=== PATIENT | male | born 1965 | race Caucasian/White ===

== ENCOUNTER 2020-07-11 02:30 | Outpatient (CLI) | payer BC, SELFPAY ==
[2020-07-11 18:16] LABS: SARS-CoV-2 RNA PCR Negative
== END 2020-07-11 02:31 | disposition home or self-care (01) ==
LOC: ANHCOVIDDT 02:30
PROVIDERS: PCP Physician Assistant; Visit Provider Internal Medicine Gastroenterology
DX: Z01.812 Encounter for preprocedural laboratory examination (principal); Z20.828 Contact with and (suspected) exposure to other viral communicable diseases
CPT/HCPCS: 87635; C9803; U0003

== ENCOUNTER 2020-07-13 01:54 | Day surgery (SDC) | payer BC, SELFPAY ==
[2020-07-07 15:26] VITALS: BMI 42.4
[2020-07-13 06:18] VITALS: BP 139/72; PULSE 51; RESP 16; TEMP 36.6; O2SAT 97; BMI 45.3
[2020-07-13] MEDS: LACTATED RINGERS 1,000 ML 150 ML IV CONT (06:29)
--- NOTE | 2020-07-13 07:07 | WPDANESEPPF ---
Anes - Initial Pre Proc Eval Procedure: Operation Date: 07/13/20 07:30 Proposed Procedures p Screening Colonoscopy - Cuco Weeks MD Date/Time: 07/13/20 07:07 Surgeon: Cuco Weeks MD Pre Op Diagnosis: Neoplasm Screening/ Hx Colon Polyps Patient Data Age: 55 Gender: M Height: 5 ft 11 in Weight: 147.6 kg Last Vital Signs Temp 36.6 C 07/13/20 06:18 Pulse 51 L 07/13/20 06:18 Resp 16 07/13/20 06:18 BP 139/72 07/13/20 06:18 Pulse Ox 97 07/13/20 06:18 Allergies Allergy/AdvReac Type Severity Reaction Status Date / Time No Known Allergies Allergy Verified 07/13/20 06:17 Home Medications Medication Instructions Recorded Confirmed Type fluticasone propionate 1 spray INTRANASAL BID 07/07/20 07/07/20 History montelukast 10 mg PO DAILY 07/07/20 07/07/20 History naproxen 500 mg PO BID 07/07/20 07/07/20 History Patient hx anesthesia problems: none Family hx anesthesia problems: none [facility] Social History Social History Smoking status: Never smoker Alcohol intake: current Drinks per week: 6 Alcohol use details: BEERS Substance use: never Substance use type: does not use Living arrangements: with family Spiritual care concerns: No Anes - Eval Final PreProcedure Day of Procedure 07/13/20 07:07 Patient weight: morbidly obese Heart: regular rate and rhythm Lungs: clear to auscultation Airway: Mallampati scale class II Neurological: alert and oriented Last oral intake: >/= 8 hours ASA classification: III Emergent: no Anesthetic plan: proceed Anesthesia type and monitoring: general GIVS and standard monitoring Informed Consent: The patient's anesthetic plan and its attendant risks and benefits were discussed with the patient/family/POA. Questions were solicited and answers provided to the satisfaction of the patient/family/POA.
--- NOTE | 2020-07-13 08:03 | P.CONGI_ITS ---
Assessment and Plan Assessment and plan (1) History of colon polyps: Code(s): Z86.010 - Personal history of colonic polyps Status: Acute Assessment and Plan: Patient has a personal history of colon polyps as well as a family history of colon polyps in his mother plan is for surveillance colonoscopy now and at 5 year intervals in the future. (2) Family history of colonic polyps: Code(s): Z83.71 - Family history of colonic polyps Status: Acute (3) Obese: Code(s): E66.9 - Obesity, unspecified Status: Acute GI Consult Note Consult date/time: 07/13/20 08:03 HPI: Sourav Evans is a 55 year old male Seen in evaluation at the request of ALESHIA Davis. Patient presents for screening colonoscopy. Patient has a personal history of colon polyps identified 5 years ago. His current weight appetite bowel movements are reported be normal. He denies abdominal pain. He has had no bleeding. Family history is significant that his mother had colon polyps. Review of Systems Review of Systems: All systems reviewed & are unremarkable except as noted in HPI and below [facility] Social History Social History Smoking status: Never smoker Alcohol intake: current Drinks per week: 6 Alcohol use details: BEERS Substance use: never Substance use type: does not use Living arrangements: with family Spiritual care concerns: No Meds Home Medications and Allergies Home Medications Medication Instructions Recorded Confirmed Type fluticasone propionate 1 spray INTRANASAL BID 07/07/20 07/07/20 History montelukast 10 mg PO DAILY 07/07/20 07/07/20 History naproxen 500 mg PO BID 07/07/20 07/07/20 History Allergies Allergy/AdvReac Type Severity Reaction Status Date / Time No Known Allergies Allergy Verified 07/13/20 06:17 Vital Signs Vital Signs - 24 hr 07/13/20 06:18 Temperature 97.9 F Pulse Rate 51 L Respiratory Rate 16 Blood Pressure 139/72 Pulse Oximetry 97 Exam Narrative: Exam Narrative: Physical exam reveals patient to be alert. Vital signs stable. HEENT exam unremarkable. HEENT exam unremarkable. Patient is alert anicteric vital signs stable. Lungs are clear heart is without murmur abdominal exam is obese, bowel sounds are present, soft nontender, with no organomegaly. Digital external rectal exam is normal.
[2020-07-13 08:05] VITALS: BP 140/86; PULSE 62; RESP 20; O2SAT 96
[2020-07-13 08:15] VITALS: BP 143/92; PULSE 59; RESP 18; O2SAT 99
[2020-07-13 08:25] VITALS: BP 144/87; PULSE 62; RESP 18; O2SAT 98
== END 2020-07-13 08:35 | disposition home or self-care (01) ==
PROVIDERS: PCP Physician Assistant; Visit Provider Internal Medicine Gastroenterology
PROC: 0DJD8ZZ Inspection of Lower Intestinal Tract, Via Natural or Artificial Opening Endoscopic (ICD-10-PCS; CPT 45378; principal; 2020-07-13 07:30)
DX: Z12.11 Encounter for screening for malignant neoplasm of colon (principal); K64.8 Other hemorrhoids; Z86.010 Personal history of colon polyps; Z83.71 Family history of colonic polyps; E66.01 Morbid (severe) obesity due to excess calories; Z68.42 Body mass index [BMI] 45.0-49.9, adult
CPT/HCPCS: 45378; J2704; J7120

== ENCOUNTER 2022-03-27 07:21 | Outpatient (CLI) | payer BC, SELFPAY ==
--- NOTE | 2022-04-09 19:42 | WPDHOMESLEEP ---
Sleep Study - Home Unattended Date of Study: 03/27/22 Ordering Provider: Guera Davis, LEONARDA Interpreting Provider: Anu Judge, DO Home Sleep Study Type: Apnea Link Air Height: 1.78 m Weight: 145.15 kg Body Mass Index: 45.9 Neck Circumference (inches): 18 [place]: 19 Reason for Sleep Study Snoring, daytime hypersomnia Sleep History The patient is a 57 year old male with seasonal allergies and benign prostatic hyperplasia that had a sleep study ordered by his primary care for evaluation of sleep apnea. The patient occasionally awakens from sleep short of breath. He occasionally awakens at night with heartburn, belching or cough. He frequently snores and occasionally it is loud enough that others complain. He rarely has trouble sleeping when he has a cold. He rarely wakes up gasping for air throughout the night. He occasionally has breathing problems at night observed by himself or others. He occasionally sweats excessively at night. He rarely notices heart palpitations or irregular heartbeats during the night. He frequently falls asleep during the day. he rarely falls asleep while driving. He denies cataplexy. He rarely has trouble at school or work due to sleepiness. He rarely feels unable to move when waking up or falling asleep. He occasionally experiences vivid dreamlike scenes upon awakening or falling asleep. He denies feeling afraid of going to sleep. He occasionally has nightmares and occasionally remembers his dreams. He occasionally has thoughts racing through his mind. He rarely feels sad or depressed. He constantly has anxiety. He occasionally has muscular tension. He denies noticing parts of his body jerk. He occasionally kicks during the night. He rarely has crawling and aching feelings in his legs but will occasionally have leg pain during the night. He rarely grinds his teeth during sleep but never awakens with morning jaw pain. He is occasionally bothered by pain during the day but rarely awakened by pain during the night. He occasionally wakes up feeling stiff in the morning. He occasionally wakes up with sore achy muscles. He occasionally wakes up with pain in the neck, spine or other joints. He goes to bed at 9:00 p.m. on weekdays and 10:00 p.m. on the weekends. It can take him 15 minutes to several hours to fall asleep. He wakes up twice throughout the night. When he awakens, he will walk through the house in look outside. It can take him 30 minutes to 3 hours to fall back asleep. He wakes up at 5:00 a.m. on both weekdays and weekends. He typically gets 5 hours of sleep per night. He does not stay in bed after waking up in the morning. He currently lives with his and 12-year-old grandson. He does not consume any caffeinated beverages within 2 hours of bedtime. He does not engage in physical exercise before bedtime. He will read and watch television before falling asleep. He will take naps in the afternoon or the evening and they are refreshing. He does not consume any caffeinated beverages throughout the day. He will drink 3-4 beers at least twice per week. He denies tobacco and recreational drug use. [facility] Social History Social History Smoking status: Never smoker Alcohol intake: current Drinks per week: 6 Alcohol use details: BEERS Substance use: never Substance use type: does not use Spiritual care concerns: No Medications Home Medications Medication Instructions Recorded Confirmed Type fluticasone propionate 50 1 spray intranasal BID 07/07/20 07/07/20 History mcg/actuation nasal spray,suspension montelukast 10 mg tablet 10 mg PO DAILY 07/07/20 07/07/20 History naproxen 500 mg tablet,delayed 500 mg PO BID 07/07/20 07/07/20 History release Sleep Procedure This test was performed using 4 channel monitoring including respiratory effort channel, snoring channel, heart rate
[2022-04-09 19:53] VITALS: BMI 45.9
== END 2022-03-28 10:38 | disposition home or self-care (01) ==
PROVIDERS: PCP Physician Assistant; Visit Provider Physician Assistant
DX: G47.39 Other sleep apnea (principal)
CPT/HCPCS: 95806

== ENCOUNTER 2022-06-23 12:37 | Outpatient (CLI) | payer BC, SELFPAY ==
--- NOTE | 2022-06-23 | ECHO_ITS ---
Patient Info Name: Sourav Evans Age: 57 years : 1965 Gender: Male Ht: 70 in Wt: 315 lbs BSA: 2.73 m2 HR: 58 bpm BP: 140 / 78 mmHg Technical Quality: Fair Exam Date: 06/23/2022 1:13 PM Exam Location: [facility] Patient Status: Outpatient Admit Date: 06/23/2022 Staff Ordering Physician: RyanGuera PA-C Concept Artist: Aleena Gentile RDCS Attending Provider: New*Guera PA-C Exam Type: CA echo doppler color flow Study Info Indications 10:G47.33 - OBSTRUCTIVE SLEEP APNEA SYNDROME Complete two-dimensional, color flow and Doppler transthoracic echocardiogram is performed. Summary 1. Complete two-dimensional, color flow and Doppler transthoracic echocardiogram is performed. 2. Left ventricular chamber dimension is mildly enlarged. 3. Left ventricular systolic function is normal, estimated at 60-65%. 4. The left ventricular diastolic function is grade II diastolic dysfunction. 5. E/e' 9 is minimally elevated. 6. There is trace tricuspid valve regurgitation. 7. No pulmonary hypertension, estimated pulmonary arterial systolic pressure is 28 mmHg. Left Ventricle E/e' 9 is minimally elevated. Left ventricular chamber dimension is mildly enlarged. Left ventricular systolic function is normal, estimated at 60-65%. The left ventricular diastolic function is grade II diastolic dysfunction. Right Ventricle Right ventricular systolic function is normal and with normal TAPSE 2.3 cm. Right ventricular chamber dimension is normal. Left Atria Left atrial chamber dimension is normal. Right Atria Right atrial chamber dimension is normal. Aortic Valve The aortic valve is trileaflet. There is no aortic valve stenosis. There is no aortic valve regurgitation. Pulmonic Valve There is no pulmonic regurgitation. Mitral Valve There is no mitral valve stenosis. There is no mitral valve regurgitation. Tricuspid Valve There is trace tricuspid valve regurgitation. No pulmonary hypertension, estimated pulmonary arterial systolic pressure is 28 mmHg. Pericardium/Pleural There is no pericardial effusion. Inferior Vena Cava Normal inferior vena cava with >50% collapse upon inspiration consistent with normal right atrial pressure, 5 mmHg. Aorta The aortic root size at the sinus of Valsalva is normal. Left Ventricular Outflow Tract Name Value Normal LVOT 2D LVOT Diameter 2.2 cm LVOT Doppler LVOT Peak Gradient 5 mmHg LVOT Mean Gradient 2 mmHg LVOT VTI 24 cm LVOT VTI/AV VTI Ratio 1.0 LVOT Stroke Volume 88 ml LVOT CO 16.6 l/min LVOT CI 6.1 l/min/m2 Pulmonic Valve Name Value Normal PV Doppler PV Peak Gradient
== END 2022-06-23 12:38 | disposition home or self-care (01) ==
LOC: ANHCARD 12:38
PROVIDERS: PCP Physician Assistant; Visit Provider Physician Assistant
DX: G47.33 Obstructive sleep apnea (adult) (pediatric) (principal); I51.89 Other ill-defined heart diseases
CPT/HCPCS: 93306

== ENCOUNTER → 2022-07-03 19:59 | Outpatient (CLI) | payer BC, SELFPAY ==
--- NOTE | 2022-07-29 15:44 | WPDSLEEPSTUD ---
Sleep Study Date of Study: 07/03/22 Ordering Provider: Guera Davis, LEONARDA Interpreting Physician: Amy Puente MD Sleep Study Type: CPAP Titration Height: 1.78 m Weight: 156.489 kg Body Mass Index: 49.5 Neck Circumference (inches): 18 [place]: 19 Reason for Sleep Study * 03/27/2022- home sleep test with ApneaLink AHI 28, desaturation 88%. He had a central apnea index of 12.6 which is elevated, greater than 5. He presents for an in-lab PAP titration * 06/23/2022 - Echo - ?Left ventricular systolic function is normal, estimated at 60-65%. Sleep History Sourav Evans is a 57 year old male with seasonal allergies and benign prostatic hyperplasia. The patient occasionally awakens from sleep short of breath.? He occasionally awakens at night with heartburn, belching or cough.? He frequently snores and occasionally it is loud enough that others complain.? He rarely has trouble sleeping when he has a cold.? He rarely wakes up gasping for air throughout the night.? He occasionally has breathing problems at night observed by others.? He occasionally sweats excessively at night.? He rarely notices heart palpitations or irregular heartbeats during the night.? He frequently falls asleep during the day. He rarely falls asleep while driving.? He denies loss of muscle tone with strong emotion. He rarely has trouble at work due to sleepiness.? He rarely feels unable to move when waking up or falling asleep.? He occasionally experiences vivid dreamlike scenes upon awakening or falling asleep.? He denies feeling afraid of going to sleep.? He occasionally has nightmares and occasionally remembers his dreams.? He occasionally has thoughts racing through his mind.? He rarely feels sad or depressed.? He constantly has anxiety.? He occasionally has muscular tension.? He denies noticing parts of his body jerk.? He occasionally kicks during the night.? He rarely has crawling and aching feelings in his legs but will occasionally have leg pain during the night.? He rarely grinds his teeth during sleep but never awakens with morning jaw pain.? He is occasionally bothered by pain during the day but rarely awakened by pain during the night.? He occasionally wakes up feeling stiff in the morning.? He occasionally wakes up with sore achy muscles.? He occasionally wakes up with pain in the neck, spine or other joints.? He goes to bed at 9:00 p.m. on weekdays and 10:00 p.m. on the weekends.? It can take him 15 minutes to several hours to fall asleep.? He wakes up twice throughout the night.? When he awakens, he will walk through the house. It can take him 30 minutes to 3 hours to fall back asleep.? He wakes at 5:00 a.m. on both weekdays and weekends.? He typically gets 5 hours of sleep per night.? He does not stay in bed after waking up in the morning.? He currently lives with his and 12-year-old grandson.? He does not consume any caffeinated beverages within 2 hours of bedtime.? He does not engage in physical exercise before bedtime.? He will read and watch television before falling asleep.? He will take naps in the afternoon or the evening and they are refreshing.? He does not consume any caffeinated beverages throughout the day.? He will drink 3-4 beers at least twice per week.? He denies tobacco and recreational drug use. [facility] Social History Social History Smoking status: Never smoker Alcohol intake: current Drinks per week: 6 Alcohol use details: BEERS Substance use: never Substance use type: does not use Spiritual care concerns: No Medications Home Medications Medication Instructions Recorded Confirmed Type fluticasone propionate 50 1 spray intranasal BID 07/07/20 07/07/20 History mcg/actuation nasal spray,suspension montelukast 10 mg tablet 10 mg PO DAILY 07/07/20 07/07/20 History naproxen 500 mg tablet,delayed 500 mg PO BID 07/07/20 07/07/20 History release
[2022-07-29 16:19] VITALS: BMI 49.5
== END ==
PROVIDERS: PCP Physician Assistant; Visit Provider Physician Assistant
DX: G47.33 Obstructive sleep apnea (adult) (pediatric) (principal); N40.0 Benign prostatic hyperplasia without lower urinary tract symptoms
CPT/HCPCS: 95811

== ENCOUNTER 2023-05-02 01:56 | Day surgery (SDC) | payer BC, SELFPAY ==
[2023-04-24 15:16] VITALS: BMI 45.9
[2023-05-02 08:43] VITALS: BP 146/76; PULSE 49; RESP 20; TEMP 36.2; O2SAT 98; BMI 47.0
--- NOTE | 2023-05-02 08:49 | P.PNAN_ITS ---
Anes - Initial Pre Proc Eval Procedure: Operation Date: 05/02/23 09:30 Proposed Procedures p Colonoscopy - Cuco Weeks MD Date/Time: 05/02/23 08:49 Surgeon: Cuco Weeks MD Pre Op Diagnosis: hx of colon polyps Patient Data Age: 58 Gender: M Height: 1.78 m Weight: 148.9 kg Last Vital Signs Temp 97.2 F L 05/02/23 08:43 Pulse 49 L 05/02/23 08:43 Resp 20 05/02/23 08:43 BP 146/76 H 05/02/23 08:43 Pulse Ox 98 05/02/23 08:43 O2 Del Method Room Air 05/02/23 08:43 Allergies Allergy/AdvReac Type Severity Reaction Status Date / Time No Known Allergies Allergy Verified 05/02/23 08:42 Home Medications Medication Instructions Recorded Confirmed Type fluticasone propionate 50 1 spray intranasal BID 07/07/20 05/02/23 History mcg/actuation nasal spray,suspension montelukast 10 mg tablet 10 mg PO DAILY 07/07/20 05/02/23 History naproxen 500 mg tablet,delayed 500 mg PO DAILY 07/07/20 05/02/23 History release diltiazem HCl 120 mg 120 mg PO DAILY 04/24/23 05/02/23 History capsule,extended release 24 hr tamsulosin 0.4 mg capsule 0.4 mg PO HS 04/24/23 05/02/23 History Patient hx anesthesia problems: none Family hx anesthesia problems: none Results Review: All pre-operative results and documents have been reviewed as part of the pre- operative evaluation. [facility] Social History Social History Smoking status: Never smoker Alcohol intake: current Drinks per week: 12 Alcohol use details: BEERS Substance use: never Substance use type: does not use Living arrangements: with family Spiritual care concerns: No Anes - Eval Final PreProcedure Day of Procedure 05/02/23 08:49 Patient weight: morbidly obese Heart: regular rate and rhythm Lungs: clear to auscultation Airway: Mallampati scale class II Neurological: alert and oriented Last oral intake: >/= 8 hours ASA classification: III Emergent: no Anesthetic plan: proceed Anesthesia type and monitoring: general GIVS and standard monitoring Results Review: All pre-operative results and documents have been reviewed as part of the pre- operative evaluation. Informed Consent: The patient's anesthetic plan and its attendant risks and benefits were discussed with the patient/family/POA. Questions were solicited and answers provided to the satisfaction of the patient/family/POA.
--- NOTE | 2023-05-02 08:54 | PM.HPGS ---
History of Present Illness History of Present Illness Consent: Risks, benefits, and alternatives have been discussed and questions answered. Patient agrees to proceed with procedure. Chief complaint: hx of colon polyps Narrative: Sourav Evans is a 58 year old male Presents for screening colonoscopy. Patient has a history of colon polyps in the past. Most of these exams were performed in [place]. Most recent colonoscopy 2020 was unremarkable. Family history is significant that his mother has had colon polyps. Patient presents today for screening colonoscopy. He reports his current weight appetite and bowel movements are normal. Review of Systems Review of Systems: Review of systems noncontributory. [facility] Social History Social History Smoking status: Never smoker Alcohol intake: current Drinks per week: 12 Alcohol use details: BEERBrionna Substance use: never Substance use type: does not use Living arrangements: with family Spiritual care concerns: No Meds Home Medications and Allergies Home Medications Medication Instructions Recorded Confirmed Type fluticasone propionate 50 1 spray intranasal BID 07/07/20 05/02/23 History mcg/actuation nasal spray,suspension montelukast 10 mg tablet 10 mg PO DAILY 07/07/20 05/02/23 History naproxen 500 mg tablet,delayed 500 mg PO DAILY 07/07/20 05/02/23 History release diltiazem HCl 120 mg 120 mg PO DAILY 04/24/23 05/02/23 History capsule,extended release 24 hr tamsulosin 0.4 mg capsule 0.4 mg PO HS 04/24/23 05/02/23 History Allergies Allergy/AdvReac Type Severity Reaction Status Date / Time No Known Allergies Allergy Verified 05/02/23 08:42 Vital Signs Vital Signs - 24 hr 05/02/23 08:43 Temperature 97.2 F L Pulse Rate 49 L Respiratory Rate 20 Blood Pressure 146/76 H Pulse Oximetry 98 Oxygen Delivery Room Air Exam Narrative: Physical exam reveals patient to be alert. Vital signs stable. HEENT exam is unremarkable. Patient is anicteric. Lungs are clear to auscultation and percussion. Heart is without murmur or extra sounds. Abdominal exam bowel sounds are present soft nontender with no organomegaly. Digital external rectal exam is normal. Assessment and Plan Assessment and plan (1) Family history of colonic polyps: Code(s): Z83.71 - Family history of colonic polyps Status: Acute Assessment and Plan: Patient's mother has had colon polyps. Patient himself has had colon polyps. Anticipate follow-up colonoscopy at 5 year intervals. Further recommendations may be given after endoscopy. (2) History of colon polyps: Code(s): Z86.010 - Personal history of colonic polyps Status: Acute
[2023-05-02] MEDS: LACTATED RINGERS 1,000 ML 150 ML IV CONT (08:55)
[2023-05-02 09:49] VITALS: BP 124/71; PULSE 64; RESP 20; O2SAT 96
[2023-05-02 09:59] VITALS: BP 123/72; PULSE 63; RESP 15; O2SAT 97
[2023-05-02 10:09] VITALS: BP 139/82; PULSE 55; RESP 19; O2SAT 97
== END 2023-05-02 10:22 | disposition home or self-care (01) ==
PROVIDERS: PCP Physician Assistant; Visit Provider Internal Medicine Gastroenterology
PROC: 0DJD8ZZ Inspection of Lower Intestinal Tract, Via Natural or Artificial Opening Endoscopic (ICD-10-PCS; CPT 45378; principal; 2023-05-02 09:30)
DX: Z12.11 Encounter for screening for malignant neoplasm of colon (principal); Z86.010 Personal history of colon polyps; Z83.71 Family history of colonic polyps; E66.01 Morbid (severe) obesity due to excess calories; Z68.42 Body mass index [BMI] 45.0-49.9, adult
CPT/HCPCS: 45378; J2704; J7120

== ENCOUNTER 2024-02-13 14:05 | Outpatient (CLI) | payer BC, SELFPAY | END 2024-02-13 14:06 | disposition home or self-care (01) | PROVIDERS: PCP Physician Assistant; Visit Provider Urology | DX: Z01.818 Encounter for other preprocedural examination (principal); R97.20 Elevated prostate specific antigen [PSA] | CPT/HCPCS: 87086 ==

== ENCOUNTER 2024-02-18 00:47 | Day surgery (SDC) | payer BC, SELFPAY ==
[2024-02-06 09:04] VITALS: BMI 47.4
--- NOTE | 2024-02-06 09:09 | PC.NURSE ---
Report to the Outpatient Waiting Room, entrance under the green pavilion located off [facility], at time _0800_ on date _[id number]_. Planned Procedure Time: _1000_. Time changes happen often and if your time is changed the preop area will call you the afternoon before. - You and your visitor will be asked to self-screen and do not enter if you have any COVID symptoms. - A mask is optional within the hospital at this time. Patients may have clear liquids (water, carbonated beverages, clear teas, apple juice) until 3 hours prior to surgery with a maximum of 20 ounces. - No food from midnight until time of surgery Take the following medications with a SIP of water the morning of surgery: ___Diltiazem and Flonase DO NOT STOP ANY OF YOUR OTHER PRESCRIPTION MEDICATIONS PRIOR TO SURGERY ?EXCEPT THE FOLLOWING Medications to discontinue per physician ___Please ask Dr Martin office about the naproxen. Date to take last dose Please no make-up, nail kazakh, hairspray, perfume, deodorant, or body powder the day of surgery. No jewelry (including any body piercings) or valuables the day of surgery, leave them at home. Please take a shower or bath the night before, or the morning of, surgery with an antibacterial soap. Wear comfortable, loose fitting clothing. - Jewelry must be removed prior to entering the operating room. Rings and piercings that are not removed may be cut off. - The hospital will not accept responsibility for valuables. - Please leave all valuables, including medications, at home the day of surgery. If you are going home after surgery, a licensed cdl dedicated truck driver must drive you home. - NO public transportation without another adult if you receive anesthesia. - We recommend that an adult stay with you for 24 hours following discharge. - We also recommend that you do not drive, make important decision, drink alcoholic beverages, or take any drugs that were not prescribed by your health care provider for at least 24 hours after your discharge time. Follow any additional instructions given to you from your surgeon. If you or anyone in your household have experienced Covid symptoms in the past week, please notify your surgeon or the nurse liaison at the phone number below for possible testing. Telephone instructions given to _Sourav___and asked if any additional questions and then verbalized understanding. Patient advised to call surgeon office or pre surgery nurse liaison [phone] if any additional questions.
--- NOTE | 2024-02-11 16:06 | PC.NURSE ---
Report to the Outpatient Waiting Room, entrance under the green pavilion located off [facility], at time _0600_ on date _[id number]_. Planned Procedure Time: _0730_. Time changes happen often and if your time is changed the preop area will call you the afternoon before. - You and your visitor will be asked to self-screen and do not enter if you have any COVID symptoms. - A mask is optional within the hospital at this time. Patients may have clear liquids (water, carbonated beverages, clear teas, apple juice) until 3 hours prior to surgery with a maximum of 20 ounces. - No food from midnight until time of surgery Take the following medications with a SIP of water the morning of surgery: ___Diltiazem and Flonase DO NOT STOP ANY OF YOUR OTHER PRESCRIPTION MEDICATIONS PRIOR TO SURGERY ?EXCEPT THE FOLLOWING Medications to discontinue per physician ____Please ask Dr Martin office about Naproxen____ Date to take last dose Please no make-up, nail argentine, hairspray, perfume, deodorant, or body powder the day of surgery. No jewelry (including any body piercings) or valuables the day of surgery, leave them at home. Please take a shower or bath the night before, or the morning of, surgery with an antibacterial soap. Wear comfortable, loose fitting clothing. - Jewelry must be removed prior to entering the operating room. Rings and piercings that are not removed may be cut off. - The hospital will not accept responsibility for valuables. - Please leave all valuables, including medications, at home the day of surgery. If you are going home after surgery, a licensed cdl team truck driver must drive you home. - NO public transportation without another adult if you receive anesthesia. - We recommend that an adult stay with you for 24 hours following discharge. - We also recommend that you do not drive, make important decision, drink alcoholic beverages, or take any drugs that were not prescribed by your health care provider for at least 24 hours after your discharge time. Follow any additional instructions given to you from your surgeon. If you or anyone in your household have experienced Covid symptoms in the past week, please notify your surgeon or the nurse liaison at the phone number below for possible testing. Telephone instructions given to _Sourav__and asked if any additional questions and then verbalized understanding. Patient advised to call surgeon office or pre surgery nurse liaison [phone] if any additional questions.
[2024-02-18 06:02] VITALS: BP 147/69; PULSE 60; RESP 18; TEMP 36.3; O2SAT 95
[2024-02-18] MEDS: LACTATED RINGERS 1,000 ML 30 ML IV CONT (06:22)
--- NOTE | 2024-02-18 06:48 | P.PNAN_ITS ---
Anes - Initial Pre Proc Eval Procedure: Operation Date: 02/18/24 07:30 Proposed Procedures p Transrectal Fusion Guided Prostate Biopsy - Arsenio Martin MD Date/Time: 02/18/24 06:48 Surgeon: Arsenio Martin MD Pre Op Diagnosis: elevated psa Patient Data Age: 58 Gender: M Height: 1.78 m Weight: 151.9 kg Last Vital Signs Temp 97.4 F L 02/18/24 06:02 Pulse 60 02/18/24 06:02 Resp 18 02/18/24 06:02 BP 147/69 H 02/18/24 06:02 Pulse Ox 95 02/18/24 06:02 O2 Del Method Room Air 02/18/24 06:02 Allergies Allergy/AdvReac Type Severity Reaction Status Date / Time No Known Allergies Allergy Verified 02/18/24 06:12 Home Medications Medication Instructions Recorded Confirmed Type fluticasone propionate 50 1 spray intranasal BID 07/07/20 02/18/24 History mcg/actuation nasal spray,suspension montelukast 10 mg tablet 10 mg PO DAILY 07/07/20 02/18/24 History naproxen 500 mg tablet,delayed 500 mg PO DAILY 07/07/20 02/18/24 History release diltiazem HCl 120 mg 120 mg PO DAILY 04/24/23 02/18/24 History capsule,extended release 24 hr tamsulosin 0.4 mg capsule 0.4 mg PO HS 04/24/23 02/18/24 History Patient hx anesthesia problems: none Family hx anesthesia problems: none Results Review: All pre-operative results and documents have been reviewed as part of the pre-operative evaluation. [facility] Social History Social History Smoking status: Never smoker Alcohol intake: current Drinks per week: 4 Alcohol use details: BEERS Substance use: never Substance use type: does not use Living arrangements: with family Spiritual care concerns: No Anes - Eval Final PreProcedure Day of Procedure 02/18/24 06:48 Patient weight: obese Heart: regular rate and rhythm Lungs: clear to auscultation Airway: Mallampati scale class II Neurological: alert and oriented Last oral intake: >/= 8 hours ASA classification: III Emergent: no Anesthetic plan: proceed Anesthesia type and monitoring: general GIVS and standard monitoring Results Review: All pre-operative results and documents have been reviewed as part of the pre- operative evaluation. Informed Consent: The patient's anesthetic plan and its attendant risks and benefits were discussed with the patient/family/POA. Questions were solicited and answers provided to the satisfaction of the patient/family/POA.
--- NOTE | 2024-02-18 07:23 | WPDHPUPDATE1 ---
History and Physical Update Update Date/Time: 02/18/24 07:23 History and Physical has been reviewed, including an updated exam of the patient. There are NO changes in the patient's condition. Risks, benefits, and alternatives have been discussed and questions answered. Patient agrees to proceed with procedure. Proceed with uronav us and prostate biopsy
[2024-02-18] MEDS: ceFAZolin 3 GM/D5W 100 ML 100 ML IVPB (07:30)
--- NOTE | 2024-02-18 07:53 | W.PM.PROC2 ---
Procedure Note - Detailed Date of Procedure 02/18/24 Pre-op Diagnosis elevated psa Post-op Diagnosis Same Procedure Performed Uronav us and prostate biopsy Surgeon Arsenio Martin MD Anesthesia MAC Description of Procedure Patient was taken to the operative suite correctly identified. He was placed in lateral decubitus position and IV sedation was given. Transrectal ultrasound was then performed. The MRI image was fused to the ultrasound machine. Three cores were taken from the region of interest. Twelve standard cores were then taken. Patient tolerated procedure well without any complications was taken recovery stable condition. He is to call for path results in 1 week. This completes dictation. Please send a copy of op note to my office. Drains No Packing No Pathology Yes Complications No immediate complications Condition Stable Disposition PACU
[2024-02-18 08:03] VITALS: BP 140/68; PULSE 59; RESP 16; O2SAT 96
[2024-02-18 08:30] VITALS: BP 153/65; PULSE 60
[2024-02-18 08:55] VITALS: BP 147/78; PULSE 48
--- NOTE | 2024-02-18 09:02 | SUR.PHASEII ---
Vitals are stable. Patient is unhooked from the monitors waiting for a ride.
== END 2024-02-18 09:06 | disposition home or self-care (01) ==
PROVIDERS: PCP Physician Assistant; Visit Provider Urology
PROC: (CPT 55700; principal; 2024-02-18 07:30)
DX: C61 Malignant neoplasm of prostate (principal); E66.9 Obesity, unspecified; Z68.42 Body mass index [BMI] 45.0-49.9, adult
CPT/HCPCS: 76872; 55700; 88342; G0416; J0690; J2250; J2405; J2704; J3010; J7120

== ENCOUNTER 2024-12-14 13:42 | Outpatient (CLI) | payer BC, SELFPAY ==
--- NOTE | ~2024-12-14 | US_ITS ---
EXAMINATION:US venous doppler LE BI INDICATION:Localized edema TECHNIQUE: Multiple grayscale, color flow and Doppler images of the right and left lower extremity de ep venous systems were obtained and reviewed. COMPARISON:No prior studies for comparison. FINDINGS: The common femoral, superficial femoral and popliteal veins demonstrate normal respiratory variation, augmentation and compressibility. Color flow is also seen within the posterior tibial, pe roneal, greater saphenous and profunda veins. IMPRESSION: 1: No lower extremity deep venous thrombosis. Reviewed, dictated and finalized at location B.
--- OUTSIDE RECORDS SUMMARY | 2024-12-14 16:20 | XMS_ITS | Clinical Summary ---
Author Organization [facility] [address] Address [address] [place] [address] Care Team Providers Care Deputy Probation Officer Name Role Phone StephanieGuera garland Nancy MONK Primary Care Pr ovider Allergies No known active allergies Medications ibuprofen (ibuprofen) 200 mg tab/cap Take by mouth every 6 (six) hours as needed for pain. Active dilTIAZem CD 120 mg 24 hr capsule Take 1 capsule (120 mg total) by mouth daily 4 Active fluticasone propionate (FLONASE) 50 mcg/actuation nasal spray Administer 2 sprays into each nostril daily Active montelukast (SINGULAIR) 10 mg tablet Take 1 tablet (10 mg total) by mouth daily Active tadalafiL (CIALIS) 20 mg tablet Take 1 tablet (20 mg total) by mouth daily as needed Active tamsulosin (FLOMAX) 0.4 mg extended release capsule Take 1 capsule (0.4 mg total) by mouth Active celecoxib (CeleBREX) 100 mg capsule TAKE 1 CAPSULE BY MOUTH TWICE A DAY 60 capsule 4 Active Active Problems Problem Noted Date Diagnosed Date Primary osteoarthritis of left knee 01/05/2019 Surgical History Surgery Date Site/Laterality Comments ROTATOR CUFF REPAIR SHOULDER SURGERY Medical History Medical History Date Comments Known health problems: none Family History Medical History Relation Name Comments No Known Problems Father No Known Problems Mother No Known Problems Sister Relation Name Status Comments Father Mother Sister Social History Tobacco Use Types Packs/Day Years Used Date Smoking Tobacco: Never Smokeless Tobacco: Never Alcohol Use Standard Drinks/Week Comments Yes 0 (1 standard drink = 0.6 oz pur e alcohol) Personal Safety Answer Date Recorded Getting School Help Needed Not on file 12/14 Sex and Gender Information Value Date Recorded Sex Assigned at Not on file 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 Gender Identity Not on file Sexual Orientation Not on file Obstetrics History Last Filed Vital Signs Vital Sign Reading Time Taken Comments Blood Pressure 126/75 01/08/2019 9:53 AM CDT Pulse 58 01/08/2019 9:53 AM CDT Temperature - - Respiratory Rate - - Oxygen Saturation - - Inhaled Oxygen Concentration - - Weight 152.4 kg (336 lb) 02/27/2024 2:18 PM CDT Height 179.1 cm (5' 10.5 ) 02/27/2024 2:18 PM CD T Body Mass Index 47.53 02/27/2024 2:18 PM CDT Plan of Treatment Health Maintenance Due Date Last Done Comments Colon Cancer Screening-Colonoscopy 1965 Depression Screening 1965 Hepatitis C Screening 1965 Prostate Cancer Screening-PSA 1965 DTaP/Tdap/Td Vaccine (1 - Tdap) 02/27/1975 Hepatitis B Screening 02/27/1982 Regular Well Visit/Exam 18-64 02/27/1982 Zoster Vaccine (1 of 2) 02/27/2014 08/10/2023 Influenza Vaccine (#1) 2024 3, 07/20/2022, 05/31/2021, Additional history exists Pneumococcal vaccine <65 Aged Out 08/10/2023 No longer eligible based on patient's age to complete this topic Insurance [employer] Care Teams Deputy Probation Officer Relationship Specialty Start Date End Date Guera Davis PA PCP - General Physician Backup Administrative Coordinator 09/02/18
--- OUTSIDE RECORDS SUMMARY | 2024-12-14 16:20 | XMS_ITS | Data Portability ---
Author Organization [facility] [place] HELEN[place]gie Address [address] [facility] [facility] [place] [address] Care Team Providers Care Media Sales Consultant Name Role Phone CAPRICE CARBALLO Primary Care Provider Unavailab le Assessment No assessment recorded. Plan of Treatment Reminders Order Date Submit Date Provider Last Modified By Organization Details Last Modified Time Details Appointments ANY 15 2024 04:15P M ALESHIA Ervin Not available Not available Not available Lab TSH + free T4, serum 2023 024 [email or web address] [facility], [address] [place] [address], [id number], 05/05/2024 07:53:07 CMP, serum or plasma 2023 024 [email or web address] [facility], [address] [place] [address], [id number], 05/05/2024 07:53:06 CBC w/ auto diff 2023 024 [email or web address] [facility], [address] [place] [address], [id number], 05/05/2024 07:53:06 lipid panel, serum 2023 024 [facility], [address] [place] [address], [facility], [place], [address], 05/05/2024 07:53:06 HbA1c (hemoglob in A1c), blood 2023 024 [email or web address] [facility], [address] [place] [address] 2, [place], [address], 05/05/2024 07:53:07 Referral None recorded. Procedures None recorded. Surgeries None recorded. Imaging None recorded. Medication Orders monteluka st 10 mg tablet 2023 [email or web address] [facility] #[id number], [address] [place], [address], 12/07/2024 17:18:14 fluticaso ne propionat e 50 mcg/actua tion nasal spray,isaak pension 2023 [id number], [address] [place], [address], 12/04/2023 09:27:49 diltiazem CD 120 mg capsule,e xtended release 24 hr 2023 [id number], [address] [place], [address], 12/04/2023 09:27:49 Patient TargetsNo targets recorded. Patient Instructions Encounter Date Encounter Id Patient Instructions Last Modified By Organization Details Last Modified Time 06/10/2024 [id number] A healthy lifestyle: care instructions [email or web address] Not available 06/28/2024 12:29:56 Reason for Referral None Reported. Results Created Date Observation Date Name Description Value Unit Range Abnormal Flag Note LastModifiedBy Organization Detail LastModifiedTime 05/16/2005/19/2024 Bacte judy ident ified in Urine by Cultu re bacteria identified in urine by culture cultu re, urine , routi ne Not Available Not Available 11/16/2024 15:26:48 05/16/2005/19/2024 Urina lysis compl ete panel - Urine color of urine YELLOW color Not Available Not Available 10/31 15:26:48 05/16/2005/19/2024 Urina lysis compl ete panel - Urine appearance of urine CLEAR appea luiz Not Available Not Available 11/16/2024 15:26:48 05/16/2005/19/2024 Urina lysis compl ete panel - Urine specific gravity of urine by test strip 1.02 speci fic gravi ty Not Available Not Available 11/16/2024 15:26:48 05/16/2005/19/2024 Urina lysis compl ete panel - Urine pH of urine by test strip 5.5 pH Not Available Not Available 10/31 15:26:48 05/16/20 24 05/19/2024 Urina lysis compl ete panel - Urine glucose [presence] in urine by test strip NEGATI VE gluco se Not Available Not Available 11/16/2024 15:26:48 05/16/20 24 05/19/2024 Urina lysis compl ete panel - Urine bilirubin.to jonas [presence] in urine by test strip NEGATI VE bilir ubin Not Available Not Available 11/16/2024 15:26:48 05/16/20 24 05/19/2024 Urina lysis compl ete panel - Urine ketones [presence] in urine by test strip NEGATI VE keton es Not Available Not Available 11/16/2024 15:26:48 05/16/20 24 05/19/2024 Urina lysis compl ete panel - Urine hemoglobin [presence] in urine by test strip NEGATI VE occul t blood Not Available Not Available 11/16/2024 15:26:48 05/16/20 24 05/19/2024 Urina lysis compl ete panel - Urine protein [presence] in urine by test strip NEGATI VE prote in Not Available Not Available 11/16/2024 15:26:48 05/16/20 24 05/19/2024 Urina lysis compl ete panel - Urine nitrite [presence] in urine by test strip NEGATI VE nitri te Not Available Not Available 11/16/2024 15:26:48 05/16/20 24 05/19/2024 Urina lysis compl ete panel - Urine leukocyte esterase [presence] in urine by test strip NEGATI VE leuko cyte vivek ase Not Available Not Available 11/16/2024 15:26:48 05/16/20 24 05/19/2024 Urina lysis compl ete panel - Urine leukocytes [#/area] in urine sediment by microscopy high power field NONE SEEN WBC Not Available Not Available 15:26:48 05/16/20 24 05/19/2024 Urina lysis compl ete panel - Urine erythrocytes [#/area] in urine sediment by microscopy high power field NONE SEEN RBC Not Available Not Available 15:26:48 05/16/20 24 05/19/2024 Urina lysis compl ete panel - Urine epithelial cells.squamo us [#/area] in urine sediment by microscopy high power field NONE SEEN squam ous epith elial cells Not Available Not Available 11/16/2024 15:26:48 05/16/20 24 05/19/2024 Urina lysis compl ete panel - Urine bacteria [#/area] in urine sediment by microscopy high power field NONE SEEN bacte judy Not Available Not Available 11/16/2024 15:26:48 05/16/20 24 05/19/2024 Urina lysis compl ete panel - Urine hyaline casts [#/area] in urine sediment by microscopy low power field NONE SEEN hyali ne cast Not Available Not Available 11/16/2024 15:26:48 05/16/20 24 05/19/2024 CBC W Auto Diffe renti al panel - Blood leukocytes [#/volume] in blood by automated count white blood cell count Not Available Not Available 11/16/2024 15:26:47 05/16/20 24 05/19/2024 CBC W Auto Diffe renti al panel - Blood erythrocytes [#/volume] in blood by automated count red blood cell count Not Available Not Available 11/16/2024 15:26:47 05/16/20 24 05/19/2024 CBC W Auto Diffe renti al panel - Blood hemoglobin [mass/volume ] in blood hemog lobin Not Available Not Available 11/16/2024 15:26:47 05/16/20 24 05/19/2024 CBC W Auto Diffe renti al panel - Blood hematocrit [volume fraction] of blood by automated count hemat ocrit Not Available Not Available 11/16/2024 15:26:47 05/16/20 24 05/19/2024 CBC W Auto Diffe renti al panel - Blood MCV [entitic volume] by automated count MCV Not Available Not Available 10/31 15:26:47 05/16/20 24 05/19/2024 CBC W Auto Diffe renti al panel - Blood MCH [entitic mass] by automated count MCH Not Available Not Available 10/31 15:26:47 05/16/20 24 05/19/2024 CBC W Auto Diffe renti al panel - Blood MCHC [mass/volume ] by automated count MCHC Not Available Not Available 10/31 15:26:47 05/16/20 24 05/19/2024 CBC W Auto Diffe renti al panel - Blood erythrocyte distribution width [ratio] by automated count RDW Not Available Not Available 10/31 15:26:47 05/16/20 24 05/19/2024 CBC W Auto Diffe renti al panel - Blood platelets [#/volume] in blood by automated count plate let count Not Available Not Available 11/16/2024 15:26:47 05/16/20 24 05/19/2024 CBC W Auto Diffe renti al panel - Blood platelet mean volume [entitic volume] in blood by jovany MPV Not Available Not Available 0 11/16/2024 15:26:47 05/16/20 24 05/19/2024 CBC W Auto Diffe renti al panel - Blood neutrophils [#/volume] in blood by automated count absol table mountain neutr ophil s Not Available Not Available 11/16/2024 15:26:47 05/16/20 24 05/19/2024 CBC W Auto Diffe renti al panel - Blood lymphocytes [#/volume] in blood by automated count absol table mountain lymph ocyte s Not Available Not Available 11/16/2024 15:26:47 05/16/20 24 05/19/2024 CBC W Auto Diffe renti al panel - Blood monocytes [#/volume] in blood by automated count absol table [place] monoc ytes Not Available Not Available 11/16/2024 15:26:47 05/16/20 24 05/19/2024 CBC W Auto Diffe renti al panel - Blood eosinophils [#/volume] in blood by automated count absol table mountain eosin ophil s Not Available Not Available 11/16/2024 15:26:47 05/16/20 24 05/19/2024 CBC W Auto Diffe renti al panel - Blood basophils [#/volume] in blood by automated count absol table mountain basop hils Not Available Not Available 11/16/2024 15:26:47 05/16/20 24 05/19/2024 CBC W Auto Diffe renti al panel - Blood neutrophils/ 100 leukocytes in blood by automated count neutr ophil s Not Available Not Available 11/16/2024 15:26:47 05/16/20 24 05/19/2024 CBC W Auto Diffe renti al panel - Blood lymphocytes/ 100 leukocytes in blood by automated count lymph ocyte s Not Available Not Available 11/16/2024 15:26:47 05/16/20 24 05/19/2024 CBC W Auto Diffe renti al panel - Blood monocytes/10 0 leukocytes in blood by automated count monoc ytes Not Available Not Available 11/16/2024 15:26:47 05/16/20 24 05/19/2024 CBC W Auto Diffe renti al panel - Blood eosinophils/ 100 leukocytes in blood by automated count eosin ophil s Not Available Not Available 11/16/2024 15:26:47 05/16/20 24 05/19/2024 CBC W Auto Diffe renti al panel - Blood basophils/10 0 leukocytes in blood by automated count basop hils Not Available Not Available 11/16/2024 15:26:47 05/16/20 24 05/19/2024 Hemog lobin A1c/H emogl obin. total in Blood hemoglobin A1C/hemoglob in.total in blood high hemog lobin A1C Not Available Not Available 11/16/2024 15:26:47 05/16/20 24 05/19/2024 Compr ehens johnny metab olic 1999 panel - Serum or Plasm a glucose [mass/volume ] in serum or plasma high gluco se Not Available Not Available 11/16/2024 15:26:47 05/16/20 24 05/19/2024 Compr ehens johnny metab olic 2000 panel - Serum or Plasm a urea nitrogen [mass/volume ] in serum or plasma urea nitro gen (BUN) Not Available Not Available 11/16/2024 15:26:47 05/16/20 24 05/19/2024 Compr ehens johnny metab olic 2000 panel - Serum or Plasm a creatinine [mass/volume ] in serum or plasma creat inine Not Available Not Available 11/16/2024 15:26:47 05/16/20 24 05/19/2024 Compr PayParrotens johnny metab olic 1999 panel - Serum or Plasm a glomerular filtration rate/1.73 sq M.predicted [volume rate/area] in serum, plasma or blood by creatinine-b ased formula (CKD-epi 2020) eGFR Not Available Not Available 10/31 15:26:47 05/16/20 24 05/19/2024 Compr ehens johnny metab olic 1999 panel - Serum or Plasm a urea nitrogen/cre atinine [mass ratio] in serum or plasma SEE NOTE: BUN/c reati nine ratio Not Available Not Available 11/16/2024 15:26:47 05/16/20 24 05/19/2024 Compr PayParrotens johnny metab olic 1999 panel - Serum or Plasm a sodium [moles/volum e] in serum or plasma sodiu m Not Available Not Available 11/16/2024 15:26:47 05/16/20 24 05/19/2024 Compr ehens johnny metab olic 1999 panel - Serum or Plasm a potassium [moles/volum e] in serum or plasma potas sium Not Available Not Available 11/16/2024 15:26:47 05/16/20 24 05/19/2024 Compr PayParrotens johnny metab olic 1999 panel - Serum or Plasm a chloride [moles/volum e] in serum or plasma chlor olivia Not Available Not Available 11/16/2024 15:26:47 05/16/20 24 05/19/2024 Compr PayParrotens johnny metab olic 1999 panel - Serum or Plasm a carbon dioxide, total [moles/volum e] in serum or plasma carbo n dioxi de Not Available Not Available 11/16/2024 15:26:47 05/16/20 24 05/19/2024 Compr PayParrotens johnny metab olic 1999 panel - Serum or Plasm a calcium [mass/volume ] in serum or plasma calci um Not Available Not Available 11/16/2024 15:26:47 05/16/20 24 05/19/2024 Compr PayParrotens johnny metab olic 1999 panel - Serum or Plasm a protein [mass/volume ] in serum or plasma prote in, total Not Available Not Available 11/16/2024 15:26:47 05/16/20 24 05/19/2024 Compr PayParrotens johnny metab ol 1999 panel - Serum or Plasm a albumin [mass/volume ] in serum or plasma album in Not Available Not Available 11/16/2024 15:26:47 05/16/20 24 05/19/2024 Compr PayParrotens johnny metab olic 1999 panel - Serum or Plasm a globulin [mass/volume ] in serum by calculation globu soto Not Available Not Available 11/16/2024 15:26:47 05/16/20 24 05/19/2024 Compr PayParrotens johnny metab olic 1999 panel - Serum or Plasm a albumin/glob ulin [mass ratio] in serum or plasma album in/gl obuli n ratio Not Available Not Available 11/16/2024 15:26:47 05/16/20 24 05/19/2024 Compr PayParrotens johnny metab olic 1999 panel - Serum or Plasm a bilirubin.to jonas [mass/volume ] in serum or plasma bilir ubin, total Not Available Not Available 11/16/2024 15:26:47 05/16/20 24 05/19/2024 Compr PayParrotens johnny metab olic 1999 panel - Serum or Plasm a alkaline phosphatase [enzymatic activity/vol ume] in serum or plasma alkal ine phosp hatas e Not Available Not Available 11/16/2024 15:26:47 05/16/20 24 05/19/2024 Compr PayParrotens johnny metab olic 1999 panel - Serum or Plasm a aspartate aminotransfe rase [enzymatic activity/vol ume] in serum or plasma AST Not Available Not Available 10/31 15:26:47 05/16/20 24 05/19/2024 Compr ehens johnny metab olic 2000 panel - Serum or Plasm a alanine aminotransfe rase [enzymatic activity/vol ume] in serum or plasma ALT Not Available Not Available 10/31 15:26:47 05/16/20 24 05/19/2024 Lipid 1996 panel - Serum or Plasm a cholesterol [mass/volume ] in serum or plasma lena stero l, total Not Available Not Available 11/16/2024 15:26:47 05/16/20 24 05/19/2024 Lipid 1996 panel - Serum or Plasm a cholesterol in HDL [mass/volume ] in serum or plasma HDL lena stero l Not Available Not Available 11/16/2024 15:26:47 05/16/20 24 05/19/2024 Lipid 1996 panel - Serum or Plasm a triglyceride [mass/volume ] in serum or plasma trigl yceri kirby Not Available Not Available 11/16/2024 15:26:47 05/16/20 24 05/19/2024 Lipid 1996 panel - Serum or Plasm a cholesterol in LDL [mass/volume ] in serum or plasma by calculation high LDL-c holes terol Not Available Not Available 11/16/2024 15:26:47 05/16/20 24 05/19/2024 Lipid 1995 panel - Serum or Plasm a cholesterol. total/choles terol in HDL [mass ratio] in serum or plasma chol/ HDLC ratio Not Available Not Available 11/16/2024 15:26:47 05/16/20 24 05/19/2024 Lipid 1995 panel - Serum or Plasm a cholesterol in LDL/choleste rol in HDL [mass ratio] in serum or plasma LDL/H DL ratio Not Available Not Available 11/16/2024 15:26:47 05/16/20 24 05/19/2024 Lipid 1995 panel - Serum or Plasm a cholesterol non HDL [mass/volume ] in serum or plasma non HDL lena stero l Not Available Not Available 11/16/2024 15:26:47 05/16/20 24 05/19/2024 Free T4 and TSH panel - Serum or Plasm a thyrotropin [units/volum e] in serum or plasma TSH Not Available Not Available 15:26:47 05/16/20 24 05/19/2024 Free T4 and TSH panel - Serum or Plasm a thyroxine (T4) free [mass/volume ] in serum or plasma T4, free Not Available Not Available 11/16/2024 15:26:47 Result Notes None recorded. Problems Name Problem SNOMED Code Status Onset Date Resolution Date Notes Provider Name and Address Organization Details Recorded Time Benign essential hypertension 0245675 Active 2023 Mariama Keenan [facility], [place] - [facility] 4 12:51:48 Body mass index 40+ - severely obese 772266470 Active 2023 Neelima Mistry MA null, [place] - [facility] 4 08:57:50 Prediabetes 323180953 Active 2023 ALESHIA Ervin Attn: Dianna aguilar,[address] [place], [address], [place] - [facility] 4 09:04:37 Malignant tumor of prostate 825232197 Active 2023 ALESHIA Ervin Attn: Dianna aguilar,[address] [place], [address], [place] - [facility] 4 09:04:39 Seasonal allergic rhinitis 063823549 Active 2023 ALESHIA Ervin Attn: Dianna aguilar,[address] [place], [address], [place] - [facility] 4 09:04:42 Long-term drug therapy Active 2023 ALESHIA Ervin Attn: Dianna aguilar,[address] [place], [address], [place] - [facility] 4 09:04:43 Obesity 208890098 Active 2023 ALESHIA Ervin Attn: Dianna aguilar,[address] [place], [address], [place] - [facility] 4 12:29:49 Problem Notes None recorded. Medical Equipment None Reported. Allergies No known drug allergies Medications Name Sig Start Date Stop Date Status Note LastModified by Organization Details LastModified Time prednison e 20 mg tablet PLEASE SEE ATTACHED FOR DETAILED DIRECTIO NS 12/07 completed Not Available Not Available Not Available ciproflox acin 500 mg tablet TAKE 1 TABLET BY MOUTH TWICE A DAY. START THE DAY BEFORE THE PROCEDUR E 06/10 completed Not Available Not Available Not Available amoxicill in 875 mg tablet TAKE 1 TABLET ORAL ROUTE EVERY 12 HOURS FOR 10 DAYS 12/07 completed Not Available Not Available Not Available tamsulosi n 0.4 mg capsule Take 2 capsules every day by oral route for 90 days. active one in night and one in morning Not Available Not Available Not Available benzonata te 100 mg capsule TAKE 2 CAPSULES ORAL ROUTE EVERY 8 HOURS NEEDED 12/07 completed Not Available Not Available Not Available diltiazem CD 120 mg capsule,e xtended release 24 hr Take 1 capsule every day by oral route. 2024 active Not Available Not Available Not Avai lable monteluka st 10 mg tablet Take 1 tablet every day by oral route for 90 days. active Not Available Not Available No t Available albuterol sulfate HFA 90 mcg/actua tion aerosol inhaler INHALE 2 PUFFS INHALATI ON ROUTE 4 TIMES PER DAY active Not Available Not Available No t Available celecoxib 100 mg capsule TAKE 1 CAPSULE BY MOUTH TWICE A DAY 2024 active Not Available Not Available Not Avai lable Diltiazem HCl CR 120 mg capsule, extended release Take 1 capsule every day by oral route. 12/03 completed Not Available Not Available Not Available fluticaso ne propionat e 50 mcg/actua tion nasal spray,isaak pension USE 2 SPRAYS IN EACH NOSTRIL DAILY NEEDED active Not Available Not Available No t Available finasteri de 5 mg tablet Take 1 tablet every day by oral route for 90 days. 2024 active Not Available Not Available Not Avai lable naproxen 500 mg tablet Take 1 tablet twice a day by oral route. 12/03 completed Not Available Not Available Not Available tadalafil 20 mg tablet Take 1 tablet every day by oral route. 12/07 completed Not Available Not Available Not Available sodium,po tassium,m ag sulfates 17.5 gram-3.13 gram-1.6 gram oral soln TAKE DIRECTED 12/03 completed Not Available Not Available Not Available Vitals Date Recorded Respiratory rate Body weight Heart rate Oxygen saturation Oxygen saturation in Arterial blood by Pulse oximetry Body mass index (BMI) Body height Systolic blood pressure Diastolic blood pressure Provider Name and Address Organization Details Last Updated DateTime 4 16 /min 908539. 78 g 69 /min 97 % 97 % 48 kg/m2 180.34 cm 146 mm[Hg] 72 mm[Hg] Neelima Mistry [place] - [facility] 4 08:59:25 Date Recorded Systolic blood pressure Diastolic blood pressure Provider Name and Address Organization Details Last Updated DateTime 12/04/2023 138 mm[Hg] 70 mm[Hg] ALESHIA Ervin Attn: Accounting,[address] [place], [address] 12/04/2023 09:25:04 Date Recorded Body height Body mass index (BMI) Body weight Respiratory rate Oxygen saturation Oxygen saturation in Arterial blood by Pulse oximetry Heart rate Systolic blood pressure Diastolic blood pressure Provider Name and Address Organization Details Last Updated DateTime 4 180.34 cm 46.6 kg/m2 438750. 85 g 18 /min 96 % 96 % 60 /min 140 mm[Hg] 82 mm[Hg] Neelima Mistry MA [facility] 4 08:59:03 Date Recorded Systolic blood pressure Diastolic blood pressure Provider Name and Address Organization Details Last Updated DateTime 06/10/2024 140 mm[Hg] 80 mm[Hg] ALESHIA Ervin Attn: Accounting,[address] [place], [address] 06/10/2024 09:10:47 Date Recorded Body height Body mass index (BMI) Body weight Respiratory rate Oxygen saturation Oxygen saturation in Arterial blood by Pulse oximetry Heart rate Systolic blood pressure Diastolic blood pressure Provider Name and Address Organization Details Last Updated DateTime 5 180.34 cm 46.4 kg/m2 258097. 26 g 18 /min 97 % 97 % 67 /min 142 mm[Hg] 78 mm[Hg] Neelima Mistry MA [facility] 5 17:22:33 Date Recorded Systolic blood pressure Diastolic blood pressure Provider Name and Address Organization Details Last Updated DateTime 12/07/2024 142 mm[Hg] 74 mm[Hg] ALESHIA Ervin Attn: Accounting,[address] [place], [address] 12/07/2024 17:45:56 Social History Question Answer Notes LastModified by Organizat ion Details LastModified Time Tobacco Smoking Status Never Smoker Neelima Mistry MA null, [facility] 12/04/2023 09:03:46 Do You Have An Advance Directive? Yes Information not available 06/10/2024 What Is Your Level Of Alcohol Consumption? Occasional Information not available 06/10/2024 Are You Blind Or Do You Have Difficulty Seeing? No Information not available 12/04/2023 What Is Your Level Of Caffeine Consumption? None Has Stopped Caffine Due To Surgery Information not available 06/10/2024 In The 14 Days Before Symptom Onset, Have You Had Close Contact With A Laboratory-confir med COVID-19 While That Case Was Ill? No Information not available 12/04/2023 In The 14 Days Before Symptom Onset, Have You Had Close Contact With A Person Who Is Under Investigation For COVID-19 While That Person Was Ill? No Information not available 12/04/2023 Have You Been To An Area Known To Be High Risk For COVID-19? No Information not available 12/04/2023 Are You Deaf Or Do You Have Serious Difficulty Hearing? No Information not available 12/04/2023 What Type Of Diet Are You Following? REGULAR Information not available 12/04/2023 Are There Any Guns Present In Your Home? No Information not available 12/04/2023 What Was The Date Of Your Most Recent Tobacco Screening? 12/07/2024 Information not available 12/07/2024 What Is Your Relationship Status? Information not available 06/10/2024 Do You Use Your Seat Belt Or Car Seat Routinely? Yes Information not available 12/04/2023 Do You Have Smoke And Carbon Monoxide Detectors In Your Home? Yes Information not available 12/04/2023 Do You Feel Stressed (tense, Restless, Nervous, Or Anxious, Or Unable To Sleep At Night)? [id number] Information not available 06/10/2024 Do You Use Any Illicit Or Recreational Drugs? No Information not available 12/04/2023 Do You Use Sunscreen Routinely? No Information not available 06/10/2024 Has Tobacco Cessation Counseling Been Provided? Yes Information not available 12/04/2023 On What Date Was Tobacco Cessation Counseling Provided? 12/07/2024 Information not available 12/07/2024 Do You Or Have You Ever Used Any Other Forms Of Tobacco Or Nicotine? No Information not available 12/04/2023 Sex: Male Functional Status Question Answer Note LastModified by Organization D etails LastModified Time Are you able to care for yourself? Yes Information n ot available 12/04/2023 What is your exercise level? None Information not available 06/10/2024 Mental Status None recorded. Family History Relationship Description Onset Age of this Age Resolved Age Notes LastModified by Organization Details LastModified Time Sister Blood coagulation disorder [email or web address] Not available 2024 17:19:36 Medical History No medical history recorded. Immunizations Vaccine Type Date Status Note Provider Nam e and Address Organization Details Recorded Time Influenza, MDCK, quadrivalent, PF 1 completed Neelima Mistry [place], [place] - [facility] 12/07/2024 17:19:46 Influenza, MDCK, quadrivalent, PF 3 completed Neelima M[place] [facility] 12/07/2024 17:19:46 zoster recombinant 3 completed Neelima M[place] [facility] 12/07/2024 17:19:46 MMR 0 completed Neelima M[place] [facility] 12/07/2024 17:19:46 COVID-19, mRNA, LNP-S, PF, 100 mcg/0.5mL dose or 50 mcg/0.25mL dose 1 completed Neelima M[place] [facility] 12/07/2024 17:19:46 COVID-19, mRNA, LNP-S, PF, 30 mcg/0.3 mL dose 1 completed Neelima M[place] [facility] 12/07/2024 17:19:46 COVID-19, mRNA, LNP-S, PF, 30 mcg/0.3 mL dose 1 completed Neelima M[place] [facility] 12/07/2024 17:19:46 Pneumococcal conjugate PCV20, polysaccharide [id number] conjugate, adjuvant, PF 3 completed ELISHA Zaragoza, [place] - [facility] 12/07/2024 17:19:46 COVID-19, mRNA, LNP-S, bivalent, PF, 30 mcg/0.3 mL dose 2 completed ELISHA Zaragoza, [place] [facility] 12/07/2024 17:19:46 COVID-19, mRNA, LNP-S, PF, ars-sucrose, 30 mcg/0.3 mL 3 completed ELISHA Zaragoza, [place] [facility] 12/07/2024 17:19:46 Influenza, split virus, trivalent, PF 5 completed ELISHA [place] [facility] 12/07/2024 17:19:46 Influenza, split virus, trivalent, PF 4 completed ELISHA [place] [facility] 12/07/2024 17:19:46 Influenza, split virus, quadrivalent, PF 0 completed ELISHA [place] [facility] 12/07/2024 17:19:46 Influenza, split virus, quadrivalent, PF 2 completed ELISHA [place] [facility] 12/07/2024 17:19:46 zoster recombinant 4 completed ELISHA [place] [facility] 12/07/2024 17:20:20 RSV, bivalent, protein subunit RSVpreF, diluent reconstituted, 0.5 mL, PF 4 completed Neelima Mistry [place] null, [place] [facility] 12/07/2024 17:20:20 COVID-19, mRNA, LNP-S, PF, ras-sucrose, 30 mcg/0.3 mL 4 completed ELISHA Zaragoza, [place] [facility] 12/07/2024 17:20:20 Tdap 4 completed Neelima Mistry [place], [place] [facility] 12/07/2024 17:20:20 Influenza, MDCK, trivalent, PF 4 completed Neelima Mistry MA [place], [place] - [facility] 12/07/2024 17:20:20 Past Encounters Encounter ID Performer Location Encounter Start Date Encounter Closed Date Diagnosis/Indication Diagnosis SNOMED-CT Code Diagnosis ICD10 Code Diagnosis Note [id number] ALESHIA Ervin [facility] [address] [place] [address] 12/04/2023 08:50:44 12/04/2023 12:58:45 Benign essential hypertension 4142931 I10 stable on diltiazem CD 120mg daily. Long-term drug therapy 554787945 Z79.899 labs are not due until april , before his may appt. Prostate s pecific antigen above reference range 619206902 R97.20 following with Urology routinely, biopsies have been negative and PSA was up around 8 and is coming down some to 7.5 they are following closely. Cholesterol screening 27 5853682 Z13.220 Diabetes m ellitus screening 804845456 Z13.1 Thyroid di sorder screening 304963551 Z13.29 Seasonal a llergic rhinitis 276980986 J30.2 refill on allergy meds. spring and harvest seasons are the worst for him. medication s do help. [id number] ALESHIA Ervin [facility] [place] [address] [place] [address] 06/10/2024 08:41:35 06/10/2024 12:54:21 Benign essential hypertension 6016352 I10 stable on diltiazem CD 120mg daily. Body mass index 40+ - severely obese 402380520 Z68.42 bmi 46.6 Seasonal a llergic rhinitis 342289685 J30.2 stable on allergy meds Long-term drug therapy 695806865 Z79.899 All labs are up-to-date Malignant tumor of prostate 484908331 C61 formally diagnosed with prostate cancer now. Getting ready to start 40 Radiation treatments . Prediabetes 711851668 R7 3.03 6%, stable with diet control Adult [facility] th examination 342315019 Z00.01 Annual wellness exam completed Obesity 315000133 E66.8 discussed healthy diet, exercise, controllin g carbohydra ricco and added sugars in the diet [id number] ALESHIA Ervin [facility] [place] [address] [place] [address] 12/07/2024 16:56:58 12/07/2024 17:58:22 Long-term drug therapy 842147696 Z79.899 Body mass index 40+ - severely obese 337963811 Z68.42 bmi 46.6 Morbid obesity 284955366 E66.01 Benign ess ential hypertension 7338473 I10 stable on diltiazem CD 120mg daily. Malignant tumor of prostate 813903866 C61 formally diagnosed with prostate cancer now. radiation completed early august. PSA recent 0.35, improvemen ts. Prediabetes 738840075 R7 3.03 6%, stable with diet control Seasonal a llergic rhinitis 581327564 J30.2 stable on allergy meds Cholesterol screening 27 8816292 Z13.220 Thyroid di sorder screening 896818970 Z13.29 Family his tory of blood coagulation disorder 9995278396 43351 Z83.2 Dyspnea 340312233 R06.00 Bilateral lower limb edema 991591259 R60.0 Health Concerns Section Related Observation LastModified by Organization Detai ls LastModified Time None Recorded Concern Status LastModified by Organization Details LastModified Time None Recorded Advance Directives Directive Y: Payers Encounter Date Sequence Insurance Name Policy Number Policy Rojas Covered Member ID Rojas Member ID Guarantor Name 12/04/2023 1 [facility] Severiano Evans [id number] Sourav Evans 06/10/2024 1 [facility]: (PPO) [id number] Sourav Evans [id number] Sourav Evans Notes Date Note Type Note Provider Name and Address Organization Details Recorded Time 4 text/html HypertensionReported bypatient.Notes:pt is taking medication and feeling fine. ALESHIA Ervin Attn: Accounting,[address] [facility], [place], [address], [facility] 12/04/2023 09:40:12 4 text/html HypertensionReported bypatient.Notes:pt is taking diltiazem CD 120 mg dailySinusitis/AllergyRep orted bypatient.Notes:Patient takes Flonase and antihistamine and Singulair Patient does have current prostate cancer that is being evaluated managed and treated with Urology. ALESHIA Ervin Attn: Accounting,[address] [facility], [place], [address], [place] - [facility] 06/28/2024 12:30:33
--- OUTSIDE RECORDS SUMMARY | 2024-12-14 16:20 | XMS_ITS | Clinical Summary ---
Author Organization [facility] Address [address] [place] [address] Care Team Providers Care Polysomnograph Tech Name Role Phone Unavailable Primary Care Provider Unavailabl e Social History Tobacco Use Types Packs/Day Years Used Date Smoking Tobacco: Never Assessed Sex and Gender Information Value Date Recorded Sex Assigned at Not on file Legal Sex Male 10:17 PM [employer] Gender Identity Not on file Sexual Orientation Not on file Plan of Treatment Health Maintenance Due Date Last Done Comments Colorectal Cancer Screening Colonoscopy (10 Years) 1964 Annual Physical 02/27/1967 Hepatitis C 02/27/1982 DTaP, Tdap and Td Vaccines ( 1 - Tdap) 02/27/1983 Zoster Vaccines (1 of 2) 02/27/2014 COVID-19 Vaccine ( - 2023-2 5 season) 2024 Influenza Adult (#1) 2024 RSV Immunization or 60+ Years (1 - 1-dose 75+ series) 02/27/2039 Meningococcal B Vaccine Aged Out No l onger eligible based on patient's age to complete this topic Meningococcal Vaccine Aged Out No natalia rhina eligible based on patient's age to complete this topic Pneumococcal Vaccine: Pediat rics (0 to 5 Years) and At-Risk Patients (6 to 64 Years) Aged Out No longer eligible b ased on patient's age to complete this topic RSV Immunizations Under 20 Months Aged Out No longer eligible based on patient's age to complete this topic
--- OUTSIDE RECORDS SUMMARY | 2024-12-14 16:20 | XMS_ITS | Referral Summary ---
Author Organization [facility] [address] Address [address] [place] [address] Care Team Providers Care Chiropractic Assistant Name Role Phone StephanieGuera garland Nancy MONK [...] Date Primary osteoarthritis of left knee 01/05/2019 Social History Tobacco Use Types Packs/Day Years Used Date Smoking Tobacco: Never Smokeless Tobacco: Never Alcohol Use Standard Drinks/Week Comments Yes 0 (1 standard drink = 0.6 oz pur e alcohol) Personal Safety Answer Date Recorded Getting School Help Needed Not on file 12/14 Sex and Gender Information Value Date Recorded Sex Assigned at Not on file Legal Sex Male 1:21 PM [employer] Gender Identity Not on file Sexual Orientation Not on file Last Filed Vital Signs Vital Sign Reading [...] 02/27/2024 2:18 PM CDT Plan of Treatment Not on file Insurance [employer] OOS Care Teams Chiropractic Assistant Relationship Specialty Start Date End Date Guera Davis PA PCP - General Physician [employer] Stick Man 09/02/18
--- OUTSIDE RECORDS SUMMARY | 2024-12-14 16:21 | XMS_ITS | Data Portability ---
Author Organization [facility] [employer], Main Office Address [address] [place] [address] Assessment No assessment recorded. Plan of Treatment Reminders Order Date Submit Date Provider Last Modified By Organization Details Last Modified Time Details Appointments None recorded. Lab CMP, serum or plasma 2022 023 [email or web address] [facility], [address], [place], [address], 3 05:05:44 CBC w/ auto diff 2022 023 [email or web address] [facility], [address], [place], [address], 3 05:05:46 TSH + free T4, serum 2022 023 [email or web address] [facility], [address], [place], [address], 3 05:05:42 urinalysis, complete 2022 023 [email or web address] [facility], [place], [address], 3 05:05:47 lipid panel, serum 2022 023 [email or web address] [facility], [place], [address], 3 05:05:43 HbA1c (hemoglobin A1c), blood 2022 023 [email or web address] [facility], [place], [address], 3 05:05:45 Referral None recorded. Procedures lexiscan cardiolite stress test (PROC) - Approved [id number] 01/08/2023- 02/06/20232022 023 [facility], [address], [address], [place], [address], 14:53:42 colonoscopy procedure (PROC) 2022 023 JORGE Cuco Weeks MD, [address] [facility] [address], [address], [place], [address], 11:17:30 Surgeries None recorded. Imaging None recorded. Medication Orders tadalafil 20 mg tablet 2022 023 [facility]armacy #[id number], [address] [place], [address], 3 09:47:08 Wegovy 0.25 mg/0.5 mL subcutaneou s pen injector [address]/Pharmacy #[id number], [address] [place], [address], 3 14:18:48 Patient TargetsNo targets recorded. Patient InstructionsNo instructions recorded. Reason for Referral None Reported. Results Created Date Observation Date Name Description Value Unit Range Abnormal Flag Note LastModifiedBy Organization Detail LastModifiedTime 08/12/20 21 08/13/2021 CBC (INCL UDES DIFF/ PLT) monocytes 6.5 % normal Not Available [facility] [address] [place], [address], 08/13/2021 12:45:15 08/12/20 21 08/13/2021 CBC (INCL UDES DIFF/ PLT) eosinophils 3.6 % normal Not Available [facility] [address] [place], [address], 08/13/2021 12:45:15 08/12/20 21 08/13/2021 CBC (INCL UDES DIFF/ PLT) basophils 0.9 % normal Not Available [address], [address], 08/13/2021 12:45:15 08/12/20 21 08/13/2021 CBC (INCL UDES DIFF/ PLT) white blood cell count 6.9 thous and/u L 3.8-10 .8 normal Not Available [address], [address], 08/13/2021 12:45:15 08/12/2008/13/2021 CBC (INCL UDES DIFF/ PLT) red blood cell count 4.89 ayde on/uL 4.20-5 .80 normal Not Available [address], [address], 08/13/2021 12:45:15 08/12/20 21 08/13/2021 CBC (INCL UDES DIFF/ PLT) hemoglobin 14.6 g/dL 13.2-1 7.1 normal Not Available [address], [address], 08/13/2021 12:45:15 08/12/20 21 08/13/2021 CBC (INCL UDES DIFF/ PLT) hematocrit 43.1 % 38.5-5 0.0 normal Not Available [address], [address], 08/13/2021 12:45:15 08/12/2008/13/2021 CBC (INCL UDES DIFF/ PLT) MCV 88.1 fL 80.0-1 00.0 normal Not Available [address], [address], 08/13/2021 12:45:15 08/12/20 21 08/13/2021 CBC (INCL UDES DIFF/ PLT) MCH 29.9 pg 27.0-3 3.0 normal Not Available [address], [address], 08/13/2021 12:45:15 08/12/20 21 08/13/2021 CBC (INCL UDES DIFF/ PLT) MCHC 33.9 g/dL 32.0-3 6.0 normal Not Available [address], [address], 08/13/2021 12:45:15 08/12/2008/13/2021 CBC (INCL UDES DIFF/ PLT) RDW 12.2 % 11.0-1 5.0 normal Not Available [address], [address], 08/13/2021 12:45:15 08/12/20 21 08/13/2021 CBC (INCL UDES DIFF/ PLT) platelet count 350 thous and/u L 140-40 0 normal Not Available [address], [address], 08/13/2021 12:45:15 08/12/2008/13/2021 CBC (INCL UDES DIFF/ PLT) MPV 9.9 fL 7.5-12 .5 normal Not Available [address], [address], 08/13/2021 12:45:15 08/12/20 21 08/13/2021 CBC (INCL UDES DIFF/ PLT) absolute neutrophils 4395 cells /uL 1500-7 800 normal Not Available [address], [address], 08/13/2021 12:45:15 08/12/20 21 08/13/2021 CBC (INCL UDES DIFF/ PLT) absolute lymphocytes 1746 cells /uL 850-39 00 normal Not Available [address], [address], 08/13/2021 12:45:15 08/12/20 21 08/13/2021 CBC (INCL UDES DIFF/ PLT) absolute monocytes 449 cells /uL 200-95 0 normal Not Available [address], [address], 08/13/2021 12:45:15 08/12/2008/13/2021 CBC (INCL UDES DIFF/ PLT) absolute eosinophils 248 cells /uL 15-500 normal Not Available [facility] [address] [address] [place], [address], 08/13/2021 12:45:15 08/12/2008/13/2021 CBC (INCL UDES DIFF/ PLT) absolute basophils 62 cells /uL 0-200 normal Not Available [address], [address], 08/13/2021 12:45:15 08/12/2008/13/2021 CBC (INCL UDES DIFF/ PLT) neutrophils 63.7 % normal Not Available [facility] [address], [address], 08/13/2021 12:45:15 08/12/2008/13/2021 CBC (INCL UDES DIFF/ PLT) lymphocytes 25.3 % normal Not Available [address], [address], 08/13/2021 12:45:15 08/12/2008/13/2021 HEMOG LOBIN A1C hemoglobin A1C 5.7 %_of_ total _HGB <5.7 high For someo ne witho ut known diabe ricco, a hemog lobin A1c value betwe en 5.7% and 6.4% is consi stent with predi abete s and shoul d be confi rmed with a follo w-up test. For someo ne with known diabe ricco, a value <7% indic ates that their diabe ricco is well contr olled . A1c targe ts shoul d be indiv idual ized based on durat ion of diabe ricco, age, comor bid condi tions , and other consi derat ions. This assay resul t is consi stent with an incre ased risk of diabe ricco. Curre ntly, no conse nsus exist s regar ding use of hemog lobin A1c for diagn osis of diabe ricco for child yamilka. Not Available [address] [address] [place], [address], 08/13/2021 12:45:14 08/12/20 21 08/13/2021 COMPR EHENS JOVI METAB OLIC PANEL glucose 104 mg/dL 65-99 high Fasti ng refer ence inter angelina For someo ne witho ut known diabe ricco, a gluco se value betwe en 100 and 125 mg/dL is consi stent with predi abete s and shoul d be confi rmed with a follo w-up test. Not Available [address] [address] [place], [address], 08/13/2021 12:45:14 08/12/20 21 08/13/2021 COMPR EHENS JOVI METAB OLIC PANEL urea nitrogen (BUN) 14 mg/dL 7-25 normal Not Available [address] [address] [place], [address], 08/13/2021 12:45:14 08/12/20 21 08/13/2021 COMPR EHENS JOVI METAB OLIC PANEL potassium 4.4 mmol/ L 3.5-5. 3 normal Not Available [facility] [address] [address] [place], [address], 08/13/2021 12:45:14 08/12/2008/13/2021 COMPR EHENS JOVI METAB OLIC PANEL creatinine 0.80 mg/dL 0.70-1 .33 normal For patie nts >49 years of age, the refer ence limit for Creat inine is appro ximat brenden 13% highe r for peopl e ident ified as Afric an-Am nelson n. Not Available [facility] [address] [address] [place], [address], 08/13/2021 12:45:14 08/12/20 21 08/13/2021 COMPR EHENS JOVI METAB OLIC PANEL eGFR non-afr. south african 99 mL/mi n/1.7 3m2 > or = 60 normal Not Available [address] [address] [place], [address], 08/13/2021 12:45:14 08/12/20 21 08/13/2021 COMPR EHENS JOVI METAB OLIC PANEL eGFR 115 mL/mi n/1.7 3m2 > or = 60 normal Not Available [address] [address] [place], [address], 08/13/2021 12:45:14 08/12/20 21 08/13/2021 COMPR EHENS JOVI METAB OLIC PANEL BUN/creatini ne ratio not applic able (calc ) 6-22 Not Available [address] [address] [place], [address], 08/13/2021 12:45:14 08/12/20 21 08/13/2021 COMPR EHENS JOVI METAB OLIC PANEL sodium 138 mmol/ L 135-14 6 normal Not Available [address] [address] [place], [address], 08/13/2021 12:45:14 08/12/20 21 08/13/2021 COMPR EHENS JOVI METAB OLIC PANEL chloride 103 mmol/ L 98-110 normal Not Available [address] [address] [place], [address], 08/13/2021 12:45:14 08/12/20 21 08/13/2021 COMPR EHENS JOVI METAB OLIC PANEL carbon dioxide 27 mmol/ L 20-32 normal Not Available [address] [address] [place], [address], 08/13/2021 12:45:14 08/12/20 21 08/13/2021 COMPR EHENS JOVI METAB OLIC PANEL calcium 9.1 mg/dL 8.6-10 .3 normal Not Available [address], [address], 08/13/2021 12:45:14 08/12/20 21 08/13/2021 COMPR EHENS JOVI METAB OLIC PANEL protein, total 6.9 g/dL 6.1-8. 1 normal Not Available [address], [address], 08/13/2021 12:45:14 08/12/2008/13/2021 COMPR EHENS JOVI METAB OLIC PANEL albumin 4.4 g/dL 3.6-5. 1 normal Not Available [address], [address], 08/13/2021 12:45:14 08/12/20 21 08/13/2021 COMPR EHENS JOVI METAB OLIC PANEL globulin 2.5 g/dL_ (calc ) 1.9-3. 7 normal Not Available [address], [address], 08/13/2021 12:45:14 08/12/20 21 08/13/2021 COMPR EHENS JOVI METAB OLIC PANEL albumin/glob ulin ratio 1.8 (calc ) 1.0-2. 5 normal Not Available [address], [address], 08/13/2021 12:45:14 08/12/20 21 08/13/2021 COMPR EHENS JOVI METAB OLIC PANEL bilirubin, total 0.6 mg/dL 0.2-1. 2 normal Not Available [address], [address], 08/13/2021 12:45:14 08/12/20 21 08/13/2021 COMPR EHENS JOVI METAB OLIC PANEL alkaline phosphatase 69 U/L 35-144 normal Not Available [facility] [address] [place], [address], 08/13/2021 12:45:14 08/12/20 21 08/13/2021 COMPR EHENS JOVI METAB OLIC PANEL AST 24 U/L 10-35 normal Not Available [address] [address] [place], [address], 08/13/2021 12:45:14 08/12/20 21 08/13/2021 COMPR EHENS JOVI METAB OLIC PANEL ALT 26 U/L 9-46 normal Not Available [address] [address] [place], [address], 08/13/2021 12:45:14 08/12/20 21 08/13/2021 LIPID PANEL WITH RATIO S LDL-choleste rol 109 mg/dL _(girma c) high Refer ence range : <100 Cynthia able range <100 mg/dL for prima ry preve ntion ; <70 mg/dL for patie nts with CHD or diabe tic patie nts with > or = 2 CHD risk facto rs. LDL-C is now calcu lated using the Lily n-Hop kins calcu latnemesio n, which is a valid ated novel metho d provi ding rosalba r accur acy than the Fried gerry equat ion in the estim ation of LDL-C . Lily gordon SS et al. JIMENA. 2013; 310(1 9): 2061- 2068 (http ://ed ucati on.Qu Elida Zaplees. com/f aq/FA Q164) Not Available [facility] [address] [place], [address], 08/13/2021 12:45:13 08/12/20 21 08/13/2021 LIPID PANEL WITH RATIO S cholesterol, total 172 mg/dL <200 normal Not Available [address] [address] [place], [address], 08/13/2021 12:45:13 08/12/20 21 08/13/2021 LIPID PANEL WITH RATIO S HDL cholesterol 48 mg/dL > or = 40 normal Not Available [address] [address] [place], [address], 08/13/2021 12:45:13 08/12/20 21 08/13/2021 LIPID PANEL WITH RATIO S triglyceride s 68 mg/dL <150 normal Not Available [address] [address] [place], [address], 08/13/2021 12:45:13 08/12/20 21 08/13/2021 LIPID PANEL WITH RATIO S chol/HDLC ratio 3.6 (calc ) <5.0 normal Not Available [address] [address] [place], [address], 08/13/2021 12:45:13 08/12/20 21 08/13/2021 LIPID PANEL WITH RATIO S LDL/HDL ratio 2.3 (calc ) Below Noble ge Risk: <2.28 Noble ge Risk: 2.29- 4.90 Moder ate Risk: 4.91- 7.12 High Risk: >7.13 Not Available [address] [address] [place], [address], 08/13/2021 12:45:13 08/12/20 21 08/13/2021 LIPID PANEL WITH RATIO S non HDL cholesterol 124 mg/dL _(girma c) <130 normal For patie nts with diabe ricco plus 1 major ASCVD risk facto r, treat ing to a non-H DL-C goal of <100 mg/dL (LDL- C of <70 mg/dL ) is mami klein optio n. Not Available [address] [address] [place], [address], 08/13/2021 12:45:13 08/04/20 22 08/06/2022 CBC (INCL UDES DIFF/ PLT) white blood cell count 6.6 thous and/u L 3.8-10 .8 normal Not Available [address], [address], 08/06/2022 12:56:17 08/04/20 22 08/06/2022 CBC (INCL UDES DIFF/ PLT) red blood cell count 4.77 ayde on/uL 4.20-5 .80 normal Not Available [address], [address], 08/06/2022 12:56:17 08/04/20 22 08/06/2022 CBC (INCL UDES DIFF/ PLT) hemoglobin 14.3 g/dL 13.2-1 7.1 normal Not Available [address], [address], 08/06/2022 12:56:17 08/04/20 22 08/06/2022 CBC (INCL UDES DIFF/ PLT) hematocrit 42.3 % 38.5-5 0.0 normal Not Available [address], [address], 08/06/2022 12:56:17 08/04/20 22 08/06/2022 CBC (INCL UDES DIFF/ PLT) MCV 88.7 fL 80.0-1 00.0 normal Not Available [address], [address], 08/06/2022 12:56:17 08/04/20 22 08/06/2022 CBC (INCL UDES DIFF/ PLT) MCH 30.0 pg 27.0-3 3.0 normal Not Available [address], [address], 08/06/2022 12:56:17 08/04/20 22 08/06/2022 CBC (INCL UDES DIFF/ PLT) MCHC 33.8 g/dL 32.0-3 6.0 normal Not Available [address], [address], 08/06/2022 12:56:17 08/04/20 22 08/06/2022 CBC (INCL UDES DIFF/ PLT) RDW 12.0 % 11.0-1 5.0 normal Not Available [address], [address], 08/06/2022 12:56:17 08/04/20 22 08/06/2022 CBC (INCL UDES DIFF/ PLT) platelet count 321 thous and/u L 140-40 0 normal Not Available [address], [address], 08/06/2022 12:56:17 08/04/20 22 08/06/2022 CBC (INCL UDES DIFF/ PLT) MPV 10.3 fL 7.5-12 .5 normal Not Available [address], [address], 08/06/2022 12:56:17 08/04/20 22 08/06/2022 CBC (INCL UDES DIFF/ PLT) absolute neutrophils 4072 cells /uL 1500-7 800 normal Not Available [address], [address], 08/06/2022 12:56:17 08/04/20 22 08/06/2022 CBC (INCL UDES DIFF/ PLT) absolute lymphocytes 1762 cells /uL 850-39 00 normal Not Available [address], [address], 08/06/2022 12:56:17 08/04/20 22 08/06/2022 CBC (INCL UDES DIFF/ PLT) absolute monocytes 515 cells /uL 200-95 0 normal Not Available [address], [address], 08/06/2022 12:56:17 08/04/20 22 08/06/2022 CBC (INCL UDES DIFF/ PLT) absolute eosinophils 211 cells /uL 15-500 normal Not Available [address], [address], 08/06/2022 12:56:17 08/04/20 22 08/06/2022 CBC (INCL UDES DIFF/ PLT) absolute basophils 40 cells /uL 0-200 normal Not Available [facility] [address], [address], 08/06/2022 12:56:17 08/04/20 22 08/06/2022 CBC (INCL UDES DIFF/ PLT) neutrophils 61.7 % normal Not Available [address], [address], 08/06/2022 12:56:17 08/04/20 22 08/06/2022 CBC (INCL UDES DIFF/ PLT) lymphocytes 26.7 % normal Not Available [address], [address], 08/06/2022 12:56:17 08/04/20 22 08/06/2022 CBC (INCL UDES DIFF/ PLT) monocytes 7.8 % normal Not Available [address], [address], 08/06/2022 12:56:17 08/04/20 22 08/06/2022 CBC (INCL UDES DIFF/ PLT) eosinophils 3.2 % normal Not Available [address], [address], 08/06/2022 12:56:17 08/04/20 22 08/06/2022 CBC (INCL UDES DIFF/ PLT) basophils 0.6 % normal Not Available [address], [address], 08/06/2022 12:56:17 08/04/20 22 08/06/2022 HEMOG LOBIN A1C hemoglobin A1C 5.7 %_of_ total _HGB <5.7 high For someo ne witho ut known diabe ricco, a hemog lobin A1c value betwe en 5.7% and 6.4% is consi stent with predi abete s and shoul d be confi rmed with a follo w-up test. For someo ne with known diabe ricco, a value <7% indic ates that their diabe ricco is well contr olled . A1c targe ts shoul d be indiv idual ized based on durat ion of diabe ricco, age, comor bid condi tions , and other consi derat ions. This assay resul t is consi stent with an incre ased risk of diabe ricco. Curre ntly, no conse nsus exist s regar ding use of hemog lobin A1c for diagn osis of diabe ricco for child yamilka. Not Available [facility] [address] [place], [address], 08/06/2022 12:56:16 08/04/20 22 08/06/2022 COMPR EHENS JOVI METAB OLIC PANEL eGFR 104 mL/mi n/1.7 3m2 > or = 60 normal The eGFR is based on the CKD-E PI 2020 equat ion. To calcu late the new eGFR from a previ ous Creat inine or Cysta tin C resul t, go to https ://eneida w.kid venancio.o amanda/alem duvall s/ kdoqi /gfr% 5Fcal culat or Not Available [facility] [address] [place], [address], 08/06/2022 12:56:16 08/04/20 22 08/06/2022 COMPR EHENS JOVI METAB OLIC PANEL glucose 93 mg/dL 65-99 normal Fasti ng refer ence inter angelina Not Available [facility] [address] [place], [address], 08/06/2022 12:56:16 08/04/20 22 08/06/2022 COMPR EHENS JOVI METAB OLIC PANEL urea nitrogen (BUN) 17 mg/dL 7-25 normal Not Available [address] [address] [place], [address], 08/06/2022 12:56:16 08/04/20 22 08/06/2022 COMPR EHENS JOVI METAB OLIC PANEL creatinine 0.77 mg/dL 0.70-1 .30 normal Not Available [address], [address], 08/06/2022 12:56:16 08/04/20 22 08/06/2022 COMPR EHENS JOVI METAB OLIC PANEL BUN/creatini ne ratio not applic able (calc ) 6-22 Not Available [address], [address], 08/06/2022 12:56:16 08/04/20 22 08/06/2022 COMPR EHENS JOVI METAB OLIC PANEL sodium 138 mmol/ L 135-14 6 normal Not Available [address], [address], 08/06/2022 12:56:16 08/04/20 22 08/06/2022 COMPR EHENS JOVI METAB OLIC PANEL potassium 4.7 mmol/ L 3.5-5. 3 normal Not Available [address], [address], 08/06/2022 12:56:16 08/04/20 22 08/06/2022 COMPR EHENS JOVI METAB OLIC PANEL chloride 104 mmol/ L 98-110 normal Not Available [address], [address], 08/06/2022 12:56:16 08/04/20 22 08/06/2022 COMPR EHENS JOVI METAB OLIC PANEL carbon dioxide 27 mmol/ L 20-32 normal Not Available [address], [address], 08/06/2022 12:56:16 08/04/20 22 08/06/2022 COMPR EHENS JOVI METAB OLIC PANEL calcium 9.2 mg/dL 8.6-10 .3 normal Not Available [address], [address], 08/06/2022 12:56:16 08/04/20 22 08/06/2022 COMPR EHENS JOVI METAB OLIC PANEL protein, total 6.8 g/dL 6.1-8. 1 normal Not Available [address], [address], 08/06/2022 12:56:16 08/04/20 22 08/06/2022 COMPR EHENS JOVI METAB OLIC PANEL albumin 4.1 g/dL 3.6-5. 1 normal Not Available [address], [address], 08/06/2022 12:56:16 08/04/20 22 08/06/2022 COMPR EHENS JOVI METAB OLIC PANEL globulin 2.7 g/dL_ (calc ) 1.9-3. 7 normal Not Available [address], [address], 08/06/2022 12:56:16 08/04/20 22 08/06/2022 COMPR EHENS JOVI METAB OLIC PANEL albumin/glob ulin ratio 1.5 (calc ) 1.0-2. 5 normal Not Available [address], [address], 08/06/2022 12:56:16 08/04/20 22 08/06/2022 COMPR EHENS JOVI METAB OLIC PANEL bilirubin, total 0.6 mg/dL 0.2-1. 2 normal Not Available [address], [address], 08/06/2022 12:56:16 08/04/20 22 08/06/2022 COMPR EHENS JOVI METAB OLIC PANEL alkaline phosphatase 73 U/L 35-144 normal Not Available [facility] [address] [place], [address], 08/06/2022 12:56:16 08/04/20 22 08/06/2022 COMPR EHENS JOVI METAB OLIC PANEL AST 18 U/L 10-35 normal Not Available [facility] [address] [place], [address], 08/06/2022 12:56:16 08/04/20 22 08/06/2022 COMPR EHENS JOVI METAB OLIC PANEL ALT 22 U/L 9-46 normal Not Available [facility] [address] [address] [place], [address], 08/06/2022 12:56:16 08/04/20 22 08/06/2022 LIPID PANEL WITH RATIO S LDL-choleste rol 115 mg/dL _(girma c) high Refer ence range : <100 Cynthia able range <100 mg/dL for prima ry preve ntion ; <70 mg/dL for patie nts with CHD or diabe tic patie nts with > or = 2 CHD risk facto rs. LDL-C is now calcu lated using the Lily n-Hop kins calcu silvina n, which is a valid ated novel metho d maxi navarrete r accur acy than the Fried gerry equat ion in the estim ation of LDL-C . Lily gordon SS et al. JIMENA. 2013; 310(1 9): 2061- 2068 (http ://ed ucati on.Qu Elida george UNYQs. com/f aq/FA Q164) Not Available [facility] [address] [place], [address], 08/06/2022 12:56:15 08/04/20 22 08/06/2022 LIPID PANEL WITH RATIO S cholesterol, total 181 mg/dL <200 normal Not Available [facility] [address] [place], [address], 08/06/2022 12:56:15 08/04/20 22 08/06/2022 LIPID PANEL WITH RATIO S HDL cholesterol 50 mg/dL > or = 40 normal Not Available [address], [address], 08/06/2022 12:56:15 08/04/20 22 08/06/2022 LIPID PANEL WITH RATIO S triglyceride s 70 mg/dL <150 normal Not Available [address], [address], 08/06/2022 12:56:15 08/04/20 22 08/06/2022 LIPID PANEL WITH RATIO S chol/HDLC ratio 3.6 (calc ) <5.0 normal Not Available [address], [address], 08/06/2022 12:56:15 08/04/20 22 08/06/2022 LIPID PANEL WITH RATIO S LDL/HDL ratio 2.3 (calc ) Below Noble ge Risk: <2.28 Noble ge Risk: 2.29- 4.90 Moder ate Risk: 4.91- 7.12 High Risk: >7.13 Not Available [address], [address], 08/06/2022 12:56:15 08/04/20 22 08/06/2022 LIPID PANEL WITH RATIO S non HDL cholesterol 131 mg/dL _(girma c) <130 high For patie nts with diabe ricco plus 1 major ASCVD risk facto r, treat ing to a non-H DL-C goal of <100 mg/dL (LDL- C of <70 mg/dL ) is consi ligia horton pemaurice c optio n. Not Available [address], [address], 08/06/2022 12:56:15 08/04/20 22 08/06/2022 TSH+F REE T4 TSH 1.84 mIU/L 0.40-4 .50 normal Not Available [address] [place], [address], 08/06/2022 12:56:14 08/04/2008/06/2022 TSH+F REE T4 T4, free 1.0 NG/dL 0.8-1. 8 normal Not Available [address], [address], 08/06/2022 12:56:14 06/12/2006/14/2023 TSH+F REE T4 TSH 2.20 mIU/L 0.40-4 .50 normal Not Available [address], [address], 06/14/2023 05:05:42 06/12/20 23 06/14/2023 TSH+F REE T4 T4, free 1.0 NG/dL 0.8-1. 8 normal Not Available [address], [address], 06/14/2023 05:05:42 06/12/20 23 06/14/2023 LIPID PANEL WITH RATIO S cholesterol, total 198 mg/dL <200 normal Not Available [address], [address], 06/14/2023 05:05:43 06/12/20 23 06/14/2023 LIPID PANEL WITH RATIO S HDL cholesterol 55 mg/dL > or = 40 normal Not Available [address], [address], 06/14/2023 05:05:43 06/12/20 23 06/14/2023 LIPID PANEL WITH RATIO S triglyceride s 114 mg/dL <150 normal Not Available [address], [address], 06/14/2023 05:05:43 06/12/20 23 06/14/2023 LIPID PANEL WITH RATIO S LDL-choleste rol 121 mg/dL _(girma c) high Refer ence range : <100 Cynthia able range <100 mg/dL for prima ry preve ntion ; <70 mg/dL for patie nts with CHD or diabe tic patie nts with > or = 2 CHD risk facto rs. LDL-C is now calcu lated using the [facility] calcu silvina gordon, which is a valid ated novel metho d provi ding rosalba r accur acy than the Fried gerry equat ion in the estim ation of LDL-C . Lily gordon SS et al. JIMENA. 2013; 310(1 9): 2061- 2068 (http ://ed ucati on.Qu estDi [employer]. com/f aq/FA Q164) Not Available [facility] [address], [address], 06/14/2023 05:05:43 06/12/20 23 06/14/2023 LIPID PANEL WITH RATIO S chol/HDLC ratio 3.6 (calc ) <5.0 normal Not Available [facility] [address], [address], 06/14/2023 05:05:43 06/12/20 23 06/14/2023 LIPID PANEL WITH RATIO S LDL/HDL ratio 2.2 (calc ) Below Noble ge Risk: <2.28 Noble ge Risk: 2.29- 4.90 Moder ate Risk: 4.91- 7.12 High Risk: >7.13 Not Available [facility] [address], [address], 06/14/2023 05:05:43 06/12/20 23 06/14/2023 LIPID PANEL WITH RATIO S non HDL cholesterol 143 mg/dL _(girma c) <130 high For patie nts with diabe ricco plus 1 major ASCVD risk facto r, treat ing to a non-H DL-C goal of <100 mg/dL (LDL- C of <70 mg/dL ) is consi rond a sol pemaurice c optio n. Not Available [facility] [address], [address], 06/14/2023 05:05:43 06/12/20 23 06/14/2023 COMPR EHENS JOVI METAB OLIC PANEL glucose 94 mg/dL 65-99 normal Fasti ng refer ence inter angelina Not Available [address], [address], 06/14/2023 05:05:44 06/12/20 23 06/14/2023 COMPR EHENS JOVI METAB OLIC PANEL urea nitrogen (BUN) 14 mg/dL 7-25 normal Not Available [address], [address], 06/14/2023 05:05:44 06/12/20 23 06/14/2023 COMPR EHENS JOVI METAB OLIC PANEL creatinine 0.77 mg/dL 0.70-1 .30 normal Not Available [address], [address], 06/14/2023 05:05:44 06/12/20 23 06/14/2023 COMPR EHENS JOVI METAB OLIC PANEL eGFR 103 mL/mi n/1.7 3m2 > or = 60 normal Not Available [address], [address], 06/14/2023 05:05:44 06/12/20 23 06/14/2023 COMPR EHENS JOVI METAB OLIC PANEL BUN/creatini ne ratio SEE NOTE: (calc ) 6-22 Not Repor luis enrique: BUN and Creat inine are withi n refer ence range . Not Available 31 [address], [address], 06/14/2023 05:05:44 06/12/20 23 06/14/2023 COMPR EHENS JOVI METAB OLIC PANEL sodium 138 mmol/ L 135-14 6 normal Not Available [address], [address], 06/14/2023 05:05:44 09/13/20 23 06/14/2023 COMPR EHENS JOVI METAB OLIC PANEL potassium 4.3 mmol/ L 3.5-5. 3 normal Not Available [address], [address], 06/14/2023 05:05:44 06/12/20 23 06/14/2023 COMPR EHENS JOVI METAB OLIC PANEL chloride 101 mmol/ L 98-110 normal Not Available [address], [address], 06/14/2023 05:05:44 06/12/20 23 06/14/2023 COMPR EHENS JOVI METAB OLIC PANEL carbon dioxide 29 mmol/ L 20-32 normal Not Available [address], [address], 06/14/2023 05:05:44 06/12/20 23 06/14/2023 COMPR EHENS JOVI METAB OLIC PANEL calcium 9.2 mg/dL 8.6-10 .3 normal Not Available [address], [address], 06/14/2023 05:05:44 06/12/20 23 06/14/2023 COMPR EHENS JOVI METAB OLIC PANEL protein, total 7.0 g/dL 6.1-8. 1 normal Not Available [address], [address], 06/14/2023 05:05:44 06/12/20 23 06/14/2023 COMPR EHENS JOVI METAB OLIC PANEL albumin 4.4 g/dL 3.6-5. 1 normal Not Available [address], [address], 06/14/2023 05:05:44 06/12/20 23 06/14/2023 COMPR EHENS JOVI METAB OLIC PANEL globulin 2.6 g/dL_ (calc ) 1.9-3. 7 normal Not Available [address], [address], 06/14/2023 05:05:44 06/12/2006/14/2023 COMPR EHENS JOVI METAB OLIC PANEL albumin/glob ulin ratio 1.7 (calc ) 1.0-2. 5 normal Not Available [address], [address], 06/14/2023 05:05:44 06/12/2006/14/2023 COMPR EHENS JOVI METAB OLIC PANEL bilirubin, total 0.5 mg/dL 0.2-1. 2 normal Not Available [address], [address], 06/14/2023 05:05:44 06/12/2006/14/2023 COMPR EHENS JOVI METAB OLIC PANEL alkaline phosphatase 82 U/L 35-144 normal Not Available [address], [address], 06/14/2023 05:05:44 06/12/2006/14/2023 COMPR EHENS JOVI METAB OLIC PANEL AST 16 U/L 10-35 normal Not Available [address], [address], 06/14/2023 05:05:44 06/12/2006/14/2023 COMPR EHENS JOVI METAB OLIC PANEL ALT 20 U/L 9-46 normal Not Available [address], [address], 06/14/2023 05:05:44 06/12/2006/14/2023 HEMOG LOBIN A1C hemoglobin A1C 5.7 %_of_ total _HGB <5.7 high For someo ne witho ut known diabe ricco, a hemog lobin A1c value betwe en 5.7% and 6.4% is consi stent with predi abete s and shoul d be confi rmed with a follo w-up test. For someo ne with known diabe ricco, a value <7% indic ates that their diabe ricco is well contr olled . A1c targe ts shoul d be indiv idual ized based on durat ion of diabe ricco, age, comor bid condi tions , and other consi derat ions. This assay resul t is consi stent with an incre ased risk of diabe ricco. Curre ntly, no conse nsus exist s regar ding use of hemog lobin A1c for diagn osis of diabe ricco for child yamilka. Not Available [facility] [address] [place], [address], 06/14/2023 05:05:45 06/12/2006/14/2023 CBC (INCL UDES DIFF/ PLT) white blood cell count 7.2 thous and/u L 3.8-10 .8 normal Not Available [facility] [address] [address] [place], [address], 06/14/2023 05:05:46 06/12/2006/14/2023 CBC (INCL UDES DIFF/ PLT) red blood cell count 4.79 ayde on/uL 4.20-5 .80 normal Not Available [facility] [address] [address] [place], [address], 06/14/2023 05:05:46 06/12/2006/14/2023 CBC (INCL UDES DIFF/ PLT) hemoglobin 14.7 g/dL 13.2-1 7.1 normal Not Available [facility] [address] [address] [place], [address], 06/14/2023 05:05:46 06/12/2006/14/2023 CBC (INCL UDES DIFF/ PLT) hematocrit 43.7 % 38.5-5 0.0 normal Not Available [facility] [address] [address] [place], [address], 06/14/2023 05:05:46 06/12/20 23 06/14/2023 CBC (INCL UDES DIFF/ PLT) MCV 91.2 fL 80.0-1 00.0 normal Not Available [address], [address], 06/14/2023 05:05:46 06/12/20 23 06/14/2023 CBC (INCL UDES DIFF/ PLT) MCH 30.7 pg 27.0-3 3.0 normal Not Available [address], [address], 06/14/2023 05:05:46 06/12/20 23 06/14/2023 CBC (INCL UDES DIFF/ PLT) MCHC 33.6 g/dL 32.0-3 6.0 normal Not Available [address], [address], 06/14/2023 05:05:46 06/12/20 23 06/14/2023 CBC (INCL UDES DIFF/ PLT) RDW 12.6 % 11.0-1 5.0 normal Not Available [address], [address], 06/14/2023 05:05:46 06/12/20 23 06/14/2023 CBC (INCL UDES DIFF/ PLT) platelet count 301 thous and/u L 140-40 0 normal Not Available [address], [address], 06/14/2023 05:05:46 06/12/20 23 06/14/2023 CBC (INCL UDES DIFF/ PLT) MPV 9.6 fL 7.5-12 .5 normal Not Available [address], [address], 06/14/2023 05:05:46 06/12/20 23 06/14/2023 CBC (INCL UDES DIFF/ PLT) absolute neutrophils 4759 cells /uL 1500-7 800 normal Not Available [address], [address], 06/14/2023 05:05:46 06/12/20 23 06/14/2023 CBC (INCL UDES DIFF/ PLT) absolute lymphocytes 1620 cells /uL 850-39 00 normal Not Available [address], [address], 06/14/2023 05:05:46 06/12/20 23 06/14/2023 CBC (INCL UDES DIFF/ PLT) absolute monocytes 576 cells /uL 200-95 0 normal Not Available [address], [address], 06/14/2023 05:05:46 06/12/20 23 06/14/2023 CBC (INCL UDES DIFF/ PLT) absolute eosinophils 202 cells /uL 15-500 normal Not Available [address], [address], 06/14/2023 05:05:46 06/12/20 23 06/14/2023 CBC (INCL UDES DIFF/ PLT) absolute basophils 43 cells /uL 0-200 normal Not Available [address], [address], 06/14/2023 05:05:46 06/12/20 23 06/14/2023 CBC (INCL UDES DIFF/ PLT) neutrophils 66.1 % normal Not Available [address], [address], 06/14/2023 05:05:46 06/12/2006/14/2023 CBC (INCL UDES DIFF/ PLT) lymphocytes 22.5 % normal Not Available [address], [address], 06/14/2023 05:05:46 06/12/20 23 06/14/2023 CBC (INCL UDES DIFF/ PLT) monocytes 8.0 % normal Not Available [facility] [address], [address], 06/14/2023 05:05:46 06/12/20 23 06/14/2023 CBC (INCL UDES DIFF/ PLT) eosinophils 2.8 % normal Not Available [facility] [address], [address], 06/14/2023 05:05:46 06/12/2006/14/2023 CBC (INCL UDES DIFF/ PLT) basophils 0.6 % normal Not Available [facility] [address], [address], 06/14/2023 05:05:46 06/12/2006/14/2023 URINA LYSIS , COMPL ETE color YELLOW yellow normal Not Available [facility] [address], [address], 06/14/2023 05:05:47 06/12/2006/14/2023 URINA LYSIS , COMPL ETE appearance CLEAR clear normal Not Available [address], [address], 06/14/2023 05:05:47 06/12/2006/14/2023 URINA LYSIS , COMPL ETE specific gravity 1.013 1.001- 1.035 normal Not Available [facility] [address], [address], 06/14/2023 05:05:47 06/12/2006/14/2023 URINA LYSIS , COMPL ETE pH 7.0 5.0-8. 0 normal Not Available [address], [address], 06/14/2023 05:05:47 06/12/2006/14/2023 URINA LYSIS , COMPL ETE glucose NEGATI VE negati ve normal Not Available [facility] [address], [place], [address], 06/14/2023 05:05:47 06/12/20 23 06/14/2023 URINA LYSIS , COMPL ETE bilirubin NEGATI VE negati ve normal Not Available [facility] [address] [address] [place], [address], 06/14/2023 05:05:47 06/12/2006/14/2023 URINA LYSIS , COMPL ETE ketones NEGATI VE negati ve normal Not Available [facility] [address] [address] [place], [address], 06/14/2023 05:05:47 06/12/2006/14/2023 URINA LYSIS , COMPL ETE occult blood NEGATI VE negati ve normal Not Available [address], [address], 06/14/2023 05:05:47 06/12/20 23 06/14/2023 URINA LYSIS , COMPL ETE protein NEGATI VE negati ve normal Not Available [address], [address], 06/14/2023 05:05:47 06/12/2006/14/2023 URINA LYSIS , COMPL ETE nitrite NEGATI VE negati ve normal Not Available [address], [address], 06/14/2023 05:05:47 06/12/2006/14/2023 URINA LYSIS , COMPL ETE leukocyte esterase NEGATI VE negati ve normal Not Available [address], [address], 06/14/2023 05:05:47 06/12/2006/14/2023 URINA LYSIS , COMPL ETE WBC NONE SEEN /hpf < or = 5 normal Not Available [address], [address], 06/14/2023 05:05:47 06/12/20 23 06/14/2023 URINA LYSIS , COMPL ETE RBC NONE SEEN /hpf < or = 2 normal Not Available [address] [address] [place], [address], 06/14/2023 05:05:47 06/12/20 23 06/14/2023 URINA LYSIS , COMPL ETE squamous epithelial cells NONE SEEN /hpf < or = 5 normal Not Available [facility] [address] [address] [place], [address], 06/14/2023 05:05:47 06/12/2006/14/2023 URINA LYSIS , COMPL ETE bacteria NONE SEEN /hpf none seen normal Not Available [address], [address], 06/14/2023 05:05:47 06/12/20 23 06/14/2023 URINA LYSIS , COMPL ETE hyaline cast NONE SEEN /lpf none seen normal Not Available [address], [address], 06/14/2023 05:05:47 06/12/2006/14/2023 EXTRA SPECI MEN extra tube received An extra speci men was recei luis daniel with no test reque sted. [facility] case addit ional testi ng is neede allie Major e call [facility] [place] for sina levine . Not Available [facility] [address], [address], 06/14/2023 05:05:48 06/12/2006/14/2023 EXTRA SPECI MEN specimen type received Urine Not Available [address], [address], 06/14/2023 05:05:48 06/12/20 06/14/2023 CULTU RE, URINE , ROUTI NE culture, urine, routine CULTU RE, URINE , ROUTI NE Micro Numbe r: [id number] Test Statu s: Final Speci men Sourc e: Urine Speci men Quali ty: Adequ ate Resul t: Less than 10,00 0 CFU/m L of singl e Gram posit jovi organ ism isola luis enrique. No furth er testi ng will be perfo rmed. If clini lisa indic ated, recol lecti on using a metho d to minim ize conta minat ion, with promp t trans isacc to Urine Cultu re Trans port Tube, is recom babs d. We recei luis daniel a prese rved urine cultu re trans port tube with eithe r no order indic ated or a sourc e which is inapp ropri ate for the test reque sted. A urine cultu re was perfo rmed. If this is not what you inten ded to order , pleas e conta ct your local clien t servi ce repre senta tive immed iatel y so that we can adjus t our ranjan ng appro priat brenden. You may also inqui re about alter nativ e or addit ional testi ng. Not Available [address] [address] [place], [address], 06/14/2023 05:05:48 05/16/20 24 05/19/2024 TSH+F REE T4 TSH 1.48 mIU/L 0.40-4 .50 normal Not Available [facility] [address] [address] [place], [address], 05/19/2024 03:49:49 05/16/2005/19/2024 TSH+F REE T4 T4, free 1.2 NG/dL 0.8-1. 8 normal Not Available [facility] [address] [address] [place], [address], 05/19/2024 03:49:49 05/16/20 24 05/19/2024 LIPID PANEL WITH RATIO S cholesterol, total 177 mg/dL <200 normal Not Available [facility] [address] [address] [place], [address], 05/19/2024 03:49:49 05/16/20 24 05/19/2024 LIPID PANEL WITH RATIO S HDL cholesterol 51 mg/dL > or = 40 normal Not Available [facility] [address] [address] [place], [address], 05/19/2024 03:49:49 05/16/20 24 05/19/2024 LIPID PANEL WITH RATIO S triglyceride s 60 mg/dL <150 normal Not Available [facility] [address] [address] [place], [address], 05/19/2024 03:49:49 05/16/20 24 05/19/2024 LIPID PANEL WITH RATIO S LDL-choleste rol 111 mg/dL _(girma c) high Refer ence range : <100 Cynthia able range <100 mg/dL for prima ry preve ntion ; <70 mg/dL for patie nts with CHD or diabe tic patie nts with > or = 2 CHD risk facto rs. LDL-C is now calcu lated using the Lily gordon-Hop gi higginbothamu silvina n, which is a valid ated novel kenyatta jennings accur acy than the Fried gerry equat ion in the estim ation of LDL-C . Lily gordon SS et al. JIMENA. 2013; 310(1 9): 2061- 2068 (http ://ed ucati on.Qu Elida george UNYQs. com/f aq/FA Q164) Not Available [facility] [address] [place], [address], 05/19/2024 03:49:49 05/16/20 24 05/19/2024 LIPID PANEL WITH RATIO S chol/HDLC ratio 3.5 (calc ) <5.0 normal Not Available [facility] [address] [place], [address], 05/19/2024 03:49:49 05/16/20 05/19/2024 LIPID PANEL WITH RATIO S LDL/HDL ratio 2.2 (calc ) Below Noble ge Risk: <2.28 Noble ge Risk: 2.29- 4.90 Moder ate Risk: 4.91- 7.12 High Risk: >7.13 Not Available [address], [address], 05/19/2024 03:49:49 05/16/20 24 05/19/2024 LIPID PANEL WITH RATIO S non HDL cholesterol 126 mg/dL _(girma c) <130 normal For patie nts with diabe ricco plus 1 major ASCVD risk facto r, treat ing to a non-H DL-C goal of <100 mg/dL (LDL- C of <70 mg/dL ) is consi dered a thera peuti c optio n. Not Available [address], [address], 05/19/2024 03:49:49 05/16/20 24 05/19/2024 COMPR EHENS JOVI METAB OLIC PANEL glucose 109 mg/dL 65-99 high Fasti ng refer ence inter angelina For someo ne witho ut known diabe ricco, a gluco se value betwe en 100 and 125 mg/dL is consi stent with predi abete s and shoul d be confi rmed with a follo w-up test. Not Available [address], [address], 05/19/2024 03:49:50 05/16/20 24 05/19/2024 COMPR EHENS JOVI METAB OLIC PANEL urea nitrogen (BUN) 13 mg/dL 7-25 normal Not Available [address], [address], 05/19/2024 03:49:50 05/16/20 24 05/19/2024 COMPR EHENS JOVI METAB OLIC PANEL creatinine 0.82 mg/dL 0.70-1 .35 normal Not Available [facility] [address] [place], [address], 05/19/2024 03:49:50 05/16/20 24 05/19/2024 COMPR EHENS JOVI METAB OLIC PANEL eGFR 101 mL/mi n/1.7 3m2 > or = 60 normal Not Available [address], [address], 05/19/2024 03:49:50 05/16/20 24 05/19/2024 COMPR EHENS JOVI METAB OLIC PANEL BUN/creatini ne ratio SEE NOTE: (calc ) 6-22 Not Repor luis enrique: BUN and Creat inine are withi n refer ence range . Not Available [address], [address], 05/19/2024 03:49:50 05/16/20 24 05/19/2024 COMPR EHENS JOVI METAB OLIC PANEL sodium 138 mmol/ L 135-14 6 normal Not Available [address], [address], 05/19/2024 03:49:50 05/16/20 24 05/19/2024 COMPR EHENS JOVI METAB OLIC PANEL potassium 4.6 mmol/ L 3.5-5. 3 normal Not Available [address], [address], 05/19/2024 03:49:50 05/16/20 24 05/19/2024 COMPR EHENS JOVI METAB OLIC PANEL chloride 102 mmol/ L 98-110 normal Not Available [address], [address], 05/19/2024 03:49:50 05/16/20 24 05/19/2024 COMPR EHENS JOVI METAB OLIC PANEL carbon dioxide 29 mmol/ L 20-32 normal Not Available [address], [address], 05/19/2024 03:49:50 05/16/20 24 05/19/2024 COMPR EHENS JOVI METAB OLIC PANEL calcium 9.2 mg/dL 8.6-10 .3 normal Not Available [address], [address], 05/19/2024 03:49:50 05/16/20 24 05/19/2024 COMPR EHENS JOVI METAB OLIC PANEL protein, total 7.0 g/dL 6.1-8. 1 normal Not Available [address], [address], 05/19/2024 03:49:50 05/16/2005/19/2024 COMPR EHENS JOVI METAB OLIC PANEL albumin 4.2 g/dL 3.6-5. 1 normal Not Available [address], [address], 05/19/2024 03:49:50 05/16/20 24 05/19/2024 COMPR EHENS JOVI METAB OLIC PANEL globulin 2.8 g/dL_ (calc ) 1.9-3. 7 normal Not Available [address], [address], 05/19/2024 03:49:50 05/16/20 24 05/19/2024 COMPR EHENS JOVI METAB OLIC PANEL albumin/glob ulin ratio 1.5 (calc ) 1.0-2. 5 normal Not Available [address], [address], 05/19/2024 03:49:50 05/16/20 24 05/19/2024 COMPR EHENS JOVI METAB OLIC PANEL bilirubin, total 0.4 mg/dL 0.2-1. 2 normal Not Available [address], [address], 05/19/2024 03:49:50 05/16/20 24 05/19/2024 COMPR EHENS JOVI METAB OLIC PANEL alkaline phosphatase 88 U/L 35-144 normal Not Available [facility] [address] [place], [address], 05/19/2024 03:49:50 05/16/20 24 05/19/2024 COMPR EHENS JOVI METAB OLIC PANEL AST 17 U/L 10-35 normal Not Available [facility] [address] [address] [place], [address], 05/19/2024 03:49:50 05/16/20 24 05/19/2024 COMPR EHENS JOVI METAB OLIC PANEL ALT 19 U/L 9-46 normal Not Available [address] [address] [place], [address], 05/19/2024 03:49:50 05/16/20 24 05/19/2024 HEMOG LOBIN A1C hemoglobin A1C 6.0 %_of_ total _HGB <5.7 high For someo ne witho ut known diabe ricco, a hemog lobin A1c value betwe en 5.7% and 6.4% is consi stent with predi abete s and shoul d be confi rmed with a follo w-up test. For someo ne with known diabe ricco, a value <7% indic ates that their diabe ricco is well contr olled . A1c targe ts shoul d be indiv idual ized based on durat ion of diabe ricco, age, comor bid condi tions , and other consi derat ions. This assay resul t is consi stent with an incre ased risk of diabe ricco. Curre ntly, no conse nsus exist s regar ding use of hemog lobin A1c for diagn osis of diabe ricco for child yamilka. This test was perfo rmed on the [facility] fel[facility] c503 platf orm. Effec tive , milagros mims in test platf orms from the [facility] to the [facility] felicia c503 may have shift ed HbA1c resul ts ganga red to histo rical resul ts. Based on labor atory valid ation testi ng condu cted at [facility] , the [facility] platf orm relat jovi to the [facility] platf orm had an avera ge incre ase in HbA1c value of < or = 0.3%. This diffe rence is withi n accep luis enrique varia bilit y estab lishe d by the [facility] hemog lobin Stand ardiz ation Progr am. Note that not all indiv idual s will have had a shift in their resul ts and direc t ganga rison s betwe en histo rical and curre nt resul ts for testi ng condu cted on diffe rent platf orms is not recom bbas d. Not Available [facility] [address], [address], 05/19/2024 03:49:50 05/16/20 24 05/19/2024 CBC (INCL UDES DIFF/ PLT) white blood cell count 5.7 thous and/u L 3.8-10 .8 normal Not Available [address], [address], 05/19/2024 03:49:50 05/16/20 24 05/19/2024 CBC (INCL UDES DIFF/ PLT) red blood cell count 4.80 ayde on/uL 4.20-5 .80 normal Not Available [address], [address], 05/19/2024 03:49:50 05/16/20 24 05/19/2024 CBC (INCL UDES DIFF/ PLT) hemoglobin 14.5 g/dL 13.2-1 7.1 normal Not Available [facility] [address], [address], 05/19/2024 03:49:50 05/16/20 24 05/19/2024 CBC (INCL UDES DIFF/ PLT) hematocrit 44.1 % 38.5-5 0.0 normal Not Available [facility] [address], [address], 05/19/2024 03:49:50 05/16/20 24 05/19/2024 CBC (INCL UDES DIFF/ PLT) MCV 91.9 fL 80.0-1 00.0 normal Not Available [address], [address], 05/19/2024 03:49:50 05/16/20 24 05/19/2024 CBC (INCL UDES DIFF/ PLT) MCH 30.2 pg 27.0-3 3.0 normal Not Available [address], [address], 05/19/2024 03:49:50 05/16/20 24 05/19/2024 CBC (INCL UDES DIFF/ PLT) MCHC 32.9 g/dL 32.0-3 6.0 normal Not Available [address], [address], 05/19/2024 03:49:50 05/16/20 24 05/19/2024 CBC (INCL UDES DIFF/ PLT) RDW 12.7 % 11.0-1 5.0 normal Not Available [address], [address], 05/19/2024 03:49:50 05/16/2005/19/2024 CBC (INCL UDES DIFF/ PLT) platelet count 273 thous and/u L 140-40 0 normal Not Available [address], [address], 05/19/2024 03:49:50 05/16/20 24 05/19/2024 CBC (INCL UDES DIFF/ PLT) MPV 10.0 fL 7.5-12 .5 normal Not Available [address], [address], 05/19/2024 03:49:50 05/16/20 24 05/19/2024 CBC (INCL UDES DIFF/ PLT) absolute neutrophils 2958 cells /uL 1500-7 800 normal Not Available [address], [address], 05/19/2024 03:49:50 05/16/20 24 05/19/2024 CBC (INCL UDES DIFF/ PLT) absolute lymphocytes 1613 cells /uL 850-39 00 normal Not Available [address], [address], 05/19/2024 03:49:50 05/16/20 24 05/19/2024 CBC (INCL UDES DIFF/ PLT) absolute monocytes 604 cells /uL 200-95 0 normal Not Available [address], [address], 05/19/2024 03:49:50 05/16/2005/19/2024 CBC (INCL UDES DIFF/ PLT) absolute eosinophils 485 cells /uL 15-500 normal Not Available [address], [address], 05/19/2024 03:49:50 05/16/20 24 05/19/2024 CBC (INCL UDES DIFF/ PLT) absolute basophils 40 cells /uL 0-200 normal Not Available [address], [address], 05/19/2024 03:49:50 05/16/20 24 05/19/2024 CBC (INCL UDES DIFF/ PLT) neutrophils 51.9 % normal Not Available [address], [address], 05/19/2024 03:49:50 05/16/2005/19/2024 CBC (INCL UDES DIFF/ PLT) lymphocytes 28.3 % normal Not Available [address], [address], 05/19/2024 03:49:50 05/16/20 24 05/19/2024 CBC (INCL UDES DIFF/ PLT) monocytes 10.6 % normal Not Available [address], [address], 05/19/2024 03:49:50 05/16/20 24 05/19/2024 CBC (INCL UDES DIFF/ PLT) eosinophils 8.5 % normal Not Available [address], [address], 05/19/2024 03:49:50 05/16/20 24 05/19/2024 CBC (INCL UDES DIFF/ PLT) basophils 0.7 % normal Not Available [address], [address], 05/19/2024 03:49:50 05/16/2005/19/2024 URINA LYSIS , COMPL ETE color YELLOW yellow normal Not Available [address], [address], 05/19/2024 03:49:51 05/16/2005/19/2024 URINA LYSIS , COMPL ETE appearance CLEAR clear normal Not Available [address], [address], 05/19/2024 03:49:51 05/16/2005/19/2024 URINA LYSIS , COMPL ETE specific gravity 1.020 1.001- 1.035 normal Not Available [address], [address], 05/19/2024 03:49:51 05/16/2005/19/2024 URINA LYSIS , COMPL ETE pH 5.5 5.0-8. 0 normal Not Available [address], [address], 05/19/2024 03:49:51 05/16/2005/19/2024 URINA LYSIS , COMPL ETE glucose NEGATI VE negati ve normal Not Available [address], [address], 05/19/2024 03:49:51 05/16/20 24 05/19/2024 URINA LYSIS , COMPL ETE bilirubin NEGATI VE negati ve normal Not Available [address], [address], 05/19/2024 03:49:51 05/16/20 24 05/19/2024 URINA LYSIS , COMPL ETE ketones NEGATI VE negati ve normal Not Available [address], [address], 05/19/2024 03:49:51 05/16/2005/19/2024 URINA LYSIS , COMPL ETE occult blood NEGATI VE negati ve normal Not Available [address], [address], 05/19/2024 03:49:51 05/16/20 24 05/19/2024 URINA LYSIS , COMPL ETE protein NEGATI VE negati ve normal Not Available [address], [address], 05/19/2024 03:49:51 05/16/20 24 05/19/2024 URINA LYSIS , COMPL ETE nitrite NEGATI VE negati ve normal Not Available [address], [address], 05/19/2024 03:49:51 05/16/20 24 05/19/2024 URINA LYSIS , COMPL ETE leukocyte esterase NEGATI VE negati ve normal Not Available [address], [address], 05/19/2024 03:49:51 05/16/20 24 05/19/2024 URINA LYSIS , COMPL ETE WBC NONE SEEN /hpf < or = 5 normal Not Available [address], [place], [address], 05/19/2024 03:49:51 05/16/20 24 05/19/2024 URINA LYSIS , COMPL ETE RBC NONE SEEN /hpf < or = 2 normal Not Available [facility] [address], [address], 05/19/2024 03:49:51 05/16/20 24 05/19/2024 URINA LYSIS , COMPL ETE squamous epithelial cells NONE SEEN /hpf < or = 5 normal Not Available [facility] [address], [address], 05/19/2024 03:49:51 05/16/20 24 05/19/2024 URINA LYSIS , COMPL ETE bacteria NONE SEEN /hpf none seen normal Not Available [address], [address], 05/19/2024 03:49:51 05/16/20 24 05/19/2024 URINA LYSIS , COMPL ETE hyaline cast NONE SEEN /lpf none seen normal Not Available [address], [address], 05/19/2024 03:49:51 05/16/20 24 05/19/2024 EXTRA SPECI MEN extra tube received An extra speci men was recei luis daniel with no test reque sted. The speci men will be maint ained in stora ge in case addit ional testi ng is gregorio Major e call the [facility] [place] for sina levine . Not Available [facility] [address], [address], 05/19/2024 03:49:51 05/16/20 24 05/19/2024 EXTRA SPECI MEN specimen type received Urine Not Available [address], [address], 05/19/2024 03:49:51 05/16/20 24 05/19/2024 CULTU RE, URINE , ROUTI NE culture, urine, routine CULTU RE, URINE , ROUTI NE Micro Numbe r: [id number] Test Statu s: Final Speci men Sourc e: Urine Speci men Quali ty: Adequ ate Resul t: No Growt h We recei luis daniel a prese rved urine cultu re trans port tube with eithe r no order indic ated or a sourc e which is inapp ropri ate for the test reque sted. A urine cultu re was perfo rmed. If this is not what you inten ded to order , pleas e conta ct your local clien t servi ce repre senta tive immed iatel y so that we can adjus t our ranjan ng appro priat brenden. You may also inqui re about alter nativ e or addit ional testi ng. Not Available [address] [address] [place], [address], 05/19/2024 03:49:52 04/13/20 22 03/27/2022 home sleep study No observ ation record ed. [id number] [place] [address], [id number], 11/28/2022 02:59:32 06/29/20 22 06/23/2022 US, echoc ardio gram, trans thora cic, compl ete, w/ color flow No observ ation record ed. [id number] [address] [facility], [place], [address], 11/28/2022 02:59:32 07/30/20 22 07/03/2022 polys omnog timothy , titra tion study (PROC ) No observ ation record ed. [id number].[id number] [facility] [address] [place], [address], 11/28/2022 02:59:32 09/12/20 22 07/29/2018 audio logic asses sment (PROC ) No observ ation record ed. [id number] [facility] [address], [place], [address], 11/28/2022 02:59:32 02/07/20 23 02/06/2023 xuan can cardi olite stres s test (PROC ) No observ ation record ed. [email or web address] [facility] [address], [place], [address], 06/24/2023 17:38:35 05/02/20 23 05/02/2023 colon oscop y proce dure (PROC ) No observ ation record ed. [email or web address] Cuco Weeks MD [address] [facility] [address], [place], [address], 06/24/2023 17:38:20 Result Notes None recorded. Problems Name Problem SNOMED Code Status Onset Date Resolution Date Notes Provider Name and Address Organization Details Recorded Time Tight chest 27117225 Active 2021 Not Available [facility] 3 17:05:14 Seasonal allergic rhinitis 611580997 Active 2021 Not Available [facility] 3 17:05:14 Left ventricular diastolic dysfunction 457801256 Active 2021 Not Available [facility] 3 17:05:14 Prostate specific antigen above reference range 903173757 Active 2021 Not Available [facility] 3 17:05:14 Dyspnea on exertion 58766812 Active 2021 Not Available [facility] 3 17:05:14 Sleep apnea 66575925 Active 2021 Not Available [facility] 3 17:05:14 Obstructive sleep apnea syndrome 47995997 Active 2021 Not Available [facility] 3 17:05:14 Atypical chest pain 905905507 Active 2022 Not Available [facility] 3 17:05:14 Allergic rhinitis 61202100 Active 2022 Not Available [facility] 3 17:05:14 Blood glucose outside reference range 124563418 Active 2022 Not Available Pending sale to [facility] 3 17:05:14 Erectile dysfunction 198148623 Active 2022 Not Available Pending sale to [facility] 3 17:05:14 Problem Notes None recorded. Procedures Surgical History Date Name Laterality Status Provider Name and Address Organization Details Recorded Time 2 Sinus Surgery completed Not Available Pending sale to [facility] 11/28/2022 02:44:54 6 partial repair of rotator cuff completed Not Available Pending sale to [facility] 11/28/2022 02:44:54 Imaging Results Imaging Date Name Status LastModified by Organiz ation Details LastModified Time 07/03/2022 polysomnography , titration study (PROC) completed [id number] [facility] [address] [place], [address], 11/28/2022 02:59:32 07/29/2018 audiologic assessment (PROC) completed [id number] 6635 [facility] [address] [place], [address], 11/28/2022 02:59:32 06/23/2022 US, echocardiogram, transthoracic, complete, w/ color flow completed [id number] [facility] [address], [place], [address], 11/28/2022 02:59:32 03/27/2022 home sleep study completed [id number] [address] [facility] [address], [place], [address], 11/28/2022 02:59:32 02/06/2023 lexiscan cardiolite stress test (PROC) completed [email or web address] [facility] [address] [facility] [address], [place], [address], 06/24/2023 17:38:35 05/02/2023 colonoscopy procedure (PROC) completed [email or web address] Cuco Weeks MD [address] [facility] [address], [place], [address], 06/24/2023 17:38:20 Procedure Notes None recorded. Medical Equipment None Reported. Allergies No known drug allergies Medications Name Sig Start Date Stop Date Status Note LastModified by Organization Details LastModified Time azithromy becky 250 mg tablet 04/29 completed Not Available Not Available Not Available tamsulosi n 0.4 mg capsule TAKE 1 (ONE) CAPSULE BY MOUTH AT BEDTIME active Not Available Not Available No t Available Cipro 500 mg tablet Take 1 tablet every 12 hours by oral route. 08/11 completed Not Available Not Available Not Available diltiazem CD 120 mg capsule,e xtended release 24 hr TAKE 1 CAPSULE BY MOUTH EVERY DAY 2022 active Not Available Not Available Not Avai lable monteluka st 10 mg tablet TAKE 1 TABLET BY MOUTH EVERY DAY active Not Available Not Available No t Available codeine 10 mg-guaife nesin 100 mg/5 mL oral liquid 04/29 completed Not Available Not Available Not Available zolpidem 5 mg tablet TAKE 1 TABLET BY MOUTH PRIOR TO SLEEP STUDY 08/13 completed Not Available Not Available Not Available fluticaso ne propionat e 50 mcg/actua tion nasal spray,isaak pension USE 1 TO 2 SPRAYS IN EACH NOSTRIL DAILY active Not Available Not Available No t Available naproxen 500 mg tablet TAKE 1 TABLET BY MOUTH TWICE A DAY WITH MEALS active Not Available Not Available No t Available tadalafil 20 mg tablet TAKE 1 TABLET BY MOUTH 30 MIN PRIOR TO SEXUAL ACTIVITY . MAX OF 20MG IN 24 HOURS active Not Available Not Available No t Available aspirin 02/07 completed Not Available Not Available Not Available B Complex 02/07 completed Not Available Not Available Not Available Gavilyte- C 240 gram-22.7 2 gram-6.72 gram-5.84 gram oral solution USE DIRECTED 12/09 completed Not Available Not Available Not Available sodium,po tassium,m ag sulfates 17.5 gram-3.13 gram-1.6 gram oral soln TAKE DIRECTED active Not Available Not Available No t Available Flucelvax Quad 7130-3764 (PF) 60 mcg (15 mcg x 4)/0.5 mL IM syringe TO BE ADMINIST ERED BY PHARMACI ST FOR IMMUNIZA TION 12/05 completed Not Available Not Available Not Available Fluzone Quad (PF) 60 mcg (15 mcg x 4)/0.5 mL IM syringe TO BE ADMINIST ERED BY PHARMACI ST FOR IMMUNIZA TION active Not Available Not Available No t Available Wegovy 0.25 mg/0.5 mL subcutane ous pen injector Inject by subcutan eous route for 28 days. active Approved wegovy. Valid: 12/13/22- 07/15/23 . ALESHIA# [facility] [phone] [place]. Not Available Not Available Not Available Multi For Him (no iron) 2020 active Not Available Not Available Not Avai lable Vitals Date Recorded Body height Body temperature Body mass index (BMI) Body weight Respiratory rate Oxygen saturation Oxygen saturation in Arterial blood by Pulse oximetry Heart rate Systolic blood pressure Diastolic blood pressure Provider Name and Address Organization Details Last Updated DateTime 3 177.8 cm 97.2 [degF] 47.8 kg/m2 974192. 26 g 16 /min 96 % 96 % 68 /min 122 mm[Hg] 80 mm[Hg] DANICA Fonseca [facility] [employer] 3 17:24:10 Date Recorded Body height Body weight Body temperature Heart rate Oxygen saturation Oxygen saturation in Arterial blood by Pulse oximetry Systolic blood pressure Diastolic blood pressure Provider Name and Address Organization Details Last Updated DateTime 3 177.8 cm 601512. 41 g 97.3 [degF] 71 /min 98 % 98 % 132 mm[Hg] 70 mm[Hg] Meryl Howell RN [facility] [employer] 3 17:31:56 Date Recorded Body mass index (BMI) Provider Name and Address Organization Details Last Updated DateTime 06/24/2023 48.8 kg/m2 ALESHIA Ervin [address] [facility], [facility] [[email or web address]] [address], [place], [address], [facility] [employer] 06/30/2023 11:50:50 Date Recorded Body mass index (BMI) Body height Oxygen saturation Oxygen saturation in Arterial blood by Pulse oximetry Heart rate Body temperature Body weight Systolic blood pressure Diastolic blood pressure Provider Name and Address Organization Details Last Updated DateTime 1 46.9 kg/m2 177.8 cm 98 % 98 % 64 /min 98 [degF] 121977. 7 g 120 mm[Hg] 80 mm[Hg] Not Available [facility] 3 02:47:50 Date Recorded Body mass index (BMI) Body height Oxygen saturation Oxygen saturation in Arterial blood by Pulse oximetry Heart rate Respiratory rate Body temperature Body weight Systolic blood pressure Diastolic blood pressure Provider Name and Address Organization Details Last Updated DateTime 2 46.9 kg/m2 177.8 cm 96 % 96 % 62 /min 20 /min 96.5 [degF] 384185. 7 g 126 mm[Hg] 70 mm[Hg] Not Available [facility] 3 02:47:50 Date Recorded Body mass index (BMI) Body height Oxygen saturation Oxygen saturation in Arterial blood by Pulse oximetry Heart rate Respiratory rate Body temperature Body weight Systolic blood pressure Diastolic blood pressure Provider Name and Address Organization Details Last Updated DateTime 2 46.6 kg/m2 177.8 cm 95 % 95 % 62 /min 20 /min 97.1 [degF] 571701. 52 g 130 mm[Hg] 82 mm[Hg] Not Available Pending sale to [facility] 3 02:47:50 Social History Question Answer Notes LastModified by Organizat ion Details LastModified Time Tobacco Smoking Status Never Smoker Not Available Pending sale to [facility] 11/28/2022 02:39:11 What Is Your Level Of Alcohol Consumption? Occasional [id number] Information not available 11/28/2022 What Is Your Level Of Caffeine Consumption? Heavy MIGRATION.[id number] 9299 Information not available 11/28/2022 How Much Tobacco Do You Chew? None MIGRATION.[id number] 2701 Information not available 11/28/2022 In The 14 Days Before Symptom Onset, Have You Had Close Contact With A Laboratory-confirm ed COVID-19 While That Case Was Ill? No MIGRATION.360461 5816 Information not available 11/28/2022 In The 14 Days Before Symptom Onset, Have You Had Close Contact With A Person Who Is Under Investigation For COVID-19 While That Person Was Ill? No MIGRATION.[id number] 5905 Information not available 11/28/2022 What Type Of Diet Are You Following? REGULAR MIGRATION.[id number] 6575 Information not available 11/28/2022 Which Illicit Or Recreational Drugs Have You Used? None MIGRATION.[id number] 8882 Information not available 11/28/2022 Have There Been Any Changes To Your Family Or Social Situation? No MIGRATION.305393 6085 Information not available 11/28/2022 Are There Any Guns Present In Your Home? No MIGRATION.107991 7114 Information not available 11/28/2022 Do You Use Insect Repellent Routinely? No MIGRATION.785224 0487 Information not available 11/28/2022 What Is Your Relationship Status? MIGRATION.576133 6657 Information not available 11/28/2022 Do You Use Your Seat Belt Or Car Seat Routinely? Yes Information not available 06/21/2023 Do You Have Smoke And Carbon Monoxide Detectors In Your Home? Yes MIGRATION.344671 8031 Information not available 11/28/2022 How Much Tobacco Do You Smoke? No MIGRATION.605786 0507 Information not available 11/28/2022 Do You Use Any Illicit Or Recreational Drugs? No MIGRATION.104196 3811 Information not available 11/28/2022 Do You Use Sunscreen Routinely? Yes MIGRATION.394719 1993 Information not available 11/28/2022 How Many Years Have You Smoked Tobacco? 0 MIGRATION.750026 3661 Information not available 11/28/2022 Have You Recently Traveled Abroad? No MIGRATION.613249 2529 Information not available 11/28/2022 Do You Have Any Dietary Restrictions? No MIGRATION.600729 3416 Information not available 11/28/2022 Do You Or Have You Ever Used Any Other Forms Of Tobacco Or Nicotine? No MIGRATION.542526 4831 Information not available 11/28/2022 Sex: Unknown Functional Status Question Answer Note LastModified by Organizat ion Details LastModified Time What is your exercise level? None [id number] Information not available 11/28/2022 Mental Status None recorded. Family History Relationship Description Onset Age of this Age Resolved Age Notes LastModified by Organization Details LastModified Time Brother Pulmonary embolism [id number] Not available 11/28/2022 02:44:58 Sister Pulmonary embolism MIGRATION.530 [id number] Not available 11/28/2022 02:44:58 Sister Malignant tumor of pancreas MIGRATION.966 [id number] Not available 11/28/2022 02:44:58 Father General health good MIGRATION.315 [id number] Not available 11/28/2022 02:44:58 Medical History Condition Response NERVE DISEASE N BLINDNESS N RHEUMATIC FEVER N KIDNEY STONES N BLADDER PROBLEMS N OTHER # 1 N POLIO N LUNG DISEASE/DISORDER N RADIATION / CHEMOTHERAPY N COPD N Other # 2 N BLOOD DISEASES N SURGERY N EAR OR HEARING PROBLEMS N MUMPS N BOWEL PROBLEMS N DEPRESSION (INCLUDING POST ) N STROKE/TIA N ULCERS N BENIGN PROSTATIC HYPERPLASIA N MEASLES N MYOCARDIAL INFARCTION N OBESITY N GERD/NAUSEA N ANEURYSM N URINARY/BLADDER/KIDNEY PROBLEMS N INPATIENT PSYCH CARE N CORONARY ARTERY DISEASE (CAD) N ADDICTION CONCERNS N ENDOMETRIOSIS N Impotence N USE OF BLOOD THINNERS N SKIN PROBLEMS N GASTROINTESTINAL DISORDER N PERIPHERAL VASCULAR DISEASE N MUSCLE,JOINT OR BONE PROBLEMS N GASTROINTESTINAL BLEEDING N BLOOD CLOTS N ASTHMA N CATARACTS N ERECTILE DYSFUNCTION N VARICOSITIES N GI PROBLEMS N Low Testosterone N INFERTILITY N AIDS/HIV N LIVER DISEASE N MALE HYPOGONADISM N HYPERTENSION N Deficiency N ANXIETY DISORDER N BLOOD TRANSFUSION N ANEMIA/BLOOD DISORDER N CHRONIC EAR INFECTIONS N BRONCHITIS N TUBERCULOSIS N GLAUCOMA N FOOT PROBLEM N DIVERTICULITIS N SLEEP APNEA N CHICKENPOX N INFECTIOUS DISEASE N HEART ARRHYTHMIA N PROSTATE N INSOMNIA N HIGH CHOLESTEROL / HYPERLIPIDEMIA N HYPERTHYROIDISM N EYE PROBLEMS N NEUROLOGICAL PROBLEMS N EDEMA N CHRONIC PAIN SYNDROME N HYPOTHYROIDISM N CAROTID BLOCKAGE N CONSTIPATION N BACK / NECK PROBLEMS N HAVE YOU BEEN HOSPITALIZED OR SEEN IN [facility] IN THE PAST YEAR ? N ATHEROSCLEROSIS N BREAST PROBLEMS N DIALYSIS N ECZEMA N OSTEOPOROSIS N ARTHRITIS N NO SIGNIFICANT PAST MEDICAL HISTORY N APPENDICITIS N DIABETES, TYPE N BAD TEETH N ENT N HEARTBURN / REFLUX N AUTISM SPECTRUM DISORDER (ASD) N HEPATITIS / LIVER DISEASE N PULMONARY DISEASE N GOUT N SLEEP DISORDER N ALZHEIMER'S DISEASE N Brain Problems N HERPES N DEMENTIA N HEADACHES/MIGRAINES N SEIZURES/EPILEPSY N VASCULAR DISEASE N PACEMAKER N Blood Disorder N DIZZINESS N HEART DISEASE/HEART PROBLEMS N KIDNEY DISEASE N MULTIPLE SCLEROSIS N CARDIAC ARRHYTHMIA N CANCER: SPECIFY N ANESTHESIA COMPLICATIONS N ATRIAL FIBRILLATION N Gall Stones N PULMONARY EMBOLISM N AUTOIMMUNE DISEASE N Immunizations Vaccine Type Date Status Note Provider Nam e and Address Organization Details Recorded Time Influenza, split virus, quadrivalent, preservative 1 completed Not Available Pending sale to [facility] 11/28/2022 02:58:46 Influenza, split virus, quadrivalent, preservative 2 completed Not Available Pending sale to [facility] 11/28/2022 02:58:46 COVID-19, mRNA, LNP-S, PF, 30 mcg/0.3 mL dose 2 completed Not Available Pending sale to [facility] 11/28/2022 02:58:46 COVID-19, mRNA, LNP-S, PF, 100 mcg/0.5mL dose or 50 mcg/0.25mL dose 1 completed Not Available Pending sale to [facility] 11/28/2022 02:58:46 COVID-19, mRNA, LNP-S, PF, 30 mcg/0.3 mL dose 1 completed Not Available Pending sale to [facility] 11/28/2022 02:58:47 COVID-19, mRNA, LNP-S, PF, 30 mcg/0.3 mL dose 1 completed Not Available Pending sale to [facility] 11/28/2022 02:58:47 Influenza, split virus, quadrivalent, preservative 8 completed Not Available Pending sale to [facility] 11/28/2022 02:58:47 influenza, unspecified formulation 3 completed Mariama Keenan RMA null, [place] [employer] [facility] 07/10/2023 15:01:17 COVID-19, mRNA, LNP-S, PF, 30 mcg/0.3 mL dose 3 completed Mariama Keenan RMA null, [place] [employer] [facility] 07/10/2023 15:02:52 zoster, unspecified formulation 3 completed Mariama Keenan RMA null, [place] [employer] [facility] 08/30/2023 15:56:28 pneumococcal, unspecified formulation 3 completed Mariama Keenan RMA null, [place] [facility] 08/30/2023 15:57:05 Past Encounters Encounter ID Performer Location Encounter Start Date Encounter Closed Date Diagnosis/Indication Diagnosis SNOMED-CT Code Diagnosis ICD10 Code Diagnosis Note [id number] [facility] [place] [address] [place] [address] 12/12/2020 00:00:00 12/28/2020 11:59:58 [id number] [facility] [place] [address] [place], [place] [address] 04/05/2021 00:00:00 04/23/2021 17:34:08 [id number] [facility] [place] [address] [place], [place] [address] 08/11/2021 00:00:00 09/20/2021 13:45:16 [id number] [facility] [place] [address] [place], [place] [address] 02/07/2022 00:00:00 02/18/2022 12:24:38 [id number] [facility] [place] [address] [place], [place] [address] 08/13/2022 00:00:00 08/29/2022 18:38:52 [id number] ALESHIA Ervin [facility] [place] [address] [place], [place] [address] 12/10/2022 17:15:05 12/10/2022 17:52:32 Obstructive sleep apnea syndrome 98962463 G47.33 on cpap , still trying to get used to it. Atypical chest pain 1025 27592 R07.89 refer again for lexiscan stress testing. pt cannot complete treadmill testing due to arthritis in the knees. Left ventr icular diastolic dysfunction 111013230 I50.30 on diltiazem and stable. Prostate s pecific antigen above reference range 021053717 R97.20 followed routinely with urology and UTD on exam Allergic rhinitis 104597 04 J30.9 stable on singulair and flonase. History of polyp of colon 685228256 Z86.010 due for f/u colonoscop y Body mass index 40+ - severely obese 642703341 Z68.42 start wegovy if insurance will cover Long-term drug therapy 562740095 Z79.899 next labs set due in may Blood gluc ose outside reference range 511477766 R73.09 following A1c. Cholesterol screening 27 6529418 Z13.118 [id number] ALESHIA Ervin [facility] [place] [address] [place] [address] 06/24/2023 17:26:02 06/24/2023 18:02:43 Adult health examination 313521635 Z00.01 well exam completed. . Left ventr icular diastolic dysfunction 637345752 I50.30 on diltiazem and stable. (noted on echo testing) Prostate s pecific antigen above reference range 712219107 R97.20 followed routinely with urology and UTD on exam Obstructiv e sleep apnea syndrome 24667027 G47.33 on cpap , still trying to get used to it. Allergic rhinitis 696437 04 J30.9 stable on singulair and flonase. Body mass index 40+ - severely obese 378374794 Z68.42 Long-term drug therapy 254517379 Z79.899 Erectile dysfunction 860 566788 F52.21 trial of tadalafil 20mg daily PRN Health Concerns Section Related Observation LastModified by Organization Detai ls LastModified Time None Recorded Concern Status LastModified by Organization Details LastModified Time None Recorded Advance Directives Directive None Recorded Payers Encounter Date Sequence Insurance Name Policy Number Policy Rojas Covered Member ID Rojas Member ID Guarantor Name 12/10/2022 1 [employer] ([place] [id number] 8 Sourav Evans [id number] Sourav Evans 06/24/2023 1 [employer] [id number] 8 Sourav Evans [id number] Sourav Evans Notes Date Note Type Note Provider Name and Address Organization Details Recorded Time 08/11/2021 text/html Generic HPI TemplateReported bypatient.Notes:Pt is here today for a 6 month follow up, doing fine,no complaints Not Available [employer] 09/20/2021 13:45:16 02/07/2022 text/html Generic HPI TemplateReported bypatient.Notes:Here for wellness. No chronic problems. No major complaints. He does have chronic allergies and needs a rf on his nasal spray and montelukast. 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 Onset/Timing:new onset Severity:does not interfere with daily activities; no drowsiness while driving; drowsiness not affecting work Quality:no gasping for air; no hyponasal speech;loud snoring;frequent breathing through the mouth Location of sleep apnea:no enlarged tonsils; no nasal passage blockage; no throat pain; no feeling of tightness in throat; no chest congestion;dryness of mouth Restless leg syndrome:jerking in sleep Prescribed sleep medications:not taking medication to help sleep Associated Symptoms:no hypertension; no history of stroke; no heart disease; no automobile accidents as a result of sleepiness; no increased motor activity at night; does not act out dreams; no history of sleep disorder; no family history of sleep disorder; no restless leg symptoms; good sleep hygiene;sleep problems for 10 years, sleep problems are and the patient has problems Not Available [facility] [employer] [facility] 08/29/2022 18:38:52 12/10/2022 text/html Obstructive Slee p Apnea F/UReported bypatient.Quality:no loud snoring; no gasping for air; no witnessed apnea; no hyponasal speech; no frequent breathing through the mouth Onset/Timing:chronic Duration:continuous Severity:does not limit daily activities; no frequent sore throats resulting in excess missed days from school / work per year; no difficulty getting going in the morning; no awakening in the middle of the night with sore throat Location:no enlarged tonsils; no nasal passage blockage; no throat pain; no feeling of tightness in throat; no chest congestion;dryness of mouth Context:no lack of adequate sleep; no shift work; not currently taking medication to help sleep; no recent weight gain; no recent upper respiratory infection; no recent sick contacts; not worse with environmental exposure; not worse with seasonal allergen exposure; no hypertension; normal sleep hours Alleviating factors:relief with CPAP Aggravating factors:not worse during an upper respiratory infection (a cold); not worse when allergies are active Associated Symptoms:no morning headache; no awakening at night short of breath; no sweating heavily at night; no excessive sleepiness during the day; no suddenly falling asleep during the day; no napping; no impaired work performace; no nasal congestionNotes:He is still trying to get use to his CPAP. He never got his stress test that was ordered in old system bc his insurance denied it. ALESHIA Ervin [address], [facility] [[email or web address] [address], [place], [address], [employer] 12/16/2022 12:01:09 06/24/2023 text/html Obstructive Slee p Apnea F/UReported bypatient.Quality:no loud snoring; no gasping for air; no witnessed apnea; no hyponasal speech; no frequent breathing through the mouth Onset/Timing:chronic Duration:continuous Severity:does not limit daily activities; no frequent sore throats resulting in excess missed days from school / work per year; no difficulty getting going in the morning; no awakening in the middle of the night with sore throat Location:no enlarged tonsils; no nasal passage blockage; no throat pain; no feeling of tightness in throat; no chest congestion;dryness of mouth Context:no lack of adequate sleep; no shift work; not currently taking medication to help sleep; no recent weight gain; no recent upper respiratory infection; no recent sick contacts; not worse with environmental exposure; not worse with seasonal allergen exposure; no hypertension; normal sleep hours Alleviating factors:relief with CPAP Aggravating factors:not worse during an upper respiratory infection (a cold); not worse when allergies are active Associated Symptoms:no morning headache; no awakening at night short of breath; no sweating heavily at night; no excessive sleepiness during the day; no suddenly falling asleep during the day; no napping; no impaired work performace; no nasal congestionNotes:He is still trying to get use to his CPAP. wellness ALESHIA Ervin [address], [facility] [[email or web address] [address], [place], [address], [employer] 06/30/2023 11:53:13
== END 2024-12-14 13:43 | disposition home or self-care (01) ==
LOC: CHSIMG 13:46
PROVIDERS: PCP Physician Assistant; Visit Provider Physician Assistant
DX: R60.0 Localized edema (principal)
CPT/HCPCS: 93970

== ENCOUNTER 2025-01-11 07:13 | Outpatient (CLI) | payer BC, SELFPAY ==
--- NOTE | ~2025-01-11 | CT_ITS ---
Clinical Indication: Dyspnea CT Scan of the Chest with Contrast: Technique: Contiguous sections were acquired throughout the chest after intravenous administration of 100 cc of Omnipaque 350. Dose reduction technique was used on this scan by utilizing automated expos ure control and iterative reconstruction technique. The dose-length product (DLP) was 952.74 mGy-cm. Findings: There is no evidence of any significant mediastinal, hilar or axillary lymphadenopathy. There is no f illing defect in the pulmonary arterial tree to suggest pulmonary embolus. There is no evidence of ao rtic dissection or aneurysm. There is no evidence of pleural or pericardial effusion. Mild mosaic attenuation pattern of the lungs. Images through the upper abdomen reveal no abnormalities. Impression: No evidence of pulmonary embolus, aortic dissection, or aortic aneurysm. Possible subtle mild mosaic attenuation pattern of the lungs. Correlate for minimal pulmonary edema, bronchiolitis, hypoventilatory change, asthma, chronic interstitial disease. Reviewed, dictated and finalized at [facility]. Impression: No evidence of pulmonary embolus, aortic dissection, or aortic aneurysm. Possible subtle mild mosaic attenuation pattern of the lungs. Correlate for min imal pulmonary edema, bronchiolitis, hypoventilatory change, asthma, chronic in terstitial disease.
--- OUTSIDE RECORDS SUMMARY | 2025-01-11 07:21 | XMS_ITS | Clinical Summary ---
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
--- OUTSIDE RECORDS SUMMARY | 2025-01-11 07:21 | XMS_ITS | Data Portability ---
[facility] [address] [place] [address] Care Team Providers Care Screener And Blender Name Role Phone CAPRICE CARBALLO Primary Care Provider Unavailab le Assessment No assessment recorded. Plan of Treatment Reminders Order Date Submit Date Provider Last Modified By Organization Details Last Modified Time Details Appointments ANY 15 2024 04:15P M ALESHIA Ervin Not available Not available Not available Lab HbA1c (hemoglob in A1c), blood 2024 025 [employer] [facility], [address] [place], [address], 01/11/2025 04:10:04 TSH + free T4, serum 2024 025 [employer] [facility], [address] [place], [address], 01/11/2025 04:10:02 CMP, serum or plasma 2024 025 [employer] [facility], [address] [place], [address], 01/11/2025 04:10:01 CBC w/ auto diff 2024 025 [employer] [facility], [address] [place], [address], 01/11/2025 04:10:02 lipid panel, serum 2024 025 [employer] [facility], [address] [place], [address], 01/11/2025 04:10:02 PT/PTT, plasma 2024 025 [facility] [employer] [address] [place], [address], 01/11/2025 04:10:02 factor V mutation, blood or tissue [address] [place], [address], 01/11/2025 04:10:03 prothromb in (factor II) [id number] mutation, blood 2024 025 [facility], [address] [place] [address] [place], [address], 01/11/2025 04:10:03 unlisted lab - lupus anticoagu lant and cardiolip in antibody panel with reflex 2024 025 [facility], [address] [place] [address] [place], [address], 01/11/2025 04:10:03 TSH + free T4, serum 2023 024 [email or web address] [facility], [address] [place] [address], [address], 05/05/2024 07:53:07 CMP, serum or plasma 2023 024 [email or web address] [facility], [address] [place] [address], [place], [address], 05/05/2024 07:53:06 CBC w/ auto diff 2023 024 [facility], [address] [place] [address], [place], [address], 05/05/2024 07:53:06 lipid panel, serum 2023 024 [facility], [address] [place] [address] 2, [place], [address], 05/05/2024 07:53:06 HbA1c (hemoglob in A1c), blood 2023 024 [email or web address] [facility], [address] [facility] [address], [place], [address], 05/05/2024 07:53:07 Referral None recorded. Procedures None recorded. Surgeries None recorded. Imaging CT, angiogram , chest, w/ contrast 2024 025 [facility], [address] [facility], [place], [address], 01/11/2025 04:10:04 US, duplex, venous, lower extremity , complete 2024 025 [facility], [address] [facility], [place], [address], 12/15/2024 08:49:06 Medication Orders diltiazem CD 120 mg capsule,e xtended release 24 hr 2024 025 [email or web address] [facility] #[id number], [address] [place], [address], 12/07/2024 17:50:[address] 10 mg tablet 2023 024 [email or web address] [facility] #[id number], [address] [place], [address], 12/07/2024 17:18:14 fluticaso ne propionat e 50 mcg/actua tion nasal spray,isaak pension 2023 024 [id number] [address] [place], [address], 12/04/2023 09:27:49 diltiazem CD 120 mg capsule,e xtended release 24 hr 2023 024 [facility] #[id number], [address] [place], [address], 12/04/2023 09:27:49 Patient TargetsNo targets recorded. Patient Instructions Encounter Date Encounter Id Patient Instructions Last Modified By Organization Details Last Modified Time 06/10/2024 [id number] A healthy lifestyle: care instructions Not available 06/28/2024 12:29:56 12/07/2024 [id number] A healthy lifestyle: care instructions Not available 12/07/2024 17:46:48 Reason for Referral None Reported. Results Created Date Observation Date Name Description Value Unit Range Abnormal Flag Note LastModifiedBy Organization Detail LastModifiedTime 05/16/2005/19/2024 Bacte judy ident ified in Urine by Cultu re bacteria identified in urine by culture cultu re, urine , routi ne Not Available Not Available 11/16/2024 15:26:48 05/16/20 24 05/19/2024 Urina lysis compl ete panel - Urine color of urine YELLOW color Not Available Not Available 10/31 15:26:48 05/16/20 24 05/19/2024 Urina lysis compl ete panel - Urine appearance of urine CLEAR appea luiz Not Available Not Available 11/16/2024 15:26:48 05/16/20 24 05/19/2024 Urina lysis compl ete panel - Urine specific gravity of urine by test strip 1.02 speci fic gravi ty Not Available Not Available 11/16/2024 15:26:48 05/16/20 [...] [#/volume] in blood by automated count absol [place] neutr ophil s Not Available Not Available 11/16/2024 15:26:47 05/16/20 24 05/19/2024 CBC W Auto Diffe renti al panel - Blood lymphocytes [#/volume] in blood by automated count absol [place] lymph ocyte s Not Available Not Available 11/16/2024 15:26:47 05/16/20 24 05/19/2024 CBC W Auto Diffe renti al panel - Blood monocytes [#/volume] in blood by automated count absol [place] monoc ytes Not Available Not Available 11/16/2024 15:26:47 05/16/20 24 05/19/2024 CBC W Auto Diffe renti al panel - Blood eosinophils [#/volume] in blood by automated count absol [place] eosin ophil s Not Available Not Available 11/16/2024 15:26:47 05/16/20 24 05/19/2024 CBC W Auto Diffe renti al panel - Blood basophils [#/volume] in blood by automated count absol [place] basop hils Not Available Not Available 11/16/2024 [...] Not Available Not Available 11/16/2024 15:26:47 05/16/20 05/19/2024 CBC W Auto Diffe renti al [...] 2000 panel - Serum or Plasm a glucose [...] 2000 panel - Serum or Plasm a glomerular [...] 2000 panel - Serum or Plasm a sodium [moles/volum e] in serum or plasma sodiu m Not Available Not Available 11/16/2024 15:26:47 05/16/20 24 05/19/2024 Compr [facility]ohn[facility] metab olic 1999 panel - Serum or Plasm a potassium [moles/volum e] in serum or plasma potas sium Not Available Not Available 11/16/2024 15:26:47 05/16/20 24 05/19/2024 Compr [facility] johnny metab olic 1999 panel - Serum or Plasm a chloride [moles/volum e] in serum or plasma chlor olivia Not Available Not Available 11/16/2024 15:26:47 05/16/20 24 05/19/2024 Compr [facility] metab olic 1999 panel - Serum or Plasm a carbon dioxide, total [moles/volum e] in serum or plasma carbo n dioxi de Not Available Not Available 11/16/2024 15:26:47 05/16/20 24 05/19/2024 Compr [facility] INCIDE olic 1999 panel - Serum or Plasm a calcium [mass/volume ] in serum or plasma calci um Not Available Not Available 11/16/2024 15:26:47 05/16/20 24 05/19/2024 Compr [facility] INCIDE olic 1999 panel - Serum or Plasm a protein [mass/volume ] in serum or plasma prote in, total Not Available Not Available 11/16/2024 15:26:47 05/16/20 24 05/19/2024 Compr [facility] INCIDE olic 1999 panel - Serum or Plasm a albumin [mass/volume ] in serum or plasma album in Not Available Not Available 11/16/2024 15:26:47 05/16/20 24 05/19/2024 Compr [facility] INCIDE olic 1999 panel - Serum or Plasm a globulin [mass/volume ] in serum by calculation globu soto Not Available Not Available 11/16/2024 15:26:47 05/16/20 24 05/19/2024 Compr [facility] INCIDE olic 1999 panel - Serum or Plasm [...] 1999 panel - Serum or Plasm a alanine [...] 1996 panel - Serum or Plasm a cholesterol. [...] free Not Available Not Available 11/16/2024 15:26:47 12/16/19 25 12/14/2024 US, ed x, lindsay s, [facility] mity, compl ete No observ ation record ed. [facility] [address] [place], [address], 12/15/2024 18:00:40 Result Notes None recorded. Problems Name Problem SNOMED Code Status Onset Date Resolution Date Notes Provider Name and Address Organization Details Recorded Time Benign essential hypertensio n 7331666 Active 2023 Mariama Keenan null, [place] - [facility] 4 12:51:48 Body mass index 40+ - severely obese 833377452 Active 2023 Neelima Mistry [place] null, [place] - [facility] 4 08:57:50 Prediabetes 037307665 Active 2023 ALESHIA Ervin Attn: Dianna aguilar,[address] [facility], [place], [address], [place] - [facility] 4 09:04:37 Malignant tumor of prostate 541509173 Active 2023 ALESHIA Ervin Attn: Dianna aguilar,[address] [facility], [place], [address], [place] [facility] 4 09:04:39 Seasonal allergic rhinitis 723902251 Active 2023 ALESHIA Ervin Attn: Dianna aguilar,[address] [facility], [place], [address], [place] [facility] 4 09:04:42 Long-term drug therapy Active 2023 ALESHIA Ervin Attn: Accountspencer g,[address] [facility], [place], [address], [place] [facility] 4 09:04:43 Obesity 704535907 Active 2023 ALESHIA Ervin Attn: Dianna aguilar,[address] [facility], [place], [address], [place] [facility] 4 12:29:49 Family history of blood coagulation disorder 2929092320599 09 Active 2024 ALESHIA Ervin Attn: Dianna aguilar,[address] [facility], [place], [address], [place] [facility] 5 22:35:16 Bilateral lower limb edema 017344807 Active 2024 LAESHIA Ervin Attn: Dianna aguilar,[address] [facility], [place], [address], [place] [facility] 5 22:35:17 Problem Notes None recorded. Procedures Surgical History None recorded. Imaging Results Imaging Date Name Status LastModified by [facility] Details LastModified Time 12/14/2024 US, duplex, venous, lower extremity, complete completed [facility] [address] [place], [address], 12/15/2024 18:00:40 Procedure Notes None recorded. Medical Equipment None [...] Available benzonata te 100 mg capsule TAKE 1 CAPSULE ORAL ROUTE EVERY 8 HOURS NEEDED active Not Available Not Available No t Available diltiazem CD 120 mg capsule,e xtended release 24 hr TAKE 1 CAPSULE BY MOUTH EVERY DAY active Not Available Not Available No t Available monteluka st 10 mg tablet TAKE 1 TABLET BY MOUTH EVERY DAY 2024 active Not Available Not Available Not Avai lable albuterol sulfate HFA 90 mcg/actua tion aerosol inhaler INHALE 2 PUFFS INHALATI ON ROUTE 4 TIMES PER DAY active Not Available Not Available No t Available celecoxib 100 mg capsule TAKE 1 CAPSULE BY MOUTH TWICE A DAY active Not Available Not Available No t Available Diltiazem HCl CR 120 mg capsule, extended [...] Details Last Updated DateTime 4 16 /min 439032. 78 g 69 /min 97 % 97 % 48 kg/m2 180.34 cm 146 mm[Hg] 72 mm[Hg] Neelima Mistry MA [facility] 4 08:59:25 Date Recorded Systolic blood pressure Diastolic blood pressure Provider Name and Address Organization Details Last Updated DateTime 12/04/2023 138 mm[Hg] 70 mm[Hg] ALESHIA Ervin Attn: Accounting,[address] [place], [address], [facility] 12/04/2023 09:25:04 Date Recorded Body height Body mass index (BMI) Body weight Respiratory rate Oxygen saturation Oxygen saturation in Arterial blood by Pulse oximetry Heart rate Systolic blood pressure Diastolic blood pressure Provider Name and Address Organization Details Last Updated DateTime 4 180.34 cm 46.6 kg/m2 403500. 85 g 18 /min 96 % 96 % 60 /min 140 mm[Hg] 82 mm[Hg] Neelima Mistry MA [facility] 4 08:59:03 Date Recorded Systolic blood pressure Diastolic blood pressure Provider Name and Address Organization Details Last Updated DateTime 06/10/2024 140 mm[Hg] 80 mm[Hg] ALESHIA Ervin Attn: Accounting,[address] [place], [address], [facility] 06/10/2024 09:10:47 Date Recorded Body height Body mass index (BMI) Body weight Respiratory rate Oxygen saturation Oxygen saturation in Arterial blood by Pulse oximetry Heart rate Systolic blood pressure Diastolic blood pressure Provider Name and Address Organization Details Last Updated DateTime 5 180.34 cm 46.4 kg/m2 506337. 26 g 18 /min 97 % 97 % 67 /min 142 mm[Hg] 78 mm[Hg] ELISHA Zaragoza [facility] 5 17:22:33 Date Recorded Systolic blood pressure Diastolic blood pressure Provider Name and Address Organization Details Last Updated DateTime 12/07/2024 142 mm[Hg] 74 mm[Hg] ALESHIA Ervin Attn: Accounting,[address] [facility], [place], [address], [facility] 12/07/2024 17:45:56 Social History Question Answer Notes LastModified by Organizat ion Details LastModified Time Tobacco Smoking Status Never Smoker Neelima Mistry MA [facility], [facility] 12/04/2023 09:03:46 Do You Have An [...] Anxious, Or Unable To Sleep At Night)? [id number] Information not available 06/10/2024 Do You Use [...] Time Influenza, MDCK, quadrivalent, PF 1 completed ELISHA Zaragoza, [place] [facility] 12/07/2024 17:19:46 Influenza, MDCK, quadrivalent, PF 3 completed Neelima Mistry [place] [facility] 12/07/2024 17:19:46 zoster recombinant 3 completed Neelima M[place] [facility] 12/07/2024 17:19:46 MMR 0 completed Neelima Mistry [place] [facility] 12/07/2024 17:19:46 COVID-19, mRNA, LNP-S, PF, 100 mcg/0.5mL dose or 50 mcg/0.25mL dose 1 completed ELISHA [place] [facility] 12/07/2024 17:19:46 COVID-19, mRNA, LNP-S, PF, 30 mcg/0.3 mL dose 1 completed EL[place]HA [place] [facility] 12/07/2024 17:19:46 COVID-19, mRNA, LNP-S, PF, 30 mcg/0.3 mL dose 1 completed EL[place]HA [place] [facility] 12/07/2024 17:19:46 Pneumococcal conjugate PCV20, polysaccharide [id number] conjugate, adjuvant, PF 3 completed ELISHA [place] [facility] 12/07/2024 17:19:46 COVID-19, mRNA, LNP-S, bivalent, PF, 30 mcg/0.3 mL dose 2 completed ELISHA [place] [facility] 12/07/2024 17:19:46 COVID-19, mRNA, LNP-S, PF, ras-sucrose, 30 mcg/0.3 mL 3 completed ELISHA Zaragoza, [...] diluent reconstituted, 0.5 mL, PF 4 completed ELISHA [place] [facility] 12/07/2024 17:20:20 COVID-19, mRNA, LNP-S, PF, ras-sucrose, 30 mcg/0.3 mL 4 completed ELISHA Zaragoza, [place] - [facility] 12/07/2024 17:20:20 Tdap 4 completed ELISHA Zaragoza, [place] - [facility] 12/07/2024 17:20:20 Influenza, MDCK, trivalent, PF 4 completed ELISHA Zaragoza, [place] - [facility] 12/07/2024 17:20:20 Past Encounters Encounter ID Performer Location Encounter Start Date Encounter Closed Date Diagnosis/Indication Diagnosis SNOMED-CT Code Diagnosis ICD10 Code Diagnosis Note [id number] ALESHIA Ervin [facility] [address] [place] [address] 12/04/2023 08:50:44 12/04/2023 12:58:45 Benign essential hypertension 9090218 I10 stable on diltiazem CD 120mg daily. Long-term drug therapy 188927800 Z79.899 labs are not due until april , before his may appt. Prostate s pecific antigen above reference range 277347271 R97.20 following with Urology routinely, biopsies have been negative and PSA was up around 8 and is coming down some to 7.5 they are following closely. Cholesterol screening 27 1004774 Z13.220 Diabetes m ellitus screening 187537639 Z13.1 Thyroid di sorder screening 808276921 Z13.29 Seasonal a llergic rhinitis 326756647 J30.2 refill on allergy meds. spring and harvest seasons are the worst for him. medication s do help. [id number] ALESHIA Ervin [facility] [address] [place] [address] 06/10/2024 08:41:35 06/10/2024 12:54:21 Benign essential hypertension 6392989 I10 stable on diltiazem CD 120mg daily. Body mass index 40+ - severely obese 251102295 Z68.42 bmi 46.6 Seasonal a llergic rhinitis 054727323 J30.2 stable on allergy meds Long-term drug therapy 151329006 Z79.899 All labs are up-to-date Malignant tumor of prostate 585691871 C61 formally diagnosed with prostate cancer now. Getting ready to start 40 Radiation treatments . Prediabetes 140599954 R7 3.03 6%, stable with diet control Adult heal th examination 996323900 Z00.01 Annual wellness exam completed Obesity 134753381 E66.8 discussed healthy diet, exercise, controllin g carbohydra ricco and added sugars in the diet [id number] ALESHIA Ervin [facility] [address] [place] [address] 12/07/2024 16:56:58 12/07/2024 17:58:22 Long-term drug therapy 306707514 Z79.899 CBC and CMP due Body mass index 40+ - severely obese 644782520 Z68.42 bmi 46.6 Morbid obesity 309307192 E66.01 discussed healthy diet, exercise, controllin g carbohydra ricco and added sugars in the diet Benign ess ential hypertension 1697422 I10 stable on diltiazem CD 120mg daily. Refill sent Malignant tumor of prostate 822476237 C61 formally diagnosed with prostate cancer now. radiation completed early august. PSA recent 0.35, improvemen ts. Prediabetes 723097464 R7 3.03 6%, stable with diet control due for updated A1c lab Seasonal a llergic rhinitis 750896684 J30.2 stable on allergy meds Cholesterol screening 27 4206948 Z13.220 Fasting lipids are due Thyroid di sorder screening 505384193 Z13.29 Routine thyroid testing due Family his tory of blood coagulation disorder 5665733561 57190 Z83.2 Family history of a blood coagulatio n disorder that he is not sure exactly what we will check a full coagulatio n disorder panel Dyspnea 535069377 R06.00 Patient reports dyspnea on review of systems today. We will send for CT angiogram of the chest with contrast Bilateral lower limb edema 362066525 R60.0 Refer for ultrasound duplex of the lower extremitie s bilaterall y with increase in swelling Health Concerns Section Related Observation LastModified by Organization Detai ls LastModified Time None Recorded Concern Status LastModified by Organization Details LastModified Time None Recorded Advance Directives Directive Y: Payers Encounter Date Sequence Insurance Name Policy Number Policy Rojas Covered Member ID Rojas Member ID Guarantor Name 12/04/2023 1 DAHIANA [facility] Severiano Evans [id number] Sourav [place] 06/10/2024 1 [place] [id number] Sourav Evans [id number] Sourav [place] 12/07/2024 1 [place] [id number] Sourav Tillmanam [id number] Sourav [place] Notes Date Note Type Note Provider Name and Address Organization Details Recorded Time 4 text/html HypertensionReported bypatient.Notes:pt is taking medication and feeling fine. ALESHIA Ervin Attn: Accounting,[address] [place], [address], [facility] 12/04/2023 09:40:12 4 text/html HypertensionReported bypatient.Notes:pt is taking diltiazem CD 120 mg dailySinusitis/AllergyRep orted bypatient.Notes:Patient takes Flonase and antihistamine and Singulair Patient does have current prostate cancer that is being evaluated managed and treated with Urology. ALESHIA Ervin Attn: Accounting,[address] [place], [address], [facility] 06/28/2024 12:30:33 5 text/html HypertensionReported bypatient.Notes:pt is taking diltiazem CD 120 mg dailySinusitis/AllergyRep orted bypatient.Notes:Patient takes Flonase and antihistamine and Singulair Patient does have current prostate cancer that is being managed and treated with Urology. ALESHIA Ervin Attn: Accounting,[address] [place], [address], [facility] 12/27/2024 22:36:05
--- OUTSIDE RECORDS SUMMARY | 2025-01-11 07:21 | XMS_ITS | Clinical Summary ---
Author Organization [facility] Address [address] [place] [address] Care Team Providers Care Accounts Receivable Processor Name Role Phone Unavailable Primary Care Provider Unavailabl e Social History Tobacco Use Types Packs/Day Years Used Date Smoking Tobacco: Never Assessed Sex and Gender Information Value Date Recorded Sex Assigned at Not on file Legal Sex Male 10:17 PM [employer] Gender Identity Not on file Sexual Orientation Not on file Plan of Treatment Health Maintenance Due Date Last Done Comments Colorectal Cancer Screening Colonoscopy (10 Years) 1964 Annual Physical 02/27/1967 Hepatitis C 02/27/1982 DTaP, Tdap and Td Vaccines ( 1 - Tdap) 02/27/1983 Zoster Vaccines (1 of 2) 02/27/2014 COVID-19 Vaccine ( - 2023-2 5 season) 2024 RSV Immunization or 60+ Years (1 - 1-dose 75+ series) 02/27/2039 Meningococcal B Vaccine Aged Out No l onger eligible based on patient's age to complete this topic Meningococcal Vaccine Aged Out No natalia rhina eligible based on patient's age to complete this topic Pneumococcal Vaccine: Pediat rics (0 to 5 Years) and At-Risk Patients (6 to 49 Years) Aged Out No longer eligible b ased on patient's age to complete this topic RSV Immunizations Under 20 Months Aged Out No longer eligible based on patient's age to complete this topic
--- OUTSIDE RECORDS SUMMARY | 2025-01-11 07:21 | XMS_ITS | Data Portability ---
Author Organization [facility], Main Office Address [address] [place] [address] Assessment No assessment recorded. Plan of Treatment Reminders Order Date Submit Date Provider Last Modified By Organization Details Last Modified Time Details Appointments None recorded. Lab CMP, serum or plasma 2022 023 [employer] [facility], [address]es, [place], [address], 3 05:05:44 CBC w/ auto diff 2022 023 [employer] [facility], [address]es, [place], [address], 3 05:05:46 TSH + free T4, serum 2022 023 [employer] [facility], [address]es, [place], [address], 3 05:05:42 urinalysis, complete 2022 023 [employer] [facility], [address]es, [place], [address], 3 05:05:47 lipid panel, serum 2022 023 [employer] [facility], [place], [address], 3 05:05:43 HbA1c (hemoglobin A1c), blood 2022 023 [employer] [facility], [place], [address], 3 05:05:45 Referral None recorded. Procedures lexiscan cardiolite stress test (PROC) - Approved [id number] 01/08/2023- 02/06/20232022 023 [facility], [address], [address], [place], [address], 14:53:42 colonoscopy procedure (PROC) 2022 023 JORGE Cuco Weeks MD, [address], [address], [place], [address], 11:17:30 Surgeries None recorded. Imaging None recorded. Medication Orders tadalafil 20 mg tablet 2022 023 [facility]/Pharmacy #[id number], [address] [place], [address], 3 09:47:08 Wegov[facility] 0.25 mg/0.5 mL subcutaneou s pen injector [address]/Pharmacy #[id number], [address] [place], [address], 3 14:18:48 Patient TargetsNo targets recorded. Patient InstructionsNo instructions recorded. Reason for Referral None Reported. Results Created Date Observation Date Name Description Value Unit Range Abnormal Flag Note LastModifiedBy Organization Detail LastModifiedTime 08/12/20 21 08/13/2021 CBC (INCL UDES DIFF/ PLT) monocytes 6.5 % normal Not Available [facility] [address] [place], [address], 08/13/2021 12:45:15 08/12/20 21 08/13/2021 CBC (INCL UDES DIFF/ PLT) eosinophils 3.6 % normal Not Available [facility] [address] [place], [address], 08/13/2021 12:45:15 08/12/20 21 08/13/2021 CBC (INCL UDES DIFF/ PLT) basophils 0.9 % normal Not Available [address], [address], 08/13/2021 12:45:15 08/12/20 21 08/13/2021 CBC (INCL UDES DIFF/ PLT) white blood cell count 6.9 thous and/u L 3.8-10 .8 normal Not Available [address], [address], 08/13/2021 12:45:15 08/12/2008/13/2021 CBC (INCL UDES DIFF/ PLT) red blood cell count 4.89 ayde on/uL 4.20-5 .80 normal Not Available [address], [address], 08/13/2021 12:45:15 08/12/20 21 08/13/2021 CBC (INCL UDES DIFF/ PLT) hemoglobin 14.6 g/dL 13.2-1 7.1 normal Not Available [address], [address], 08/13/2021 12:45:15 08/12/20 21 08/13/2021 CBC (INCL UDES DIFF/ PLT) hematocrit 43.1 % 38.5-5 0.0 normal Not Available [address], [address], 08/13/2021 12:45:15 08/12/2008/13/2021 CBC (INCL UDES DIFF/ PLT) MCV 88.1 fL 80.0-1 00.0 normal Not Available [address], [address], 08/13/2021 12:45:15 08/12/20 21 08/13/2021 CBC (INCL UDES DIFF/ PLT) MCH 29.9 pg 27.0-3 3.0 normal Not Available [address], [address], 08/13/2021 12:45:15 08/12/20 21 08/13/2021 CBC (INCL UDES DIFF/ PLT) MCHC 33.9 g/dL 32.0-3 6.0 normal Not Available [address], [address], 08/13/2021 12:45:15 08/12/2008/13/2021 CBC (INCL UDES DIFF/ PLT) RDW 12.2 % 11.0-1 5.0 normal Not Available [address], [address], 08/13/2021 12:45:15 08/12/20 21 08/13/2021 CBC (INCL UDES DIFF/ PLT) platelet count 350 thous and/u L 140-40 0 normal Not Available [address], [address], 08/13/2021 12:45:15 08/12/2008/13/2021 CBC (INCL UDES DIFF/ PLT) MPV 9.9 fL 7.5-12 .5 normal Not Available [address], [address], 08/13/2021 12:45:15 08/12/20 21 08/13/2021 CBC (INCL UDES DIFF/ PLT) absolute neutrophils 4395 cells /uL 1500-7 800 normal Not Available [address], [address], 08/13/2021 12:45:15 08/12/20 21 08/13/2021 CBC (INCL UDES DIFF/ PLT) absolute lymphocytes 1746 cells /uL 850-39 00 normal Not Available [address], [address], 08/13/2021 12:45:15 08/12/20 21 08/13/2021 CBC (INCL UDES DIFF/ PLT) absolute monocytes 449 cells /uL 200-95 0 normal Not Available [address], [address], 08/13/2021 12:45:15 08/12/2008/13/2021 CBC (INCL UDES DIFF/ PLT) absolute eosinophils 248 cells /uL 15-500 normal Not Available [facility] [address] [address] [place], [address], 08/13/2021 12:45:15 08/12/2008/13/2021 CBC (INCL UDES DIFF/ PLT) absolute basophils 62 cells /uL 0-200 normal Not Available [address], [address], 08/13/2021 12:45:15 08/12/2008/13/2021 CBC (INCL UDES DIFF/ PLT) neutrophils 63.7 % normal Not Available [facility] [address], [address], 08/13/2021 12:45:15 08/12/2008/13/2021 CBC (INCL UDES DIFF/ PLT) lymphocytes 25.3 % normal Not Available [address], [address], 08/13/2021 12:45:15 08/12/2008/13/2021 HEMOG LOBIN A1C hemoglobin [...] diabe ricco for child yamilka. Not Available [address] [address] [place], [address], 08/13/2021 12:45:14 08/12/20 21 08/13/2021 COMPR EHENS JOVI METAB OLIC PANEL glucose 104 mg/dL 65-99 high Fasti ng refer ence inter angelina For someo ne witho ut known diabe ricco, a gluco se value betwe en 100 and 125 mg/dL is consi stent with predi abete s and shoul d be confi rmed with a follo w-up test. Not Available [address] [address] [place], [address], 08/13/2021 12:45:14 08/12/20 21 08/13/2021 COMPR EHENS JOVI METAB OLIC PANEL urea nitrogen (BUN) 14 mg/dL 7-25 normal Not Available [address] [address] [place], [address], 08/13/2021 12:45:14 08/12/20 21 08/13/2021 COMPR EHENS JOVI METAB OLIC PANEL potassium 4.4 mmol/ L 3.5-5. 3 normal Not Available [facility] [address] [address] [place], [address], 08/13/2021 12:45:14 08/12/2008/13/2021 COMPR EHENS JOVI METAB OLIC PANEL creatinine 0.80 mg/dL 0.70-1 .33 normal For patie nts >49 years of age, the refer ence limit for Creat inine is appro ximat brenden 13% highe r for peopl e ident ified as Afric an-Am nelson n. Not Available [facility] [address] [address] [place], [address], 08/13/2021 12:45:14 08/12/20 21 08/13/2021 COMPR EHENS JOVI METAB OLIC PANEL eGFR non-afr. bahraini 99 mL/mi n/1.7 3m2 > or = 60 normal Not Available [address] [address] [place], [address], 08/13/2021 12:45:14 08/12/20 21 08/13/2021 COMPR EHENS JOVI METAB OLIC PANEL eGFR 115 mL/mi n/1.7 3m2 > or = 60 normal Not Available [address] [address] [place], [address], 08/13/2021 12:45:14 08/12/20 21 08/13/2021 COMPR EHENS JOVI METAB OLIC PANEL BUN/creatini ne ratio not applic able (calc ) 6-22 Not Available [address] [address] [place], [address], 08/13/2021 12:45:14 08/12/20 21 08/13/2021 COMPR EHENS JOVI METAB OLIC PANEL sodium 138 mmol/ L 135-14 6 normal Not Available [address] [address] [place], [address], 08/13/2021 12:45:14 08/12/20 21 08/13/2021 COMPR EHENS JOVI METAB OLIC PANEL chloride 103 mmol/ L 98-110 normal Not Available [address] [address] [place], [address], 08/13/2021 12:45:14 08/12/20 21 08/13/2021 COMPR EHENS JOVI METAB OLIC PANEL carbon dioxide 27 mmol/ L 20-32 normal Not Available [address] [address] [place], [address], 08/13/2021 12:45:14 08/12/20 21 08/13/2021 COMPR EHENS JOVI METAB OLIC PANEL calcium 9.1 mg/dL 8.6-10 .3 normal Not Available [address], [address], 08/13/2021 12:45:14 08/12/20 21 08/13/2021 COMPR EHENS JOVI METAB OLIC PANEL protein, total 6.9 g/dL 6.1-8. 1 normal Not Available [address], [address], 08/13/2021 12:45:14 08/12/2008/13/2021 COMPR EHENS JOVI METAB OLIC PANEL albumin 4.4 g/dL 3.6-5. 1 normal Not Available [address], [address], 08/13/2021 12:45:14 08/12/20 21 08/13/2021 COMPR EHENS JOVI METAB OLIC PANEL globulin 2.5 g/dL_ (calc ) 1.9-3. 7 normal Not Available [address], [address], 08/13/2021 12:45:14 08/12/20 21 08/13/2021 COMPR EHENS JOVI METAB OLIC PANEL albumin/glob ulin ratio 1.8 (calc ) 1.0-2. 5 normal Not Available [address], [address], 08/13/2021 12:45:14 08/12/20 21 08/13/2021 COMPR EHENS JOVI METAB OLIC PANEL bilirubin, total 0.6 mg/dL 0.2-1. 2 normal Not Available [address], [address], 08/13/2021 12:45:14 08/12/20 21 08/13/2021 COMPR EHENS JOVI METAB OLIC PANEL alkaline phosphatase 69 U/L 35-144 normal Not Available [facility] [address] [place], [address], 08/13/2021 12:45:14 08/12/20 21 08/13/2021 COMPR EHENS JOVI METAB OLIC PANEL AST 24 U/L 10-35 normal Not Available [address] [address] [place], [address], 08/13/2021 12:45:14 08/12/20 21 08/13/2021 COMPR EHENS JOVI METAB OLIC PANEL ALT 26 U/L 9-46 normal Not Available [address] [address] [place], [address], 08/13/2021 12:45:14 08/12/20 21 08/13/2021 LIPID PANEL [...] 2061- 2068 (http ://ed ucati on.Qu [employer]ida [employer]. com/f aq/FA Q164) Not Available [facility] [address] [place], [address], 08/13/2021 12:45:13 08/12/20 21 08/13/2021 LIPID PANEL WITH RATIO S cholesterol, total 172 mg/dL <200 normal Not Available [address] [address] [place], [address], 08/13/2021 12:45:13 08/12/20 21 08/13/2021 LIPID PANEL WITH RATIO S HDL cholesterol 48 mg/dL > or = 40 normal Not Available [address] [address] [place], [address], 08/13/2021 12:45:13 08/12/20 21 08/13/2021 LIPID PANEL WITH RATIO S triglyceride s 68 mg/dL <150 normal Not Available [address] [address] [place], [address], 08/13/2021 12:45:13 08/12/20 21 08/13/2021 LIPID PANEL WITH RATIO S chol/HDLC ratio 3.6 (calc ) <5.0 normal Not Available [address] [address] [place], [address], 08/13/2021 12:45:13 08/12/20 21 08/13/2021 LIPID PANEL WITH RATIO S LDL/HDL ratio 2.3 (calc ) Below [place] Risk: <2.28 [place] Risk: 2.29- 4.90 Moder ate Risk: 4.91- 7.12 High Risk: >7.13 Not Available [address] [address] [place], [address], 08/13/2021 12:45:13 08/12/20 21 08/13/2021 LIPID PANEL WITH RATIO S non HDL cholesterol 124 mg/dL _(girma c) <130 normal For patie nts with diabe ricco plus 1 major ASCVD risk facto r, treat ing to a non-H DL-C goal of <100 mg/dL (LDL- C of <70 mg/dL ) is mami klein optio n. Not Available [address] [address] [place], [address], 08/13/2021 12:45:13 08/04/20 22 08/06/2022 CBC (INCL UDES DIFF/ PLT) white blood cell count 6.6 thous and/u L 3.8-10 .8 normal Not Available [address], [address], 08/06/2022 12:56:17 08/04/20 22 08/06/2022 CBC (INCL UDES DIFF/ PLT) red blood cell count 4.77 ayde on/uL 4.20-5 .80 normal Not Available [address], [address], 08/06/2022 12:56:17 08/04/20 22 08/06/2022 CBC (INCL UDES DIFF/ PLT) hemoglobin 14.3 g/dL 13.2-1 7.1 normal Not Available [address], [address], 08/06/2022 12:56:17 08/04/20 22 08/06/2022 CBC (INCL UDES DIFF/ PLT) hematocrit 42.3 % 38.5-5 0.0 normal Not Available [address], [address], 08/06/2022 12:56:17 08/04/20 22 08/06/2022 CBC (INCL UDES DIFF/ PLT) MCV 88.7 fL 80.0-1 00.0 normal Not Available [address], [address], 08/06/2022 12:56:17 08/04/20 22 08/06/2022 CBC (INCL UDES DIFF/ PLT) MCH 30.0 pg 27.0-3 3.0 normal Not Available [address], [address], 08/06/2022 12:56:17 08/04/20 22 08/06/2022 CBC (INCL UDES DIFF/ PLT) MCHC 33.8 g/dL 32.0-3 6.0 normal Not Available [address], [address], 08/06/2022 12:56:17 08/04/20 22 08/06/2022 CBC (INCL UDES DIFF/ PLT) RDW 12.0 % 11.0-1 5.0 normal Not Available [address], [address], 08/06/2022 12:56:17 08/04/20 22 08/06/2022 CBC (INCL UDES DIFF/ PLT) platelet count 321 thous and/u L 140-40 0 normal Not Available [address], [address], 08/06/2022 12:56:17 08/04/20 22 08/06/2022 CBC (INCL UDES DIFF/ PLT) MPV 10.3 fL 7.5-12 .5 normal Not Available [address], [address], 08/06/2022 12:56:17 08/04/20 22 08/06/2022 CBC (INCL UDES DIFF/ PLT) absolute neutrophils 4072 cells /uL 1500-7 800 normal Not Available [address], [address], 08/06/2022 12:56:17 08/04/20 22 08/06/2022 CBC (INCL UDES DIFF/ PLT) absolute lymphocytes 1762 cells /uL 850-39 00 normal Not Available [address], [address], 08/06/2022 12:56:17 08/04/20 22 08/06/2022 CBC (INCL UDES DIFF/ PLT) absolute monocytes 515 cells /uL 200-95 0 normal Not Available [address], [address], 08/06/2022 12:56:17 08/04/20 22 08/06/2022 CBC (INCL UDES DIFF/ PLT) absolute eosinophils 211 cells /uL 15-500 normal Not Available [address], [address], 08/06/2022 12:56:17 08/04/20 22 08/06/2022 CBC (INCL UDES DIFF/ PLT) absolute basophils 40 cells /uL 0-200 normal Not Available [facility] [address], [address], 08/06/2022 12:56:17 08/04/20 22 08/06/2022 CBC (INCL UDES DIFF/ PLT) neutrophils 61.7 % normal Not Available [address], [address], 08/06/2022 12:56:17 08/04/20 22 08/06/2022 CBC (INCL UDES DIFF/ PLT) lymphocytes 26.7 % normal Not Available [address], [address], 08/06/2022 12:56:17 08/04/20 22 08/06/2022 CBC (INCL UDES DIFF/ PLT) monocytes 7.8 % normal Not Available [address], [address], 08/06/2022 12:56:17 08/04/20 22 08/06/2022 CBC (INCL UDES DIFF/ PLT) eosinophils 3.2 % normal Not Available [address], [address], 08/06/2022 12:56:17 08/04/20 22 08/06/2022 CBC (INCL UDES DIFF/ PLT) basophils 0.6 % normal Not Available [address], [address], 08/06/2022 12:56:17 08/04/20 22 08/06/2022 HEMOG LOBIN [...] diabe ricco for child yamilka. Not Available [facility] [address] [place], [address], 08/06/2022 12:56:16 08/04/20 22 08/06/2022 COMPR EHENS [...] kdoqi /gfr% 5Fcal culat or Not Available [facility] [address] [place], [address], 08/06/2022 12:56:16 08/04/20 22 08/06/2022 COMPR EHENS JOVI METAB OLIC PANEL glucose 93 mg/dL 65-99 normal Fasti ng refer ence inter angelina Not Available [facility] [address] [place], [address], 08/06/2022 12:56:16 08/04/20 22 08/06/2022 COMPR EHENS JOVI METAB OLIC PANEL urea nitrogen (BUN) 17 mg/dL 7-25 normal Not Available [address] [address] [place], [address], 08/06/2022 12:56:16 08/04/20 22 08/06/2022 COMPR EHENS JOVI METAB OLIC PANEL creatinine 0.77 mg/dL 0.70-1 .30 normal Not Available [address], [address], 08/06/2022 12:56:16 08/04/20 22 08/06/2022 COMPR EHENS JOVI METAB OLIC PANEL BUN/creatini ne ratio not applic able (calc ) 6-22 Not Available [address], [address], 08/06/2022 12:56:16 08/04/20 22 08/06/2022 COMPR EHENS JOVI METAB OLIC PANEL sodium 138 mmol/ L 135-14 6 normal Not Available [address], [address], 08/06/2022 12:56:16 08/04/20 22 08/06/2022 COMPR EHENS JOVI METAB OLIC PANEL potassium 4.7 mmol/ L 3.5-5. 3 normal Not Available [address], [address], 08/06/2022 12:56:16 08/04/20 22 08/06/2022 COMPR EHENS JOVI METAB OLIC PANEL chloride 104 mmol/ L 98-110 normal Not Available [address], [address], 08/06/2022 12:56:16 08/04/20 22 08/06/2022 COMPR EHENS JOVI METAB OLIC PANEL carbon dioxide 27 mmol/ L 20-32 normal Not Available [address], [address], 08/06/2022 12:56:16 08/04/20 22 08/06/2022 COMPR EHENS JOVI METAB OLIC PANEL calcium 9.2 mg/dL 8.6-10 .3 normal Not Available [address], [address], 08/06/2022 12:56:16 08/04/20 22 08/06/2022 COMPR EHENS JOVI METAB OLIC PANEL protein, total 6.8 g/dL 6.1-8. 1 normal Not Available [address], [address], 08/06/2022 12:56:16 08/04/20 22 08/06/2022 COMPR EHENS JOVI METAB OLIC PANEL albumin 4.1 g/dL 3.6-5. 1 normal Not Available [address], [address], 08/06/2022 12:56:16 08/04/20 22 08/06/2022 COMPR EHENS JOVI METAB OLIC PANEL globulin 2.7 g/dL_ (calc ) 1.9-3. 7 normal Not Available [address], [address], 08/06/2022 12:56:16 08/04/20 22 08/06/2022 COMPR EHENS JOVI METAB OLIC PANEL albumin/glob ulin ratio 1.5 (calc ) 1.0-2. 5 normal Not Available [address], [address], 08/06/2022 12:56:16 08/04/20 22 08/06/2022 COMPR EHENS JOVI METAB OLIC PANEL bilirubin, total 0.6 mg/dL 0.2-1. 2 normal Not Available [address], [address], 08/06/2022 12:56:16 08/04/20 22 08/06/2022 COMPR EHENS JOVI METAB OLIC PANEL alkaline phosphatase 73 U/L 35-144 normal Not Available [facility] [address] [place], [address], 08/06/2022 12:56:16 08/04/20 22 08/06/2022 COMPR EHENS JOVI METAB OLIC PANEL AST 18 U/L 10-35 normal Not Available [facility] [address] [place], [address], 08/06/2022 12:56:16 08/04/20 22 08/06/2022 COMPR EHENS JOVI METAB OLIC PANEL ALT 22 U/L 9-46 normal Not Available [facility] [place] [address] [place], [address], 08/06/2022 12:56:16 08/04/20 22 08/06/2022 LIPID PANEL [...] 2068 (http ://ed ucati on.Qu Elida george [employer]. com/f aq/FA Q164) Not Available [facility] [address] [place], [address], 08/06/2022 12:56:15 08/04/20 22 08/06/2022 LIPID PANEL WITH RATIO S cholesterol, total 181 mg/dL <200 normal Not Available [facility] [address] [place], [address], 08/06/2022 12:56:15 08/04/20 22 08/06/2022 LIPID PANEL WITH RATIO S HDL cholesterol 50 mg/dL > or = 40 normal Not Available [address], [address], 08/06/2022 12:56:15 08/04/20 22 08/06/2022 LIPID PANEL WITH RATIO S triglyceride s 70 mg/dL <150 normal Not Available [address], [address], 08/06/2022 12:56:15 08/04/20 22 08/06/2022 LIPID PANEL WITH RATIO S chol/HDLC ratio 3.6 (calc ) <5.0 normal Not Available [address], [address], 08/06/2022 12:56:15 08/04/20 22 08/06/2022 LIPID PANEL WITH RATIO S LDL/HDL ratio 2.3 (calc ) Below [place] Risk: <2.28 [place] Risk: 2.29- 4.90 Moder ate Risk: 4.91- 7.12 High Risk: >7.13 Not Available [address], [address], 08/06/2022 12:56:15 08/04/20 22 08/06/2022 LIPID PANEL WITH RATIO S non HDL cholesterol 131 mg/dL _(girma c) <130 high For patie nts with diabe ricco plus 1 major ASCVD risk facto r, treat ing to a non-H DL-C goal of <100 mg/dL (LDL- C of <70 mg/dL ) is consi ligia horton pemaurice c optio n. Not Available [address], [address], 08/06/2022 12:56:15 08/04/20 22 08/06/2022 TSH+F REE T4 TSH 1.84 mIU/L 0.40-4 .50 normal Not Available [address] [place], [address], 08/06/2022 12:56:14 08/04/2008/06/2022 TSH+F REE T4 T4, free 1.0 NG/dL 0.8-1. 8 normal Not Available [address], [address], 08/06/2022 12:56:14 06/12/2006/14/2023 TSH+F REE T4 TSH 2.20 mIU/L 0.40-4 .50 normal Not Available [address], [address], 06/14/2023 05:05:42 06/12/20 23 06/14/2023 TSH+F REE T4 T4, free 1.0 NG/dL 0.8-1. 8 normal Not Available [address], [address], 06/14/2023 05:05:42 06/12/20 23 06/14/2023 LIPID PANEL WITH RATIO S cholesterol, total 198 mg/dL <200 normal Not Available [address], [address], 06/14/2023 05:05:43 06/12/20 23 06/14/2023 LIPID PANEL WITH RATIO S HDL cholesterol 55 mg/dL > or = 40 normal Not Available [address], [address], 06/14/2023 05:05:43 06/12/20 23 06/14/2023 LIPID PANEL WITH RATIO S triglyceride s 114 mg/dL <150 normal Not Available [address], [address], 06/14/2023 05:05:43 06/12/20 23 06/14/2023 LIPID PANEL WITH RATIO S LDL-choleste rol 121 mg/dL _(girma c) high Refer ence range : <100 Cynthia able range <100 mg/dL for prima ry preve ntion ; <70 mg/dL for patie nts with CHD or diabe tic patie nts with > or = 2 CHD risk facto rs. LDL-C is now calcu lated using the [facility] kins calcu silvina gordon, which is a valid ated novel metho d provi ding rosalba r accur acy than the Fried gerry equat ion in the estim ation of LDL-C . Lily gordon SS et al. JIMENA. 2013; 310(1 9): 2061- 2068 (http ://ed ucati on.Qu estDi [employer]. com/f aq/FA Q164) Not Available [facility] [address], [address], 06/14/2023 05:05:43 06/12/20 23 06/14/2023 LIPID PANEL WITH RATIO S chol/HDLC ratio 3.6 (calc ) <5.0 normal Not Available [facility] [address], [address], 06/14/2023 05:05:43 06/12/20 23 06/14/2023 LIPID PANEL WITH RATIO S LDL/HDL ratio 2.2 (calc ) [place] Risk: <2.28 [place] Risk: 2.29- 4.90 Moder ate Risk: 4.91- 7.12 High Risk: >7.13 Not Available [facility] [address], [address], 06/14/2023 05:05:43 06/12/20 23 06/14/2023 LIPID PANEL WITH RATIO S non HDL cholesterol 143 mg/dL _(girma c) <130 high For patie nts with diabe ricco plus 1 major ASCVD risk facto r, treat ing to a non-H DL-C goal of <100 mg/dL (LDL- C of <70 mg/dL ) is consi rond a sol pemaurice c optio n. Not Available [facility] [address], [address], 06/14/2023 05:05:43 06/12/20 23 06/14/2023 COMPR EHENS JOVI METAB OLIC PANEL glucose 94 mg/dL 65-99 normal Fasti ng refer ence inter angelina Not Available [address], [address], 06/14/2023 05:05:44 06/12/20 23 06/14/2023 COMPR EHENS JOVI METAB OLIC PANEL urea nitrogen (BUN) 14 mg/dL 7-25 normal Not Available [address], [address], 06/14/2023 05:05:44 06/12/20 23 06/14/2023 COMPR EHENS JOVI METAB OLIC PANEL creatinine 0.77 mg/dL 0.70-1 .30 normal Not Available [address], [address], 06/14/2023 05:05:44 06/12/20 23 06/14/2023 COMPR EHENS JOVI METAB OLIC PANEL eGFR 103 mL/mi n/1.7 3m2 > or = 60 normal Not Available [address], [address], 06/14/2023 05:05:44 06/12/20 23 06/14/2023 COMPR EHENS JOVI METAB OLIC PANEL BUN/creatini ne ratio SEE NOTE: (calc ) 6-22 Not Repor luis enrique: BUN and Creat inine are withi n refer ence range . Not Available [address], [address], 06/14/2023 05:05:44 06/12/20 23 06/14/2023 COMPR EHENS JOVI METAB OLIC PANEL sodium 138 mmol/ L 135-14 6 normal Not Available [address], [address], 06/14/2023 05:05:44 09/13/20 23 06/14/2023 COMPR EHENS JOVI METAB OLIC PANEL potassium 4.3 mmol/ L 3.5-5. 3 normal Not Available [address], [address], 06/14/2023 05:05:44 06/12/20 23 06/14/2023 COMPR EHENS JOVI METAB OLIC PANEL chloride 101 mmol/ L 98-110 normal Not Available [address], [address], 06/14/2023 05:05:44 06/12/20 23 06/14/2023 COMPR EHENS JOVI METAB OLIC PANEL carbon dioxide 29 mmol/ L 20-32 normal Not Available [address], [address], 06/14/2023 05:05:44 06/12/20 23 06/14/2023 COMPR EHENS JOVI METAB OLIC PANEL calcium 9.2 mg/dL 8.6-10 .3 normal Not Available [address], [address], 06/14/2023 05:05:44 06/12/20 23 06/14/2023 COMPR EHENS JOVI METAB OLIC PANEL protein, total 7.0 g/dL 6.1-8. 1 normal Not Available [address], [address], 06/14/2023 05:05:44 06/12/20 23 06/14/2023 COMPR EHENS JOVI METAB OLIC PANEL albumin 4.4 g/dL 3.6-5. 1 normal Not Available [address], [address], 06/14/2023 05:05:44 06/12/20 23 06/14/2023 COMPR EHENS JOVI METAB OLIC PANEL globulin 2.6 g/dL_ (calc ) 1.9-3. 7 normal Not Available [address], [address], 06/14/2023 05:05:44 06/12/2006/14/2023 COMPR EHENS JOVI METAB OLIC PANEL albumin/glob ulin ratio 1.7 (calc ) 1.0-2. 5 normal Not Available [address], [address], 06/14/2023 05:05:44 06/12/2006/14/2023 COMPR EHENS JOVI METAB OLIC PANEL bilirubin, total 0.5 mg/dL 0.2-1. 2 normal Not Available [address], [address], 06/14/2023 05:05:44 06/12/2006/14/2023 COMPR EHENS JOVI METAB OLIC PANEL alkaline phosphatase 82 U/L 35-144 normal Not Available [address], [address], 06/14/2023 05:05:44 06/12/2006/14/2023 COMPR EHENS JOVI METAB OLIC PANEL AST 16 U/L 10-35 normal Not Available [address], [address], 06/14/2023 05:05:44 06/12/2006/14/2023 COMPR EHENS JOVI METAB OLIC PANEL ALT 20 U/L 9-46 normal Not Available [address], [address], 06/14/2023 05:05:44 06/12/2006/14/2023 HEMOG LOBIN A1C hemoglobin [...] diabe ricco for child yamilka. Not Available [facility] [address] [place], [address], 06/14/2023 05:05:45 06/12/2006/14/2023 CBC (INCL UDES DIFF/ PLT) white blood cell count 7.2 thous and/u L 3.8-10 .8 normal Not Available [facility] [address] [address] [place], [address], 06/14/2023 05:05:46 06/12/2006/14/2023 CBC (INCL UDES DIFF/ PLT) red blood cell count 4.79 ayde on/uL 4.20-5 .80 normal Not Available [facility] [address] [address] [place], [address], 06/14/2023 05:05:46 06/12/2006/14/2023 CBC (INCL UDES DIFF/ PLT) hemoglobin 14.7 g/dL 13.2-1 7.1 normal Not Available [facility] [address] [address] [place], [address], 06/14/2023 05:05:46 06/12/2006/14/2023 CBC (INCL UDES DIFF/ PLT) hematocrit 43.7 % 38.5-5 0.0 normal Not Available [facility] [address] [address] [place], [address], 06/14/2023 05:05:46 06/12/20 23 06/14/2023 CBC (INCL UDES DIFF/ PLT) MCV 91.2 fL 80.0-1 00.0 normal Not Available [address], [address], 06/14/2023 05:05:46 06/12/20 23 06/14/2023 CBC (INCL UDES DIFF/ PLT) MCH 30.7 pg 27.0-3 3.0 normal Not Available [address], [address], 06/14/2023 05:05:46 06/12/20 23 06/14/2023 CBC (INCL UDES DIFF/ PLT) MCHC 33.6 g/dL 32.0-3 6.0 normal Not Available [address], [address], 06/14/2023 05:05:46 06/12/20 23 06/14/2023 CBC (INCL UDES DIFF/ PLT) RDW 12.6 % 11.0-1 5.0 normal Not Available [address], [address], 06/14/2023 05:05:46 06/12/20 23 06/14/2023 CBC (INCL UDES DIFF/ PLT) platelet count 301 thous and/u L 140-40 0 normal Not Available [address], [address], 06/14/2023 05:05:46 06/12/20 23 06/14/2023 CBC (INCL UDES DIFF/ PLT) MPV 9.6 fL 7.5-12 .5 normal Not Available [address], [address], 06/14/2023 05:05:46 06/12/20 23 06/14/2023 CBC (INCL UDES DIFF/ PLT) absolute neutrophils 4759 cells /uL 1500-7 800 normal Not Available [address], [address], 06/14/2023 05:05:46 06/12/20 23 06/14/2023 CBC (INCL UDES DIFF/ PLT) absolute lymphocytes 1620 cells /uL 850-39 00 normal Not Available [address], [address], 06/14/2023 05:05:46 06/12/20 23 06/14/2023 CBC (INCL UDES DIFF/ PLT) absolute monocytes 576 cells /uL 200-95 0 normal Not Available [address], [address], 06/14/2023 05:05:46 06/12/20 23 06/14/2023 CBC (INCL UDES DIFF/ PLT) absolute eosinophils 202 cells /uL 15-500 normal Not Available [address], [address], 06/14/2023 05:05:46 06/12/20 23 06/14/2023 CBC (INCL UDES DIFF/ PLT) absolute basophils 43 cells /uL 0-200 normal Not Available [address], [address], 06/14/2023 05:05:46 06/12/20 23 06/14/2023 CBC (INCL UDES DIFF/ PLT) neutrophils 66.1 % normal Not Available [address], [address], 06/14/2023 05:05:46 06/12/2006/14/2023 CBC (INCL UDES DIFF/ PLT) lymphocytes 22.5 % normal Not Available [address], [address], 06/14/2023 05:05:46 06/12/20 23 06/14/2023 CBC (INCL UDES DIFF/ PLT) monocytes 8.0 % normal Not Available [facility] [address], [address], 06/14/2023 05:05:46 06/12/20 23 06/14/2023 CBC (INCL UDES DIFF/ PLT) eosinophils 2.8 % normal Not Available [facility] [address], [address], 06/14/2023 05:05:46 06/12/2006/14/2023 CBC (INCL UDES DIFF/ PLT) basophils 0.6 % normal Not Available [facility] [address], [address], 06/14/2023 05:05:46 06/12/2006/14/2023 URINA LYSIS , COMPL ETE color YELLOW yellow normal Not Available [facility] [address], [address], 06/14/2023 05:05:47 06/12/2006/14/2023 URINA LYSIS , COMPL ETE appearance CLEAR clear normal Not Available [address], [address], 06/14/2023 05:05:47 06/12/2006/14/2023 URINA LYSIS , COMPL ETE specific gravity 1.013 1.001- 1.035 normal Not Available [facility] [address], [address], 06/14/2023 05:05:47 06/12/2006/14/2023 URINA LYSIS , COMPL ETE pH 7.0 5.0-8. 0 normal Not Available [address], [address], 06/14/2023 05:05:47 06/12/2006/14/2023 URINA LYSIS , COMPL ETE glucose NEGATI VE negati ve normal Not Available [facility] [address], [place], [address], 06/14/2023 05:05:47 06/12/20 23 06/14/2023 URINA LYSIS , COMPL ETE bilirubin NEGATI VE negati ve normal Not Available [facility] [address] [address] [place], [address], 06/14/2023 05:05:47 06/12/2006/14/2023 URINA LYSIS , COMPL ETE ketones NEGATI VE negati ve normal Not Available [facility] [address] [address] [place], [address], 06/14/2023 05:05:47 06/12/2006/14/2023 URINA LYSIS , COMPL ETE occult blood NEGATI VE negati ve normal Not Available [address], [address], 06/14/2023 05:05:47 06/12/20 23 06/14/2023 URINA LYSIS , COMPL ETE protein NEGATI VE negati ve normal Not Available [address], [address], 06/14/2023 05:05:47 06/12/2006/14/2023 URINA LYSIS , COMPL ETE nitrite NEGATI VE negati ve normal Not Available [address], [address], 06/14/2023 05:05:47 06/12/2006/14/2023 URINA LYSIS , COMPL ETE leukocyte esterase NEGATI VE negati ve normal Not Available [address], [address], 06/14/2023 05:05:47 06/12/2006/14/2023 URINA LYSIS , COMPL ETE WBC NONE SEEN /hpf < or = 5 normal Not Available [address], [address], 06/14/2023 05:05:47 06/12/20 23 06/14/2023 URINA LYSIS , COMPL ETE RBC NONE SEEN /hpf < or = 2 normal Not Available [address] [address] [place], [address], 06/14/2023 05:05:47 06/12/20 23 06/14/2023 URINA LYSIS , COMPL ETE squamous epithelial cells NONE SEEN /hpf < or = 5 normal Not Available [facility] [address] [address] [place], [address], 06/14/2023 05:05:47 06/12/2006/14/2023 URINA LYSIS , COMPL ETE bacteria NONE SEEN /hpf none seen normal Not Available [address], [address], 06/14/2023 05:05:47 06/12/20 23 06/14/2023 URINA LYSIS , COMPL ETE hyaline cast NONE SEEN /lpf none seen normal Not Available [address], [address], 06/14/2023 05:05:47 06/12/2006/14/2023 EXTRA SPECI MEN extra tube received An extra speci men was recei luis daniel with no test reque sted. The [facility] in case addit ional testi ng is neede allie Major e call the [facility] for sina levine . Not Available [facility] [address], [address], 06/14/2023 05:05:48 06/12/2006/14/2023 EXTRA SPECI MEN specimen type received Urine Not Available [address], [address], 06/14/2023 05:05:48 06/12/20 06/14/2023 CULTU RE, URINE , ROUTI NE culture, urine, routine CULTU RE, URINE , ROUTI NE Micro Numbe r: [id number] Test Statu s: Final Speci men [...] or addit ional testi ng. Not Available [address] [address] [place], [address], 06/14/2023 05:05:48 05/16/20 24 05/19/2024 TSH+F REE T4 TSH 1.48 mIU/L 0.40-4 .50 normal Not Available [facility] [address] [address] [place], [address], 05/19/2024 03:49:49 05/16/2005/19/2024 TSH+F REE T4 T4, free 1.2 NG/dL 0.8-1. 8 normal Not Available [facility] [address] [address] [place], [address], 05/19/2024 03:49:49 05/16/20 24 05/19/2024 LIPID PANEL WITH RATIO S cholesterol, total 177 mg/dL <200 normal Not Available [facility] [address] [address] [place], [address], 05/19/2024 03:49:49 05/16/20 24 05/19/2024 LIPID PANEL WITH RATIO S HDL cholesterol 51 mg/dL > or = 40 normal Not Available [facility] [address] [address] [place], [address], 05/19/2024 03:49:49 05/16/20 24 05/19/2024 LIPID PANEL WITH RATIO S triglyceride s 60 mg/dL <150 normal Not Available [facility] [address] [address] [place], [address], 05/19/2024 03:49:49 05/16/20 24 05/19/2024 LIPID PANEL [...] 2068 (http ://ed ucati on.Qu Elida george [employer]. com/f aq/FA Q164) Not Available [facility] [address] [place], [address], 05/19/2024 03:49:49 05/16/20 24 05/19/2024 LIPID PANEL WITH RATIO S chol/HDLC ratio 3.5 (calc ) <5.0 normal Not Available [facility] [address] [place], [address], 05/19/2024 03:49:49 05/16/20 05/19/2024 LIPID PANEL WITH RATIO S LDL/HDL ratio 2.2 (calc ) Below [place] Risk: <2.28 [place] Risk: 2.29- 4.90 Moder ate Risk: 4.91- 7.12 High Risk: >7.13 Not Available [address], [address], 05/19/2024 03:49:49 05/16/20 24 05/19/2024 LIPID PANEL WITH RATIO S non HDL cholesterol 126 mg/dL _(girma c) <130 normal For patie nts with diabe ricco plus 1 major ASCVD risk facto r, treat ing to a non-H DL-C goal of <100 mg/dL (LDL- C of <70 mg/dL ) is consi dered a thera peuti c optio n. Not Available [address], [address], 05/19/2024 03:49:49 05/16/20 24 05/19/2024 COMPR EHENS JOVI METAB OLIC PANEL glucose 109 mg/dL 65-99 high Fasti ng refer ence inter angelina For someo ne witho ut known diabe ricco, a gluco se value betwe en 100 and 125 mg/dL is consi stent with predi abete s and shoul d be confi rmed with a follo w-up test. Not Available [address], [address], 05/19/2024 03:49:50 05/16/20 24 05/19/2024 COMPR EHENS JOVI METAB OLIC PANEL urea nitrogen (BUN) 13 mg/dL 7-25 normal Not Available [address], [address], 05/19/2024 03:49:50 05/16/20 24 05/19/2024 COMPR EHENS JOVI METAB OLIC PANEL creatinine 0.82 mg/dL 0.70-1 .35 normal Not Available [facility] [address] [place], [address], 05/19/2024 03:49:50 05/16/20 24 05/19/2024 COMPR EHENS JOVI METAB OLIC PANEL eGFR 101 mL/mi n/1.7 3m2 > or = 60 normal Not Available [address], [address], 05/19/2024 03:49:50 05/16/20 24 05/19/2024 COMPR EHENS JOVI METAB OLIC PANEL BUN/creatini ne ratio SEE NOTE: (calc ) 6-22 Not Repor luis enrique: BUN and Creat inine are withi n refer ence range . Not Available [address], [address], 05/19/2024 03:49:50 05/16/20 24 05/19/2024 COMPR EHENS JOVI METAB OLIC PANEL sodium 138 mmol/ L 135-14 6 normal Not Available [address], [address], 05/19/2024 03:49:50 05/16/20 24 05/19/2024 COMPR EHENS JOVI METAB OLIC PANEL potassium 4.6 mmol/ L 3.5-5. 3 normal Not Available [address], [address], 05/19/2024 03:49:50 05/16/20 24 05/19/2024 COMPR EHENS JOVI METAB OLIC PANEL chloride 102 mmol/ L 98-110 normal Not Available [address], [address], 05/19/2024 03:49:50 05/16/20 24 05/19/2024 COMPR EHENS JOVI METAB OLIC PANEL carbon dioxide 29 mmol/ L 20-32 normal Not Available [address], [address], 05/19/2024 03:49:50 05/16/20 24 05/19/2024 COMPR EHENS JOVI METAB OLIC PANEL calcium 9.2 mg/dL 8.6-10 .3 normal Not Available [address], [address], 05/19/2024 03:49:50 05/16/20 24 05/19/2024 COMPR EHENS JOVI METAB OLIC PANEL protein, total 7.0 g/dL 6.1-8. 1 normal Not Available [address], [address], 05/19/2024 03:49:50 05/16/2005/19/2024 COMPR EHENS JOVI METAB OLIC PANEL albumin 4.2 g/dL 3.6-5. 1 normal Not Available [address], [address], 05/19/2024 03:49:50 05/16/20 24 05/19/2024 COMPR EHENS JOVI METAB OLIC PANEL globulin 2.8 g/dL_ (calc ) 1.9-3. 7 normal Not Available [address], [address], 05/19/2024 03:49:50 05/16/20 24 05/19/2024 COMPR EHENS JOVI METAB OLIC PANEL albumin/glob ulin ratio 1.5 (calc ) 1.0-2. 5 normal Not Available [address], [address], 05/19/2024 03:49:50 05/16/20 24 05/19/2024 COMPR EHENS JOVI METAB OLIC PANEL bilirubin, total 0.4 mg/dL 0.2-1. 2 normal Not Available [address], [address], 05/19/2024 03:49:50 05/16/20 24 05/19/2024 COMPR EHENS JOVI METAB OLIC PANEL alkaline phosphatase 88 U/L 35-144 normal Not Available [facility] [address] [place], [address], 05/19/2024 03:49:50 05/16/20 24 05/19/2024 COMPR EHENS JOVI METAB OLIC PANEL AST 17 U/L 10-35 normal Not Available [facility] [address] [address] [place], [address], 05/19/2024 03:49:50 05/16/20 24 05/19/2024 COMPR EHENS JOVI METAB OLIC PANEL ALT 19 U/L 9-46 normal Not Available [address] [address] [place], [address], 05/19/2024 03:49:50 05/16/20 24 05/19/2024 HEMOG LOBIN [...] y estab lishe d by the [facility] [employer] hemog lobin Stand ardiz ation Progr am. Note that not all indiv idual s will have had a shift in their resul ts and direc t ganga rison s betwe en histo rical and curre nt resul ts for testi ng condu cted on diffe rent platf orms is not recom babs d. Not Available [facility] [employer] [address], [address], 05/19/2024 03:49:50 05/16/20 24 05/19/2024 CBC (INCL UDES DIFF/ PLT) white blood cell count 5.7 thous and/u L 3.8-10 .8 normal Not Available [address], [address], 05/19/2024 03:49:50 05/16/20 24 05/19/2024 CBC (INCL UDES DIFF/ PLT) red blood cell count 4.80 ayde on/uL 4.20-5 .80 normal Not Available [address], [address], 05/19/2024 03:49:50 05/16/20 24 05/19/2024 CBC (INCL UDES DIFF/ PLT) hemoglobin 14.5 g/dL 13.2-1 7.1 normal Not Available [facility] [address], [address], 05/19/2024 03:49:50 05/16/20 24 05/19/2024 CBC (INCL UDES DIFF/ PLT) hematocrit 44.1 % 38.5-5 0.0 normal Not Available [facility] [address], [address], 05/19/2024 03:49:50 05/16/20 24 05/19/2024 CBC (INCL UDES DIFF/ PLT) MCV 91.9 fL 80.0-1 00.0 normal Not Available [address], [address], 05/19/2024 03:49:50 05/16/20 24 05/19/2024 CBC (INCL UDES DIFF/ PLT) MCH 30.2 pg 27.0-3 3.0 normal Not Available [address], [address], 05/19/2024 03:49:50 05/16/20 24 05/19/2024 CBC (INCL UDES DIFF/ PLT) MCHC 32.9 g/dL 32.0-3 6.0 normal Not Available [address], [address], 05/19/2024 03:49:50 05/16/20 24 05/19/2024 CBC (INCL UDES DIFF/ PLT) RDW 12.7 % 11.0-1 5.0 normal Not Available [address], [address], 05/19/2024 03:49:50 05/16/2005/19/2024 CBC (INCL UDES DIFF/ PLT) platelet count 273 thous and/u L 140-40 0 normal Not Available [address], [address], 05/19/2024 03:49:50 05/16/20 24 05/19/2024 CBC (INCL UDES DIFF/ PLT) MPV 10.0 fL 7.5-12 .5 normal Not Available [address], [address], 05/19/2024 03:49:50 05/16/20 24 05/19/2024 CBC (INCL UDES DIFF/ PLT) absolute neutrophils 2958 cells /uL 1500-7 800 normal Not Available [address], [address], 05/19/2024 03:49:50 05/16/20 24 05/19/2024 CBC (INCL UDES DIFF/ PLT) absolute lymphocytes 1613 cells /uL 850-39 00 normal Not Available [address], [address], 05/19/2024 03:49:50 05/16/20 24 05/19/2024 CBC (INCL UDES DIFF/ PLT) absolute monocytes 604 cells /uL 200-95 0 normal Not Available [address], [address], 05/19/2024 03:49:50 05/16/2005/19/2024 CBC (INCL UDES DIFF/ PLT) absolute eosinophils 485 cells /uL 15-500 normal Not Available [address], [address], 05/19/2024 03:49:50 05/16/20 24 05/19/2024 CBC (INCL UDES DIFF/ PLT) absolute basophils 40 cells /uL 0-200 normal Not Available [address], [address], 05/19/2024 03:49:50 05/16/20 24 05/19/2024 CBC (INCL UDES DIFF/ PLT) neutrophils 51.9 % normal Not Available [address], [address], 05/19/2024 03:49:50 05/16/2005/19/2024 CBC (INCL UDES DIFF/ PLT) lymphocytes 28.3 % normal Not Available [address], [address], 05/19/2024 03:49:50 05/16/20 24 05/19/2024 CBC (INCL UDES DIFF/ PLT) monocytes 10.6 % normal Not Available [address], [address], 05/19/2024 03:49:50 05/16/20 24 05/19/2024 CBC (INCL UDES DIFF/ PLT) eosinophils 8.5 % normal Not Available [address], [address], 05/19/2024 03:49:50 05/16/20 24 05/19/2024 CBC (INCL UDES DIFF/ PLT) basophils 0.7 % normal Not Available [address], [address], 05/19/2024 03:49:50 05/16/2005/19/2024 URINA LYSIS , COMPL ETE color YELLOW yellow normal Not Available [address], [address], 05/19/2024 03:49:51 05/16/2005/19/2024 URINA LYSIS , COMPL ETE appearance CLEAR clear normal Not Available [address], [address], 05/19/2024 03:49:51 05/16/2005/19/2024 URINA LYSIS , COMPL ETE specific gravity 1.020 1.001- 1.035 normal Not Available [address], [address], 05/19/2024 03:49:51 05/16/2005/19/2024 URINA LYSIS , COMPL ETE pH 5.5 5.0-8. 0 normal Not Available [address], [address], 05/19/2024 03:49:51 05/16/2005/19/2024 URINA LYSIS , COMPL ETE glucose NEGATI VE negati ve normal Not Available [address], [address], 05/19/2024 03:49:51 05/16/20 24 05/19/2024 URINA LYSIS , COMPL ETE bilirubin NEGATI VE negati ve normal Not Available [address], [address], 05/19/2024 03:49:51 05/16/20 24 05/19/2024 URINA LYSIS , COMPL ETE ketones NEGATI VE negati ve normal Not Available [address], [address], 05/19/2024 03:49:51 05/16/2005/19/2024 URINA LYSIS , COMPL ETE occult blood NEGATI VE negati ve normal Not Available [address], [address], 05/19/2024 03:49:51 05/16/20 24 05/19/2024 URINA LYSIS , COMPL ETE protein NEGATI VE negati ve normal Not Available [address], [address], 05/19/2024 03:49:51 05/16/20 24 05/19/2024 URINA LYSIS , COMPL ETE nitrite NEGATI VE negati ve normal Not Available [address], [address], 05/19/2024 03:49:51 05/16/20 24 05/19/2024 URINA LYSIS , COMPL ETE leukocyte esterase NEGATI VE negati ve normal Not Available [address], [address], 05/19/2024 03:49:51 05/16/20 24 05/19/2024 URINA LYSIS , COMPL ETE WBC NONE SEEN /hpf < or = 5 normal Not Available [address], [place], [address], 05/19/2024 03:49:51 05/16/20 24 05/19/2024 URINA LYSIS , COMPL ETE RBC NONE SEEN /hpf < or = 2 normal Not Available [facility] [address], [address], 05/19/2024 03:49:51 05/16/20 24 05/19/2024 URINA LYSIS , COMPL ETE squamous epithelial cells NONE SEEN /hpf < or = 5 normal Not Available [facility] [address], [address], 05/19/2024 03:49:51 05/16/20 24 05/19/2024 URINA LYSIS , COMPL ETE bacteria NONE SEEN /hpf none seen normal Not Available [address], [address], 05/19/2024 03:49:51 05/16/20 24 05/19/2024 URINA LYSIS , COMPL ETE hyaline cast NONE SEEN /lpf none seen normal Not Available [address], [address], 05/19/2024 03:49:51 05/16/20 24 05/19/2024 EXTRA SPECI MEN extra tube received An extra speci men was recei luis daniel with no test reque sted. The speci men will be maint ained in [facility] [facility] in case addit ional testi ng is gregorio Major e call the [facility] for sina levine . Not Available [facility] [address], [address], 05/19/2024 03:49:51 05/16/20 24 05/19/2024 EXTRA SPECI MEN specimen type received Urine Not Available [address], [address], 05/19/2024 03:49:51 05/16/20 24 05/19/2024 CULTU RE, URINE , ROUTI NE culture, urine, routine CULTU RE, URINE , ROUTI NE Micro Numbe r: [id number] Test Statu s: Final Speci men [...] or addit ional testi ng. Not Available [address] [address] [place], [address], 05/19/2024 03:49:52 04/13/20 22 03/27/2022 home sleep study No observ ation record ed. [id number] [place] [address], [address], 11/28/2022 02:59:32 06/29/20 22 06/23/2022 US, echoc ardio gram, trans thora cic, compl ete, w/ color flow No observ ation record ed. [id number] [address] [facility], [place], [address], 11/28/2022 02:59:32 07/30/20 22 07/03/2022 polys omnog timothy , titra tion study (PROC ) No observ ation record ed. [email or web address].26 [facility] [address] [place], [address], 11/28/2022 02:59:32 09/12/20 22 07/29/2018 audio logic asses sment (PROC ) No observ ation record ed. [id number] [facility] [address], [place], [address], 11/28/2022 02:59:32 02/07/20 23 02/06/2023 xuan can cardi olite stres s test (PROC ) No observ ation record ed. [email or web address] [facility] [address], [place], [address], 06/24/2023 17:38:35 05/02/20 23 05/02/2023 colon oscop y proce dure (PROC ) No observ ation record ed. [email or web address] Cuco Weeks MD [address] [facility] [address], [place], [address], 06/24/2023 17:38:20 Result Notes None recorded. Problems Name Problem SNOMED Code Status Onset Date Resolution Date Notes Provider Name and Address Organization Details Recorded Time Tight chest 59772204 Active 2021 Not Available [facility] 3 17:05:14 Seasonal allergic rhinitis 796155075 Active 2021 Not Available [facility] 3 17:05:14 Left ventricular diastolic dysfunction 293557383 Active 2021 Not Available [facility] 3 17:05:14 Prostate specific antigen above reference range 305356978 Active 2021 Not Available [facility] 3 17:05:14 Dyspnea on exertion 12808483 Active 2021 Not Available [facility] 3 17:05:14 Sleep apnea 72092934 Active 2021 Not Available [facility] 3 17:05:14 Obstructive sleep apnea syndrome 02196445 Active 2021 Not Available [facility] 3 17:05:14 Atypical chest pain 551236637 Active 2022 Not Available [facility] 3 17:05:14 Allergic rhinitis 63470291 Active 2022 Not Available [facility] 3 17:05:14 Blood glucose outside reference range 403860235 Active 2022 Not Available [facility] 3 17:05:14 Erectile dysfunction 206432680 Active 2022 Not Available [facility] 3 17:05:14 Problem Notes None recorded. Procedures Surgical History Date Name Laterality Status Provider Name and Address Organization Details Recorded Time 2 Sinus Surgery completed Not Available [facility] 11/28/2022 02:44:54 6 partial repair of rotator cuff completed Not Available [facility] 11/28/2022 02:44:54 Imaging Results Imaging Date Name Status LastModified by Organiz ation Details LastModified Time 07/03/2022 polysomnography , titration study (PROC) completed [id number] [facility] [address] [place], [address], 11/28/2022 02:59:32 07/29/2018 audiologic assessment (PROC) completed [id number] [facility] [address] [place], [address], 11/28/2022 02:59:32 06/23/2022 US, echocardiogram, transthoracic, complete, w/ color flow completed [id number] [facility] [address], [place], [address], 11/28/2022 02:59:32 03/27/2022 home sleep study completed [id number] [facility] [address], [address], 11/28/2022 02:59:32 02/06/2023 lexiscan cardiolite stress test (PROC) completed [email or web address] [facility] [address] [facility] [address], [place], [address], 06/24/2023 17:38:35 05/02/2023 colonoscopy procedure (PROC) completed [email or web address] Cuco Weeks MD [address] [facility] [address], [place], [address], 06/24/2023 17:38:20 Procedure Notes None recorded. Medical [...] Not Available No t Available Flucelvax Quad [id number] (PF) 60 mcg (15 mcg x 4)/0.5 [...] Approved wegovy. Valid: 12/13/22- 07/15/23 . ALESHIA# [facility] [phone] [place]. Not Available Not Available Not [...] 3 177.8 cm 97.2 [degF] 47.8 kg/m2 318285. 26 g 16 /min 96 % 96 % 68 /min 122 mm[Hg] 80 mm[Hg] DANICA Fonseca [facility] [employer] 3 17:24:10 Date Recorded Body height Body weight Body temperature Heart rate Oxygen saturation Oxygen saturation in Arterial blood by Pulse oximetry Systolic blood pressure Diastolic blood pressure Provider Name and Address Organization Details Last Updated DateTime 3 177.8 cm 229816. 41 g 97.3 [degF] 71 /min 98 % 98 % 132 mm[Hg] 70 mm[Hg] Meryl Howell RN [facility] [employer] 3 17:31:56 Date Recorded Body mass index (BMI) Provider Name and Address Organization Details Last Updated DateTime 06/24/2023 48.8 kg/m2 ALESHIA Ervin [address] [facility], [facility] [address], [place], [address], [facility] [employer] 06/30/2023 11:50:50 Date Recorded Body mass index (BMI) Body height Oxygen saturation Oxygen saturation in Arterial blood by Pulse oximetry Heart rate Body temperature Body weight Systolic blood pressure Diastolic blood pressure Provider Name and Address Organization Details Last Updated DateTime 1 46.9 kg/m2 177.8 cm 98 % 98 % 64 /min 98 [degF] 692351. 7 g 120 mm[Hg] 80 mm[Hg] Not Available [facility] 3 02:47:50 Date Recorded Body mass index (BMI) Body height Oxygen saturation Oxygen saturation in Arterial blood by Pulse oximetry Heart rate Respiratory rate Body temperature Body weight Systolic blood pressure Diastolic blood pressure Provider Name and Address Organization Details Last Updated DateTime 2 46.9 kg/m2 177.8 cm 96 % 96 % 62 /min 20 /min 96.5 [degF] 359558. 7 g 126 mm[Hg] 70 mm[Hg] Not Available [facility] 3 02:47:50 Date Recorded Body mass index (BMI) Body height Oxygen saturation Oxygen saturation in Arterial blood by Pulse oximetry Heart rate Respiratory rate Body temperature Body weight Systolic blood pressure Diastolic blood pressure Provider Name and Address Organization Details Last Updated DateTime 2 46.6 kg/m2 177.8 cm 95 % 95 % 62 /min 20 /min 97.1 [degF] 427930. 52 g 130 mm[Hg] 82 mm[Hg] Not Available [facility] 3 02:47:50 Social History Question Answer Notes LastModified by Organizat ion Details LastModified Time Tobacco Smoking Status Never Smoker Not Available [facility] 11/28/2022 02:39:11 What Is Your Level Of Alcohol Consumption? Occasional [id number] Information not available 11/28/2022 What Is Your Level Of Caffeine Consumption? Heavy MIGRATION.[id number] 8913 Information not available 11/28/2022 How Much Tobacco Do You Chew? None MIGRATION.[id number] 1532 Information not available 11/28/2022 In The 14 Days Before Symptom Onset, Have You Had Close Contact With A Laboratory-confirm ed COVID-19 While That Case Was Ill? No MIGRATION.[id number] 8059 Information not available 11/28/2022 In The 14 Days Before Symptom Onset, Have You Had Close Contact With A Person Who Is Under Investigation For COVID-19 While That Person Was Ill? No MIGRATION.[id number] 1877 Information not available 11/28/2022 What Type Of Diet Are You Following? REGULAR MIGRATION.[id number] 4135 Information not available 11/28/2022 Which Illicit Or Recreational Drugs Have You Used? None MIGRATION.609628 8987 Information not available 11/28/2022 Have There Been Any Changes To Your Family Or Social Situation? No MIGRATION.682516 5144 Information not available 11/28/2022 Are There Any Guns Present In Your Home? No MIGRATION.379703 1360 Information not available 11/28/2022 Do You Use Insect Repellent Routinely? No MIGRATION.233734 5721 Information not available 11/28/2022 What Is Your Relationship Status? MIGRATION.033187 2365 Information not available 11/28/2022 Do You Use Your Seat Belt Or Car Seat Routinely? Yes [email or web address] Information not available 06/21/2023 Do You Have Smoke And Carbon Monoxide Detectors In Your Home? Yes MIGRATION.757191 9621 Information not available 11/28/2022 How Much Tobacco Do You Smoke? No MIGRATION.686913 2245 Information not available 11/28/2022 Do You Use Any Illicit Or Recreational Drugs? No MIGRATION.712345 9589 Information not available 11/28/2022 Do You Use Sunscreen Routinely? Yes MIGRATION.181991 1394 Information not available 11/28/2022 How Many Years Have You Smoked Tobacco? 0 MIGRATION.519643 7938 Information not available 11/28/2022 Have You Recently Traveled Abroad? No MIGRATION.730907 8505 Information not available 11/28/2022 Do You Have Any Dietary Restrictions? No MIGRATION.903689 1867 Information not available 11/28/2022 Do You Or Have You Ever Used Any Other Forms Of Tobacco Or Nicotine? No MIGRATION.368967 3949 Information not available 11/28/2022 Sex: Unknown Functional Status Question Answer Note LastModified by Organizat ion Details LastModified Time What is your exercise level? None [id number].[id number] Information not available 11/28/2022 Mental Status None recorded. Family History Relationship Description Onset Age of this Age Resolved Age Notes LastModified by Organization Details LastModified Time Brother Pulmonary embolism [id number] Not available 11/28/2022 02:44:58 Sister Pulmonary embolism MIGRATION.[id number] Not available 11/28/2022 02:44:58 Sister Malignant tumor of pancreas MIGRATION.217 [id number] Not available 11/28/2022 02:44:58 Father General health good MIGRATION.375 [id number] Not available 11/28/2022 02:44:58 Medical History Condition Response NERVE DISEASE N BLINDNESS N RHEUMATIC FEVER N KIDNEY STONES N BLADDER PROBLEMS N OTHER # 1 N POLIO N LUNG DISEASE/DISORDER N COPD N RADIATION / CHEMOTHERAPY N Other # 2 N BLOOD DISEASES N SURGERY N EAR OR HEARING PROBLEMS N MUMPS N BOWEL PROBLEMS N DEPRESSION (INCLUDING POST ) N STROKE/TIA N ULCERS N BENIGN PROSTATIC HYPERPLASIA N MEASLES N MYOCARDIAL INFARCTION N OBESITY N GERD/NAUSEA N ANEURYSM N URINARY/BLADDER/KIDNEY PROBLEMS N CORONARY ARTERY DISEASE (CAD) N INPATIENT PSYCH CARE N ADDICTION CONCERNS N ENDOMETRIOSIS N Impotence [...] HAVE YOU BEEN HOSPITALIZED OR SEEN IN [facility] IN THE PAST YEAR ? N [...] virus, quadrivalent, preservative 1 completed Not Available [facility] 11/28/2022 02:58:46 Influenza, split virus, quadrivalent, preservative 2 completed Not Available [facility] 11/28/2022 02:58:46 COVID-19, mRNA, LNP-S, PF, 30 mcg/0.3 mL dose 2 completed Not Available [facility] 11/28/2022 02:58:46 COVID-19, mRNA, LNP-S, PF, 100 mcg/0.5mL dose or 50 mcg/0.25mL dose 1 completed Not Available [facility] 11/28/2022 02:58:46 COVID-19, mRNA, LNP-S, PF, 30 mcg/0.3 mL dose 1 completed Not Available [facility] 11/28/2022 02:58:47 COVID-19, mRNA, LNP-S, PF, 30 mcg/0.3 mL dose 1 completed Not Available [facility] 11/28/2022 02:58:47 Influenza, split virus, quadrivalent, preservative 8 completed Not Available [facility] 11/28/2022 02:58:47 influenza, unspecified formulation 3 completed Mariama Keenan RMA null, [place] [employer] [facility] 07/10/2023 15:01:17 COVID-19, mRNA, LNP-S, PF, 30 mcg/0.3 mL dose 3 completed Mariama Keenan RMA null, [place] [employer] [facility] 07/10/2023 15:02:52 zoster, unspecified formulation 3 completed Mariama Keenan RMA null, [place] [employer] [facility] 08/30/2023 15:56:28 pneumococcal, unspecified formulation 3 completed Mariama Keenan RMA null, [place] [facility] 08/30/2023 15:57:05 Past Encounters Encounter ID Performer Location Encounter Start Date Encounter Closed Date Diagnosis/Indication Diagnosis SNOMED-CT Code Diagnosis ICD10 Code Diagnosis Note [id number] [facility] [address] [place] [address] 12/12/2020 00:00:00 12/28/2020 11:59:58 [id number] [facility] [address] [place], [place] [address] 04/05/2021 00:00:00 04/23/2021 17:34:08 [id number] [facility] [address] [place], [place] [address] 08/11/2021 00:00:00 09/20/2021 13:45:16 [id number] [facility] [address] [place] [address] 02/07/2022 00:00:00 02/18/2022 12:24:38 [id number] [facility] [address] [place], [place] [address] 08/13/2022 00:00:00 08/29/2022 18:38:52 [id number] ALESHIA Ervin [facility] [address] [place], [place] [address] 12/10/2022 17:15:05 12/10/2022 17:52:32 Obstructive sleep apnea syndrome 66360567 G47.33 on cpap , still trying to get used to it. Atypical chest pain 1025 32557 R07.89 refer again for lexiscan stress testing. pt cannot complete treadmill testing due to arthritis in the knees. Left ventr icular diastolic dysfunction 626755730 I50.30 on diltiazem and stable. Prostate s pecific antigen above reference range 239996844 R97.20 followed routinely with urology and UTD on exam Allergic rhinitis 578140 04 J30.9 stable on singulair and flonase. History of polyp of colon 671216631 Z86.010 due for f/u colonoscop y Body mass index 40+ - severely obese 336727700 Z68.42 start wegovy if insurance will cover Long-term drug therapy 804115040 Z79.899 next labs set due in may Blood gluc ose outside reference range 543569704 R73.09 following A1c. Cholesterol screening 27 3590288 Z13.868 [id number] ALESHIA Ervin [facility] [address] [place] [address] 06/24/2023 17:26:02 06/24/2023 18:02:43 Adult health examination 954638351 Z00.01 well exam completed. . Left ventr icular diastolic dysfunction 638389079 I50.30 on diltiazem and stable. (noted on echo testing) Prostate s pecific antigen above reference range 138235081 R97.20 followed routinely with urology and UTD on exam Obstructiv e sleep apnea syndrome 14559690 G47.33 on cpap , still trying to get used to it. Allergic rhinitis 260212 04 J30.9 stable on singulair and flonase. Body mass index 40+ - severely obese 143505285 Z68.42 Long-term drug therapy 294395356 Z79.899 Erectile dysfunction 860 919137 F52.21 trial of tadalafil 20mg daily PRN Health Concerns Section Related Observation LastModified by Organization Detai ls LastModified Time None Recorded Concern Status LastModified by Organization Details LastModified Time None Recorded Advance Directives Directive None Recorded Payers Encounter Date Sequence Insurance Name Policy Number Policy Rojas Covered Member ID Rojas Member ID Guarantor Name 12/10/2022 1 [facility]: [place] [id number] Sourav Evans [id number] Sourav Evans 06/24/2023 1 [employer] [facility] [id number] Sourav Evans [id number] Sourav Evans Notes Date Note Type Note Provider Name and Address Organization Details Recorded Time 08/11/2021 text/html Generic HPI TemplateReported bypatient.Notes:Pt is here today for a 6 month follow up, doing fine,no complaints Not Available [facility] 09/20/2021 13:45:16 02/07/2022 text/html Generic HPI TemplateReported bypatient.Notes:Here for wellness. No chronic problems. No major complaints. He does have chronic allergies and needs a rf on his nasal spray and montelukast. Not Available [facility] 02/18/2022 12:24:38 08/13/2022 text/html Sleep ProblemsReported bypatient.General Sleep:normal sleep; no sleep apnea; not sleepy during the day (daytime somnolence); no snoring; no twist packer headache Onset/Timing:new onset Severity:does not interfere with [...] and the patient has problems Not Available [facility] [employer] [facility] 08/29/2022 18:38:52 12/10/2022 text/html Obstructive Slee p [...] denied it. ALESHIA Ervin [address], [facility] [address], [place], [address], [facility] 12/16/2022 12:01:09 06/24/2023 text/html Obstructive Slee p [...] to his CPAP. wellness ALESHIA Ervin [address], [facility] [address], [place], [address], [facility] 06/30/2023 11:53:13
--- OUTSIDE RECORDS SUMMARY | 2025-01-11 07:21 | XMS_ITS | Referral Summary ---
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 Address: [place] [address] Care Teams Double Needle Operator Relationship Specialty Start Date End Date Guera Davis PA PCP - General Physician Senior Actuarial Analyst 09/02/18
[2025-01-11 08:45] LABS: Estimated Glomerular Filt Rate > 60
== END 2025-01-11 07:14 | disposition home or self-care (01) ==
LOC: CHSIMG 07:16
PROVIDERS: PCP Physician Assistant; Visit Provider Physician Assistant
DX: R06.00 Dyspnea, unspecified (principal)
CPT/HCPCS: 71275; Q9967

== ENCOUNTER 2025-02-20 06:52 | Outpatient (CLI) | payer BC, SELFPAY ==
--- OUTSIDE RECORDS SUMMARY | 2025-02-20 06:56 | XMS_ITS | Referral Summary ---
Author Organization [facility] Building [facility] Address [address] [place] [address] Care Team Providers Care Welfare Investigator Name Role Phone TreeMarium elkinscarlito MONK Primary Care Pr ovider Allergies No known active allergies Medications ibuprofen (ibuprofen) 200 mg tab/cap Take by mouth every 6 (six) hours as needed for pain. 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 Gender Identity Not on file Sexual Orientation Not on file Last Filed Vital Signs Vital Sign Reading Time Taken Comments Blood Pressure 126/75 01/08/2019 9:53 AM CDT Pulse 58 01/08/2019 9:53 AM CDT Temperature - - Respiratory Rate - - Oxygen Saturation - - Inhaled Oxygen Concentration - - Weight 152.4 kg (336 lb) 02/27/2024 2:18 PM CDT Height 179.1 cm (5' 10.5) 02/27/2024 2:18 PM CD T Body Mass Index 47.53 02/27/2024 2:18 PM CDT Plan of Treatment Not on file Insurance [employer] OOS Care Teams Welfare Investigator Relationship Specialty Start Date End Date Guera Davis PA PCP - General Physician Supervisor Air Conditioning Installer 09/02/18
--- OUTSIDE RECORDS SUMMARY | 2025-02-20 06:56 | XMS_ITS | Data Portability ---
Author Organization [facility] Address [address] [place] [address] Care Team Providers Care Bulk Driver Name Role Phone CAPRICE CARBALLO Primary Care Provider Unavailab le Assessment No assessment recorded. Plan of Treatment Reminders Order Date Submit Date Provider Last Modified By Organization Details Last Modified Time Details Appointments ANY 15 2024 04:15P M ALESHIA Ervin Not available Not available Not available Lab HbA1c (hemoglob in A1c), blood 2024 025 [employer] [facility], [address] [place], [address], 01/12/2025 14:29:27 TSH + free T4, serum 2024 025 [employer] [facility], [address] [place], [address], 01/12/2025 14:29:39 CMP, serum or plasma 2024 025 [employer] [facility], [address] [place], [address], 01/12/2025 14:29:18 CBC w/ auto diff 2024 025 [employer] [facility], [address] [place], [address], 01/12/2025 14:30:17 lipid panel, serum [address] [facility] [address] [place], [address], 01/12/2025 14:29:09 PT/PTT, plasma 2024 025 [facility] [address] [place], [address], 01/12/2025 14:30:25 factor V mutation, blood or tissue 2024 025 [facility] [employer] [address] [place], [address], 01/12/2025 14:29:48 prothromb in (factor II) [id number] mutation, blood [address] [place], [address], 01/12/2025 14:30:00 unlisted lab - lupus anticoagu lant and cardiolip in antibody panel with reflex 2024 025 [facility] [address] [place], [address], 01/12/2025 14:28:43 TSH + free T4, serum 2023 024 [email or web address] [facility], [address] [place] [address], [place], [address], 05/05/2024 07:53:07 CMP, serum or plasma 2023 024 [email or web address] [facility], [address] [place] [address], [place], [address], 05/05/2024 07:53:06 CBC w/ auto diff 2023 024 [email or web address] [facility], [address] [place] [address], [place], [address], 05/05/2024 07:53:06 lipid panel, serum 2023 024 [email or web address] [facility], [address] [facility], [facility], [place], [address], 05/05/2024 07:53:06 HbA1c (hemoglob in A1c), blood 2023 024 [email or web address] [facility], [address] [facility], [facility], [place], [address], 05/05/2024 07:53:07 Referral None recorded. Procedures None recorded. Surgeries None recorded. Imaging CT, angiogram , chest, w/ contrast 2024 025 [facility], [address] [place], [address], 01/11/2025 12:35:28 US, duplex, venous, lower extremity , complete 2024 025 [facility], [address] [place], [address], 12/15/2024 08:49:06 Medication Orders diltiazem CD 120 mg capsule,e xtended release 24 hr 2024 025 [email or web address] [facility]/Pharmacy #[id number], [address] [place], [address], 12/07/2024 17:50:[address] 10 mg tablet 2023 024 [email or web address] [facility]/Pharmacy #[id number], [address] [place], [address], 12/07/2024 17:18:14 fluticaso ne propionat e 50 mcg/actua tion nasal spray,isaak pension 2023 024 [facility]/Pharmacy #[id number], [address] [place], [address], 12/04/2023 09:27:49 diltiazem CD 120 mg capsule,e xtended release 24 hr 2023 024 [facility]/Pharmacy #[id number], [address] [place], [address], 12/04/2023 09:27:49 Patient TargetsNo targets recorded. Patient Instructions Encounter Date Encounter Id Patient Instructions Last Modified By Organization Details Last Modified Time 06/10/2024 [id number] A healthy lifestyle: care instructions Not available 06/28/2024 12:29:56 12/07/2024 [id number] A healthy lifestyle: care instructions Not available 12/07/2024 17:46:48 Reason for Referral None Reported. Results Created Date Observation Date Name Description Value Unit Range Abnormal Flag Note LastModifiedBy Organization Detail LastModifiedTime 05/16/20 24 05/19/2024 Bacte judy ident ified in Urine by [...] [#/volume] in blood by automated count absol comanche neutr ophil s Not Available Not Available 11/16/2024 15:26:47 05/16/20 24 05/19/2024 CBC W Auto Diffe renti al panel - Blood lymphocytes [#/volume] in blood by automated count absol comanche lymph ocyte s Not Available Not Available 11/16/2024 15:26:47 05/16/20 24 05/19/2024 CBC W Auto Diffe renti al panel - Blood monocytes [#/volume] in blood by automated count absol comanche monoc ytes Not Available Not Available 11/16/2024 15:26:47 05/16/20 24 05/19/2024 CBC W Auto Diffe renti al panel - Blood eosinophils [#/volume] in blood by automated count absol comanche eosin ophil s Not Available Not Available 11/16/2024 15:26:47 05/16/20 24 05/19/2024 CBC W Auto Diffe renti al panel - Blood basophils [#/volume] in blood by automated count absol comanche basop hils Not Available Not Available 11/16/2024 [...] Available 11/16/2024 15:26:47 05/16/20 24 05/19/2024 Compr MZL [employer] johnny metab olic 1999 panel - Serum or Plasm a sodium [moles/volum e] in serum or plasma sodiu m Not Available Not Available 11/16/2024 15:26:47 05/16/20 24 05/19/2024 Compr ehens johnny metab olic 1999 panel - Serum or Plasm a potassium [moles/volum e] in serum or plasma potas sium Not Available Not Available 11/16/2024 15:26:47 05/16/20 24 05/19/2024 Compr MZL [employer] johnny metab olic 1999 panel - Serum or Plasm a chloride [moles/volum e] in serum or plasma chlor olivia Not Available Not Available 11/16/2024 15:26:47 05/16/20 24 05/19/2024 Compr MZL [employer] johnny metab olic 1999 panel - Serum or Plasm a carbon dioxide, total [moles/volum e] in serum or plasma carbo n dioxi de Not Available Not Available 11/16/2024 15:26:47 05/16/20 24 05/19/2024 Compr MZL [employer] johnny metab olic 1999 panel - Serum or Plasm a calcium [mass/volume ] in serum or plasma calci um Not Available Not Available 11/16/2024 15:26:47 05/16/20 24 05/19/2024 Compr MZL [employer] johnny metab olic 1999 panel - Serum or Plasm a protein [mass/volume ] in serum or plasma prote in, total Not Available Not Available 11/16/2024 15:26:47 05/16/20 24 05/19/2024 Compr MZL [employer] johnny metab olic 1999 panel - Serum or Plasm a albumin [mass/volume ] in serum or plasma album in Not Available Not Available 11/16/2024 15:26:47 05/16/20 24 05/19/2024 Compr MZL [employer] johnny metab olic 1999 panel - Serum or Plasm a globulin [mass/volume ] in serum by calculation globu soto Not Available Not Available 11/16/2024 15:26:47 05/16/20 24 05/19/2024 Compr MZL [employer] johnny metab olic 1999 panel - Serum [...] Available 10/31 15:26:47 05/16/20 24 05/19/2024 Lipid 1995 panel [...] Available 11/16/2024 15:26:47 12/16/19 25 12/14/2024 US, duple x, venou s, lower extre mity, compl ete No observ ation record ed. [facility] [address] [place], [address], 12/15/2024 18:00:40 01/12/20 25 01/11/2025 CT, angio gram, chest , w/ contr ast No observ ation record ed. [facility] [address] [place], [address], 01/12/2025 14:30:57 Result Notes None recorded. Problems Name Problem SNOMED Code Status Onset Date Resolution Date Notes Provider Name and Address Organization Details Recorded Time Benign essential hypertensio n 5671211 Active 2023 Mariama Keenan null, [facility] 4 12:51:48 Body mass index 40+ - severely obese 830327854 Active 2023 ELISHA Zaragoza, [facility] 4 08:57:50 Prediabetes 586376614 Active 2023 ALESHIA Ervin Attn: Dianna aguilar,[address] [place], [address], [place] - [facility] 4 09:04:37 Malignant neoplasm of prostate 816230731 Active 2023 ALESHIA Ervin Attn: Dianna aguilar,[address] [place], [address], [place] [facility] 4 09:04:39 Seasonal allergic rhinitis 876498674 Active 2023 ALESHIA Ervin Attn: Dianna aguilar,[address] [place], [address], [place] [facility] 4 09:04:42 Long-term drug therapy Active 2023 ALESHIA Ervin Attn: Jeanninespencer aguilar,[address] [place], [address], [place] [facility] 4 09:04:43 Obesity 609433627 Active 2023 ALESHIA Ervin Attn: Dianna aguilar,[address] [place], [address], [place] [facility] 4 12:29:49 Family history of blood coagulation disorder 5251093332272 09 Active 2024 ALESHIA Ervin Attn: Jeanninespencer aguilar,[address] [place], [address], [place] [facility] 5 22:35:16 Bilateral lower limb edema 108407844 Active 2024 ALESHIA Ervin Attn: Jeanninespencer aguilra,[address] [place], [address], [place] [facility] 5 22:35:17 Problem Notes None recorded. Medical Equipment None [...] CAPSULE ORAL ROUTE EVERY 8 HOURS NEEDED 01/17 completed Not Available Not Available Not Available [...] Not Available Not Available Vitals Date Recorded Systolic And Diastolic Provider Name and Address Organization Details Last Updated DateTime 12/04/2023 138/70 mm[Hg] ALESHIA Ervin Attn: Accounting,[address] [place], [address], [facility] 12/04/2023 09:25:04 Date Recorded Respiratory rate Body weight Heart rate Oxygen saturation Oxygen saturation in Arterial blood by Pulse oximetry Body mass index (BMI) Body height Systolic And Diastolic Provider Name and Address Organization Details Last Updated DateTime 16 /min 119641. 78 g 69 /min 97 % 97 % 48 kg/m2 180.34 cm 146/72 mm[Hg] Neelima Mistry MA [facility] 08:59:25 Date Recorded Systolic And Diastolic Provider Name and Address Organization Details Last Updated DateTime 12/07/2024 142/74 mm[Hg] ALESHIA Ervin Attn: Accounting,[address] [place], [address], [facility] 12/07/2024 17:45:56 Date Recorded Body height Body mass index (BMI) Body weight Respiratory rate Oxygen saturation Oxygen saturation in Arterial blood by Pulse oximetry Heart rate Systolic And Diastolic Provider Name and Address Organization Details Last Updated DateTime 180.34 cm 46.4 kg/m2 466447. 26 g 18 /min 97 % 97 % 67 /min 142/78 mm[Hg] Neelima Mistry MA [facility] 17:22:33 Date Recorded Systolic And Diastolic Provider Name and Address Organization Details Last Updated DateTime 06/10/2024 140/80 mm[Hg] ALESHIA Ervin Attn: Accounting,[address] [place], [address], [facility] 06/10/2024 09:10:47 Date Recorded Body height Body mass index (BMI) Body weight Respiratory rate Oxygen saturation Oxygen saturation in Arterial blood by Pulse oximetry Heart rate Systolic And Diastolic Provider Name and Address Organization Details Last Updated DateTime 180.34 cm 46.6 kg/m2 694093. 85 g 18 /min 96 % 96 % 60 /min 140/82 mm[Hg] Neelima Mistry MA [facility] 08:59:03 Social History Question Answer Notes LastModified by Organizat ion Details LastModified Time Tobacco Smoking Status Never Smoker Neelima Mistry MA null, [facility] 12/04/2023 09:03:46 Do You Have An Advance Directive? Yes Information not available 06/10/2024 Are You Blind [...] Yes Information not available 12/04/2023 Do You Use Sunscreen Routinely? No Information not available 06/10/2024 Has Tobacco Cessation Counseling Been Provided? Yes Information not available 12/04/2023 On What Date Was Tobacco Cessation Counseling Provided? 12/07/2024 Information not available 12/07/2024 Sex: Male Functional Status Question Answer Note LastModified by Organizat ion Details LastModified Time Do you use any illicit or recreational drugs? No Information not available 12/04/2023 Do you or have you ever used any other forms of tobacco or nicotine? No Information not available 12/04/2023 What is your level of alcohol consumption? Occasional Information not available 06/10/2024 Are you able to care for yourself? Yes Information n ot available 12/04/2023 What is your exercise level? None Information not available 06/10/2024 Mental Status Question Answer Note LastModified by Organization D etails LastModified Time Do you feel stressed (tense, restless, nervous, or anxious, or unable to sleep at night)? [id number] Information not available 06/10/2024 Family History Relationship Description Onset Age of [...] [facility] 12/07/2024 17:19:46 Pneumococcal conjugate PCV20, polysaccharide LTC721 conjugate, adjuvant, PF 3 completed ELISHA Zaragoza, [...] mL 4 completed ELISHA Zaragoza, YARA - [facility] 12/07/2024 17:20:20 Tdap 4 completed ELISHA Zaragoza, YARA - [facility] 12/07/2024 17:20:20 Influenza, MDCK, trivalent, PF 4 completed ELISHA Zaragoza, YARA - [facility] 12/07/2024 17:20:20 Past Encounters Encounter ID Performer Location Encounter Start Date Encounter Closed Date Diagnosis/Indication Diagnosis SNOMED-CT Code Diagnosis ICD10 Code Diagnosis Note [id number] Tripp Mena MD [facility] [address] [place] [address] 12/04/2023 08:50:44 12/04/2023 12:58:45 Benign essential hypertension 8522868 I10 stable on diltiazem CD 120mg daily. Long-term drug therapy 946812274 Z79.899 labs are not due until april , before his may appt. Prostate s pecific antigen above reference range 990809853 R97.20 following with Urology routinely, biopsies have been negative and PSA was up around 8 and is coming down some to 7.5 they are following closely. Cholesterol screening 27 9544829 Z13.220 Diabetes m ellitus screening 135576215 Z13.1 Thyroid di sorder screening 403403989 Z13.29 Seasonal a llergic rhinitis 372780101 J30.2 refill on allergy meds. spring and harvest seasons are the worst for him. medication s do help. [id number] Tripp Mena MD [facility] [place] [address] [place] [address] 06/10/2024 08:41:35 06/10/2024 12:54:21 Benign essential hypertension 9695670 I10 stable on diltiazem CD 120mg daily. Body mass index 40+ - severely obese 531793352 Z68.42 bmi 46.6 Seasonal a llergic rhinitis 178981779 J30.2 stable on allergy meds Long-term drug therapy 770460857 Z79.899 All labs are up-to-date Malignant neoplasm of prostate 024661649 C61 formally diagnosed with prostate cancer now. Getting ready to start 40 Radiation treatments . Prediabetes 752841642 R7 3.03 6%, stable with diet control Adult heal th examination 823490684 Z00.01 Annual wellness exam completed Obesity 260544833 E66.8 discussed healthy diet, exercise, controllin g carbohydra ricco and added sugars in the diet [id number] Tripp Mena MD [facility] [place] [address] [place] [address] 12/07/2024 16:56:58 12/07/2024 17:58:22 Long-term drug therapy 699416462 Z79.899 CBC and CMP due Body mass index 40+ - severely obese 236138467 Z68.42 bmi 46.6 Morbid obesity 504589605 E66.01 discussed healthy diet, exercise, controllin g carbohydra ricco and added sugars in the diet Benign ess ential hypertension 1015479 I10 stable on diltiazem CD 120mg daily. Refill sent Malignant neoplasm of prostate 478846699 C61 formally diagnosed with prostate cancer now. radiation completed early august. PSA recent 0.35, improvemen ts. Prediabetes 211509633 R7 3.03 6%, stable with diet control due for updated A1c lab Seasonal a llergic rhinitis 278441724 J30.2 stable on allergy meds Cholesterol screening 27 3538218 Z13.220 Fasting lipids are due Thyroid di sorder screening 104657853 Z13.29 Routine thyroid testing due Family his tory of blood coagulation disorder 7938015849 99762 Z83.2 Family history of a blood coagulatio n disorder that he is not sure exactly what we will check a full coagulatio n disorder panel Dyspnea 135289924 R06.00 Patient reports dyspnea on review of systems today. We will send for CT angiogram of the chest with contrast Bilateral lower limb edema 145568957 R60.0 Refer for ultrasound duplex of the [...] Member ID Guarantor Name 12/04/2023 1 [employer] Severiano Evans [id number] 87 Sourav Tillmanam 06/10/2024 1 [place] [id number] Sourav Evans [id number] 87 Sourav Tillmanam 12/07/2024 1 [place] [id number] Sourav Evans [id number] 87 Sourav Tillmanam Notes Date Note Type Note Provider Name and Address Organization Details Recorded Time 4 text/html HypertensionReported bypatient.Notes:pt is taking medication and feeling fine. ALESHIA Ervin Attn: Accounting,[address] [place], [address], [facility] 12/04/2023 09:40:12 4 text/html HypertensionReported bypatient.Notes:pt is taking diltiazem CD 120 mg dailySinusitis/AllergyRep orted bypatient.Notes:Patient takes Flonase and antihistamine and Singulair Patient does have current prostate cancer that is being evaluated managed and treated with Urology. ALESHIA Ervin Attn: Accounting,[address] [place], [address], [facility] 06/28/2024 12:30:33 5 text/html HypertensionReported bypatient.Notes:pt is taking diltiazem CD 120 mg dailySinusitis/AllergyRep orted bypatient.Notes:Patient takes Flonase and antihistamine and Singulair Patient does have current prostate cancer that is being managed and treated with Urology. ALESHIA Ervin Attn: Accounting,[address] [place], [address], [facility] 12/27/2024 22:36:05
--- OUTSIDE RECORDS SUMMARY | 2025-02-20 06:56 | XMS_ITS | Data Portability ---
Author Organization [facility] Satellier, Main Office Address [address] [place] [address] Assessment No assessment recorded. Plan of Treatment Reminders Order Date Submit Date Provider Last Modified By Organization Details Last Modified Time Details Appointments None recorded. Lab CMP, serum or plasma 2022 023 [facility], [address]es, [place], [address], 3 05:05:44 CBC w/ auto diff 2022 023 [facility], [address], [place], [address], 3 05:05:46 TSH + free T4, serum 2022 023 [facility], [address], [place], [address], 3 05:05:42 urinalysis, complete 2022 023 [facility], [address], [place], [address], 3 05:05:47 lipid panel, serum 2022 023 [facility], [place], [address], 3 05:05:43 HbA1c (hemoglobin A1c), blood 2022 023 [facility], [place], [address], 3 05:05:45 Referral None recorded. Procedures lexiscan cardiolite stress test (PROC) - Approved [id number] 01/08/2023- 02/06/20232022 023 [facility], [address], [address], [place], [address], 14:53:42 colonoscopy procedure (PROC) 2022 023 JORGE Cuco Weeks MD, [address] [facility] [address], [address], [place], [address], 11:17:30 Surgeries None recorded. Imaging None recorded. Medication Orders tadalafil 20 mg [address] [facility]/Pharmacy #[id number], [address] [place], [address], 3 09:47:08 Wegovy 0.25 mg/0.5 mL subcutaneou s pen injector [address]/Pharmacy #[id number], [address] [place], [address], 3 14:18:48 Patient TargetsNo targets recorded. Patient InstructionsNo instructions recorded. Reason for Referral None Reported. Results Created Date Observation Date Name Description Value Unit Range Abnormal Flag Note LastModifiedBy Organization Detail LastModifiedTime 08/12/20 21 08/13/2021 CBC (INCL UDES DIFF/ PLT) monocytes 6.5 % normal Not Available [facility] [address] [place], [address], 08/13/2021 12:45:15 08/12/20 21 08/13/2021 CBC (INCL UDES DIFF/ PLT) eosinophils 3.6 % normal Not Available [facility] [address] [place], [address], 08/13/2021 12:45:15 08/12/20 21 08/13/2021 CBC (INCL UDES DIFF/ PLT) basophils 0.9 % normal Not Available [address], [address], 08/13/2021 12:45:15 08/12/20 21 08/13/2021 CBC (INCL UDES DIFF/ PLT) white blood cell count 6.9 thous and/u L 3.8-10 .8 normal Not Available [address], [address], 08/13/2021 12:45:15 08/12/2008/13/2021 CBC (INCL UDES DIFF/ PLT) red blood cell count 4.89 ayde on/uL 4.20-5 .80 normal Not Available [address], [address], 08/13/2021 12:45:15 08/12/20 21 08/13/2021 CBC (INCL UDES DIFF/ PLT) hemoglobin 14.6 g/dL 13.2-1 7.1 normal Not Available [address], [address], 08/13/2021 12:45:15 08/12/20 21 08/13/2021 CBC (INCL UDES DIFF/ PLT) hematocrit 43.1 % 38.5-5 0.0 normal Not Available [address], [address], 08/13/2021 12:45:15 08/12/2008/13/2021 CBC (INCL UDES DIFF/ PLT) MCV 88.1 fL 80.0-1 00.0 normal Not Available [address], [address], 08/13/2021 12:45:15 08/12/20 21 08/13/2021 CBC (INCL UDES DIFF/ PLT) MCH 29.9 pg 27.0-3 3.0 normal Not Available [address], [address], 08/13/2021 12:45:15 08/12/20 21 08/13/2021 CBC (INCL UDES DIFF/ PLT) MCHC 33.9 g/dL 32.0-3 6.0 normal Not Available [address], [address], 08/13/2021 12:45:15 08/12/2008/13/2021 CBC (INCL UDES DIFF/ PLT) RDW 12.2 % 11.0-1 5.0 normal Not Available [address], [address], 08/13/2021 12:45:15 08/12/20 21 08/13/2021 CBC (INCL UDES DIFF/ PLT) platelet count 350 thous and/u L 140-40 0 normal Not Available [address], [address], 08/13/2021 12:45:15 08/12/2008/13/2021 CBC (INCL UDES DIFF/ PLT) MPV 9.9 fL 7.5-12 .5 normal Not Available [address], [address], 08/13/2021 12:45:15 08/12/20 21 08/13/2021 CBC (INCL UDES DIFF/ PLT) absolute neutrophils 4395 cells /uL 1500-7 800 normal Not Available [address], [address], 08/13/2021 12:45:15 08/12/20 21 08/13/2021 CBC (INCL UDES DIFF/ PLT) absolute lymphocytes 1746 cells /uL 850-39 00 normal Not Available [address], [address], 08/13/2021 12:45:15 08/12/20 21 08/13/2021 CBC (INCL UDES DIFF/ PLT) absolute monocytes 449 cells /uL 200-95 0 normal Not Available [address], [address], 08/13/2021 12:45:15 08/12/2008/13/2021 CBC (INCL UDES DIFF/ PLT) absolute eosinophils 248 cells /uL 15-500 normal Not Available [facility] [address] [place] [address] [place], [address], 08/13/2021 12:45:15 08/12/2008/13/2021 CBC (INCL UDES DIFF/ PLT) absolute basophils 62 cells /uL 0-200 normal Not Available [address], [address], 08/13/2021 12:45:15 08/12/2008/13/2021 CBC (INCL UDES DIFF/ PLT) neutrophils 63.7 % normal Not Available [facility] [address], [address], 08/13/2021 12:45:15 08/12/2008/13/2021 CBC (INCL UDES DIFF/ PLT) lymphocytes 25.3 % normal Not Available [address], [address], 08/13/2021 12:45:15 08/12/2008/13/2021 HEMOG LOBIN A1C hemoglobin [...] diabe ricco for child yamilka. Not Available [address] [address] [place], [address], 08/13/2021 12:45:14 08/12/20 21 08/13/2021 COMPR EHENS JOVI METAB OLIC PANEL glucose 104 mg/dL 65-99 high Fasti ng refer ence inter angelina For someo ne witho ut known diabe ricco, a gluco se value betwe en 100 and 125 mg/dL is consi stent with predi abete s and shoul d be confi rmed with a follo w-up test. Not Available [address] [address] [place], [address], 08/13/2021 12:45:14 08/12/20 21 08/13/2021 COMPR EHENS JOVI METAB OLIC PANEL urea nitrogen (BUN) 14 mg/dL 7-25 normal Not Available [address] [address] [place], [address], 08/13/2021 12:45:14 08/12/20 21 08/13/2021 COMPR EHENS JOVI METAB OLIC PANEL potassium 4.4 mmol/ L 3.5-5. 3 normal Not Available [facility] [address] [place] [address] [place], [address], 08/13/2021 12:45:14 08/12/2008/13/2021 COMPR EHENS JOVI METAB OLIC PANEL creatinine 0.80 mg/dL 0.70-1 .33 normal For patie nts >49 years of age, the refer ence limit for Creat inine is appro ximat brenden 13% highe r for peopl e ident ified as Afric an-Am nelson n. Not Available [facility] [address] [place], [address], 08/13/2021 12:45:14 08/12/20 21 08/13/2021 COMPR EHENS JOVI METAB OLIC PANEL eGFR non-afr. burkinan 99 mL/mi n/1.7 3m2 > or = 60 normal Not Available [address] [address] [place], [address], 08/13/2021 12:45:14 08/12/20 21 08/13/2021 COMPR EHENS JOVI METAB OLIC PANEL eGFR 115 mL/mi n/1.7 3m2 > or = 60 normal Not Available [address] [address] [place], [address], 08/13/2021 12:45:14 08/12/20 21 08/13/2021 COMPR EHENS JOVI METAB OLIC PANEL BUN/creatini ne ratio not applic able (calc ) 6-22 Not Available [address] [address] [place], [address], 08/13/2021 12:45:14 08/12/20 21 08/13/2021 COMPR EHENS JOVI METAB OLIC PANEL sodium 138 mmol/ L 135-14 6 normal Not Available [address] [address] [place], [address], 08/13/2021 12:45:14 08/12/20 21 08/13/2021 COMPR EHENS JOVI METAB OLIC PANEL chloride 103 mmol/ L 98-110 normal Not Available [address] [address] [place], [address], 08/13/2021 12:45:14 08/12/20 21 08/13/2021 COMPR EHENS JOVI METAB OLIC PANEL carbon dioxide 27 mmol/ L 20-32 normal Not Available [address] [address] [place], [address], 08/13/2021 12:45:14 08/12/20 21 08/13/2021 COMPR EHENS JOVI METAB OLIC PANEL calcium 9.1 mg/dL 8.6-10 .3 normal Not Available [address], [address], 08/13/2021 12:45:14 08/12/20 21 08/13/2021 COMPR EHENS JOVI METAB OLIC PANEL protein, total 6.9 g/dL 6.1-8. 1 normal Not Available [address], [address], 08/13/2021 12:45:14 08/12/2008/13/2021 COMPR EHENS JOVI METAB OLIC PANEL albumin 4.4 g/dL 3.6-5. 1 normal Not Available [address], [address], 08/13/2021 12:45:14 08/12/20 21 08/13/2021 COMPR EHENS JOVI METAB OLIC PANEL globulin 2.5 g/dL_ (calc ) 1.9-3. 7 normal Not Available [address], [address], 08/13/2021 12:45:14 08/12/20 21 08/13/2021 COMPR EHENS JOVI METAB OLIC PANEL albumin/glob ulin ratio 1.8 (calc ) 1.0-2. 5 normal Not Available [address], [address], 08/13/2021 12:45:14 08/12/20 21 08/13/2021 COMPR EHENS JOVI METAB OLIC PANEL bilirubin, total 0.6 mg/dL 0.2-1. 2 normal Not Available [address], [address], 08/13/2021 12:45:14 08/12/20 21 08/13/2021 COMPR EHENS JOVI METAB OLIC PANEL alkaline phosphatase 69 U/L 35-144 normal Not Available [facility] [address] [place], [address], 08/13/2021 12:45:14 08/12/20 21 08/13/2021 COMPR EHENS JOVI METAB OLIC PANEL AST 24 U/L 10-35 normal Not Available [address] [address] [place], [address], 08/13/2021 12:45:14 08/12/20 21 08/13/2021 COMPR EHENS JOVI METAB OLIC PANEL ALT 26 U/L 9-46 normal Not Available [address] [address] [place], [address], 08/13/2021 12:45:14 08/12/20 21 08/13/2021 LIPID PANEL [...] 2061- 2068 (http ://ed ucati on.Qu Elida Un[employer]. com/f aq/FA Q164) Not Available [facility] [address] [place], [address], 08/13/2021 12:45:13 08/12/20 21 08/13/2021 LIPID PANEL WITH RATIO S cholesterol, total 172 mg/dL <200 normal Not Available [address] [address] [place], [address], 08/13/2021 12:45:13 08/12/20 21 08/13/2021 LIPID PANEL WITH RATIO S HDL cholesterol 48 mg/dL > or = 40 normal Not Available [address] [address] [place], [address], 08/13/2021 12:45:13 08/12/20 21 08/13/2021 LIPID PANEL WITH RATIO S triglyceride s 68 mg/dL <150 normal Not Available [address] [address] [place], [address], 08/13/2021 12:45:13 08/12/20 21 08/13/2021 LIPID PANEL WITH RATIO S chol/HDLC ratio 3.6 (calc ) <5.0 normal Not Available [address] [address] [place], [address], 08/13/2021 12:45:13 08/12/20 21 08/13/2021 LIPID PANEL WITH RATIO S LDL/HDL ratio 2.3 (calc ) Below [place] Risk: <2.28 [place] Risk: 2.29- 4.90 Moder ate Risk: 4.91- 7.12 High Risk: >7.13 Not Available [address] [address] [place], [address], 08/13/2021 12:45:13 08/12/20 21 08/13/2021 LIPID PANEL WITH RATIO S non HDL cholesterol 124 mg/dL _(girma c) <130 normal For patie nts with diabe ricco plus 1 major ASCVD risk facto r, treat ing to a non-H DL-C goal of <100 mg/dL (LDL- C of <70 mg/dL ) is mami klein optio n. Not Available [address] [address] [place], [address], 08/13/2021 12:45:13 08/04/20 22 08/06/2022 CBC (INCL UDES DIFF/ PLT) white blood cell count 6.6 thous and/u L 3.8-10 .8 normal Not Available [address], [address], 08/06/2022 12:56:17 08/04/20 22 08/06/2022 CBC (INCL UDES DIFF/ PLT) red blood cell count 4.77 ayde on/uL 4.20-5 .80 normal Not Available [address], [address], 08/06/2022 12:56:17 08/04/20 22 08/06/2022 CBC (INCL UDES DIFF/ PLT) hemoglobin 14.3 g/dL 13.2-1 7.1 normal Not Available [address], [address], 08/06/2022 12:56:17 08/04/20 22 08/06/2022 CBC (INCL UDES DIFF/ PLT) hematocrit 42.3 % 38.5-5 0.0 normal Not Available [address], [address], 08/06/2022 12:56:17 08/04/20 22 08/06/2022 CBC (INCL UDES DIFF/ PLT) MCV 88.7 fL 80.0-1 00.0 normal Not Available [address], [address], 08/06/2022 12:56:17 08/04/20 22 08/06/2022 CBC (INCL UDES DIFF/ PLT) MCH 30.0 pg 27.0-3 3.0 normal Not Available [address], [address], 08/06/2022 12:56:17 08/04/20 22 08/06/2022 CBC (INCL UDES DIFF/ PLT) MCHC 33.8 g/dL 32.0-3 6.0 normal Not Available [address], [address], 08/06/2022 12:56:17 08/04/20 22 08/06/2022 CBC (INCL UDES DIFF/ PLT) RDW 12.0 % 11.0-1 5.0 normal Not Available [address], [address], 08/06/2022 12:56:17 08/04/20 22 08/06/2022 CBC (INCL UDES DIFF/ PLT) platelet count 321 thous and/u L 140-40 0 normal Not Available [address], [address], 08/06/2022 12:56:17 08/04/20 22 08/06/2022 CBC (INCL UDES DIFF/ PLT) MPV 10.3 fL 7.5-12 .5 normal Not Available [address], [address], 08/06/2022 12:56:17 08/04/20 22 08/06/2022 CBC (INCL UDES DIFF/ PLT) absolute neutrophils 4072 cells /uL 1500-7 800 normal Not Available [address], [address], 08/06/2022 12:56:17 08/04/20 22 08/06/2022 CBC (INCL UDES DIFF/ PLT) absolute lymphocytes 1762 cells /uL 850-39 00 normal Not Available [address], [address], 08/06/2022 12:56:17 08/04/20 22 08/06/2022 CBC (INCL UDES DIFF/ PLT) absolute monocytes 515 cells /uL 200-95 0 normal Not Available [address], [address], 08/06/2022 12:56:17 08/04/20 22 08/06/2022 CBC (INCL UDES DIFF/ PLT) absolute eosinophils 211 cells /uL 15-500 normal Not Available [address], [address], 08/06/2022 12:56:17 08/04/20 22 08/06/2022 CBC (INCL UDES DIFF/ PLT) absolute basophils 40 cells /uL 0-200 normal Not Available [facility] [address], [address], 08/06/2022 12:56:17 08/04/20 22 08/06/2022 CBC (INCL UDES DIFF/ PLT) neutrophils 61.7 % normal Not Available [address], [address], 08/06/2022 12:56:17 08/04/20 22 08/06/2022 CBC (INCL UDES DIFF/ PLT) lymphocytes 26.7 % normal Not Available [address], [address], 08/06/2022 12:56:17 08/04/20 22 08/06/2022 CBC (INCL UDES DIFF/ PLT) monocytes 7.8 % normal Not Available [address], [address], 08/06/2022 12:56:17 08/04/20 22 08/06/2022 CBC (INCL UDES DIFF/ PLT) eosinophils 3.2 % normal Not Available [address], [address], 08/06/2022 12:56:17 08/04/20 22 08/06/2022 CBC (INCL UDES DIFF/ PLT) basophils 0.6 % normal Not Available [address], [address], 08/06/2022 12:56:17 08/04/20 22 08/06/2022 HEMOG LOBIN [...] diabe ricco for child yamilka. Not Available [facility] [address] [place], [address], 08/06/2022 12:56:16 08/04/20 22 08/06/2022 COMPR EHENS [...] kdoqi /gfr% 5Fcal culat or Not Available [facility] [address] [place], [address], 08/06/2022 12:56:16 08/04/20 22 08/06/2022 COMPR EHENS JOVI METAB OLIC PANEL glucose 93 mg/dL 65-99 normal Fasti ng refer ence inter angelina Not Available [facility] [address] [place], [address], 08/06/2022 12:56:16 08/04/20 22 08/06/2022 COMPR EHENS JOVI METAB OLIC PANEL urea nitrogen (BUN) 17 mg/dL 7-25 normal Not Available [address] [address] [place], [address], 08/06/2022 12:56:16 08/04/20 22 08/06/2022 COMPR EHENS JOVI METAB OLIC PANEL creatinine 0.77 mg/dL 0.70-1 .30 normal Not Available [address], [address], 08/06/2022 12:56:16 08/04/20 22 08/06/2022 COMPR EHENS JOVI METAB OLIC PANEL BUN/creatini ne ratio not applic able (calc ) 6-22 Not Available [address], [address], 08/06/2022 12:56:16 08/04/20 22 08/06/2022 COMPR EHENS JOVI METAB OLIC PANEL sodium 138 mmol/ L 135-14 6 normal Not Available [address], [address], 08/06/2022 12:56:16 08/04/20 22 08/06/2022 COMPR EHENS JOVI METAB OLIC PANEL potassium 4.7 mmol/ L 3.5-5. 3 normal Not Available [address], [address], 08/06/2022 12:56:16 08/04/20 22 08/06/2022 COMPR EHENS JOVI METAB OLIC PANEL chloride 104 mmol/ L 98-110 normal Not Available [address], [address], 08/06/2022 12:56:16 08/04/20 22 08/06/2022 COMPR EHENS JOVI METAB OLIC PANEL carbon dioxide 27 mmol/ L 20-32 normal Not Available [address], [address], 08/06/2022 12:56:16 08/04/20 22 08/06/2022 COMPR EHENS JOVI METAB OLIC PANEL calcium 9.2 mg/dL 8.6-10 .3 normal Not Available [address], [address], 08/06/2022 12:56:16 08/04/20 22 08/06/2022 COMPR EHENS JOVI METAB OLIC PANEL protein, total 6.8 g/dL 6.1-8. 1 normal Not Available [address], [address], 08/06/2022 12:56:16 08/04/20 22 08/06/2022 COMPR EHENS JOVI METAB OLIC PANEL albumin 4.1 g/dL 3.6-5. 1 normal Not Available [address], [address], 08/06/2022 12:56:16 08/04/20 22 08/06/2022 COMPR EHENS JOVI METAB OLIC PANEL globulin 2.7 g/dL_ (calc ) 1.9-3. 7 normal Not Available [address], [address], 08/06/2022 12:56:16 08/04/20 22 08/06/2022 COMPR EHENS JOVI METAB OLIC PANEL albumin/glob ulin ratio 1.5 (calc ) 1.0-2. 5 normal Not Available [address], [address], 08/06/2022 12:56:16 08/04/20 22 08/06/2022 COMPR EHENS JOVI METAB OLIC PANEL bilirubin, total 0.6 mg/dL 0.2-1. 2 normal Not Available [address], [address], 08/06/2022 12:56:16 08/04/20 22 08/06/2022 COMPR EHENS JOVI METAB OLIC PANEL alkaline phosphatase 73 U/L 35-144 normal Not Available [facility] [address] [place], [address], 08/06/2022 12:56:16 08/04/20 22 08/06/2022 COMPR EHENS JOVI METAB OLIC PANEL AST 18 U/L 10-35 normal Not Available [facility] [address] [place], [address], 08/06/2022 12:56:16 08/04/20 22 08/06/2022 COMPR EHENS JOVI METAB OLIC PANEL ALT 22 U/L 9-46 normal Not Available [facility] [place] [address] [place], [address], 08/06/2022 12:56:16 08/04/20 22 08/06/2022 LIPID PANEL [...] 2068 (http ://ed ucati on.Qu Elida [facility]. com/f aq/FA Q164) Not Available [facility] [address] [place], [address], 08/06/2022 12:56:15 08/04/20 22 08/06/2022 LIPID PANEL WITH RATIO S cholesterol, total 181 mg/dL <200 normal Not Available [facility] [address] [place], [address], 08/06/2022 12:56:15 08/04/20 22 08/06/2022 LIPID PANEL WITH RATIO S HDL cholesterol 50 mg/dL > or = 40 normal Not Available [address], [address], 08/06/2022 12:56:15 08/04/20 22 08/06/2022 LIPID PANEL WITH RATIO S triglyceride s 70 mg/dL <150 normal Not Available [address], [address], 08/06/2022 12:56:15 08/04/20 22 08/06/2022 LIPID PANEL WITH RATIO S chol/HDLC ratio 3.6 (calc ) <5.0 normal Not Available [address], [address], 08/06/2022 12:56:15 08/04/20 22 08/06/2022 LIPID PANEL WITH RATIO S LDL/HDL ratio 2.3 (calc ) Below [place] Risk: <2.28 [place] Risk: 2.29- 4.90 Moder ate Risk: 4.91- 7.12 High Risk: >7.13 Not Available [address], [address], 08/06/2022 12:56:15 08/04/20 22 08/06/2022 LIPID PANEL WITH RATIO S non HDL cholesterol 131 mg/dL _(girma c) <130 high For patie nts with diabe ricco plus 1 major ASCVD risk facto r, treat ing to a non-H DL-C goal of <100 mg/dL (LDL- C of <70 mg/dL ) is consi ligia horton pemaurice c optio n. Not Available [address], [address], 08/06/2022 12:56:15 08/04/20 22 08/06/2022 TSH+F REE T4 TSH 1.84 mIU/L 0.40-4 .50 normal Not Available [address] [place], [address], 08/06/2022 12:56:14 08/04/2008/06/2022 TSH+F REE T4 T4, free 1.0 NG/dL 0.8-1. 8 normal Not Available [address], [address], 08/06/2022 12:56:14 06/12/2006/14/2023 TSH+F REE T4 TSH 2.20 mIU/L 0.40-4 .50 normal Not Available [address], [address], 06/14/2023 05:05:42 06/12/20 23 06/14/2023 TSH+F REE T4 T4, free 1.0 NG/dL 0.8-1. 8 normal Not Available [address], [address], 06/14/2023 05:05:42 06/12/20 23 06/14/2023 LIPID PANEL WITH RATIO S cholesterol, total 198 mg/dL <200 normal Not Available [address], [address], 06/14/2023 05:05:43 06/12/20 23 06/14/2023 LIPID PANEL WITH RATIO S HDL cholesterol 55 mg/dL > or = 40 normal Not Available [address], [address], 06/14/2023 05:05:43 06/12/20 23 06/14/2023 LIPID PANEL WITH RATIO S triglyceride s 114 mg/dL <150 normal Not Available [address], [address], 06/14/2023 05:05:43 06/12/20 23 06/14/2023 LIPID PANEL WITH RATIO S LDL-choleste rol 121 mg/dL _(girma c) high Refer ence range : <100 Cynthia able range <100 mg/dL for prima ry preve ntion ; <70 mg/dL for patie nts with CHD or diabe tic patie nts with > or = 2 CHD risk facto rs. LDL-C is now calcu lated using the [facility] calcu silvina gordon, which is a valid ated novel metho d provi ding rosalba r accur acy than the Fried gerry equat ion in the estim ation of LDL-C . Lily gordon SS et al. JIMENA. 2013; 310(1 9): 2061- 2068 (http ://ed ucati on.Qu estDi [employer]. com/f aq/FA Q164) Not Available [facility] [address], [address], 06/14/2023 05:05:43 06/12/20 23 06/14/2023 LIPID PANEL WITH RATIO S chol/HDLC ratio 3.6 (calc ) <5.0 normal Not Available [facility] [address], [address], 06/14/2023 05:05:43 06/12/20 23 06/14/2023 LIPID PANEL WITH RATIO S LDL/HDL ratio 2.2 (calc ) Below [place] Risk: <2.28 [place] Risk: 2.29- 4.90 Moder ate Risk: 4.91- 7.12 High Risk: >7.13 Not Available [facility] [address], [address], 06/14/2023 05:05:43 06/12/20 23 06/14/2023 LIPID PANEL WITH RATIO S non HDL cholesterol 143 mg/dL _(girma c) <130 high For patie nts with diabe ricco plus 1 major ASCVD risk facto r, treat ing to a non-H DL-C goal of <100 mg/dL (LDL- C of <70 mg/dL ) is consi rond a sol pemaurice c optio n. Not Available [facility] [address], [address], 06/14/2023 05:05:43 06/12/20 23 06/14/2023 COMPR EHENS JOVI METAB OLIC PANEL glucose 94 mg/dL 65-99 normal Fasti ng refer ence inter angelina Not Available [address], [address], 06/14/2023 05:05:44 06/12/20 23 06/14/2023 COMPR EHENS JOVI METAB OLIC PANEL urea nitrogen (BUN) 14 mg/dL 7-25 normal Not Available [address], [address], 06/14/2023 05:05:44 06/12/20 23 06/14/2023 COMPR EHENS JOVI METAB OLIC PANEL creatinine 0.77 mg/dL 0.70-1 .30 normal Not Available [address], [address], 06/14/2023 05:05:44 06/12/20 23 06/14/2023 COMPR EHENS JOVI METAB OLIC PANEL eGFR 103 mL/mi n/1.7 3m2 > or = 60 normal Not Available [address], [address], 06/14/2023 05:05:44 06/12/20 23 06/14/2023 COMPR EHENS JOVI METAB OLIC PANEL BUN/creatini ne ratio SEE NOTE: (calc ) 6-22 Not Repor luis enrique: BUN and Creat inine are withi n refer ence range . Not Available [address], [address], 06/14/2023 05:05:44 06/12/20 23 06/14/2023 COMPR EHENS JOVI METAB OLIC PANEL sodium 138 mmol/ L 135-14 6 normal Not Available [address], [address], 06/14/2023 05:05:44 09/13/20 23 06/14/2023 COMPR EHENS JOVI METAB OLIC PANEL potassium 4.3 mmol/ L 3.5-5. 3 normal Not Available [address], [address], 06/14/2023 05:05:44 06/12/20 23 06/14/2023 COMPR EHENS JOVI METAB OLIC PANEL chloride 101 mmol/ L 98-110 normal Not Available [address], [address], 06/14/2023 05:05:44 06/12/20 23 06/14/2023 COMPR EHENS JOVI METAB OLIC PANEL carbon dioxide 29 mmol/ L 20-32 normal Not Available [address], [address], 06/14/2023 05:05:44 06/12/20 23 06/14/2023 COMPR EHENS JOVI METAB OLIC PANEL calcium 9.2 mg/dL 8.6-10 .3 normal Not Available [address], [address], 06/14/2023 05:05:44 06/12/20 23 06/14/2023 COMPR EHENS JOVI METAB OLIC PANEL protein, total 7.0 g/dL 6.1-8. 1 normal Not Available [address], [address], 06/14/2023 05:05:44 06/12/20 23 06/14/2023 COMPR EHENS JOVI METAB OLIC PANEL albumin 4.4 g/dL 3.6-5. 1 normal Not Available [address], [address], 06/14/2023 05:05:44 06/12/20 23 06/14/2023 COMPR EHENS JOVI METAB OLIC PANEL globulin 2.6 g/dL_ (calc ) 1.9-3. 7 normal Not Available [address], [address], 06/14/2023 05:05:44 06/12/2006/14/2023 COMPR EHENS JOVI METAB OLIC PANEL albumin/glob ulin ratio 1.7 (calc ) 1.0-2. 5 normal Not Available [address], [address], 06/14/2023 05:05:44 06/12/2006/14/2023 COMPR EHENS JOVI METAB OLIC PANEL bilirubin, total 0.5 mg/dL 0.2-1. 2 normal Not Available [address], [address], 06/14/2023 05:05:44 06/12/2006/14/2023 COMPR EHENS JOVI METAB OLIC PANEL alkaline phosphatase 82 U/L 35-144 normal Not Available [address], [address], 06/14/2023 05:05:44 06/12/2006/14/2023 COMPR EHENS JOVI METAB OLIC PANEL AST 16 U/L 10-35 normal Not Available [address], [address], 06/14/2023 05:05:44 06/12/2006/14/2023 COMPR EHENS JOVI METAB OLIC PANEL ALT 20 U/L 9-46 normal Not Available [address], [address], 06/14/2023 05:05:44 06/12/2006/14/2023 HEMOG LOBIN A1C hemoglobin [...] diabe ricco for child yamilka. Not Available NotaryAct [facility] [address] [place], [address], 06/14/2023 05:05:45 06/12/2006/14/2023 CBC (INCL UDES DIFF/ PLT) white blood cell count 7.2 thous and/u L 3.8-10 .8 normal Not Available [facility] [address] [address] [place], [address], 06/14/2023 05:05:46 06/12/2006/14/2023 CBC (INCL UDES DIFF/ PLT) red blood cell count 4.79 ayde on/uL 4.20-5 .80 normal Not Available [facility] [address] [address] [place], [address], 06/14/2023 05:05:46 06/12/2006/14/2023 CBC (INCL UDES DIFF/ PLT) hemoglobin 14.7 g/dL 13.2-1 7.1 normal Not Available [facility] [address] [address] [place], [address], 06/14/2023 05:05:46 06/12/2006/14/2023 CBC (INCL UDES DIFF/ PLT) hematocrit 43.7 % 38.5-5 0.0 normal Not Available [facility] [address] [address] [place], [address], 06/14/2023 05:05:46 06/12/20 23 06/14/2023 CBC (INCL UDES DIFF/ PLT) MCV 91.2 fL 80.0-1 00.0 normal Not Available [address], [address], 06/14/2023 05:05:46 06/12/20 23 06/14/2023 CBC (INCL UDES DIFF/ PLT) MCH 30.7 pg 27.0-3 3.0 normal Not Available [address], [address], 06/14/2023 05:05:46 06/12/20 23 06/14/2023 CBC (INCL UDES DIFF/ PLT) MCHC 33.6 g/dL 32.0-3 6.0 normal Not Available [address], [address], 06/14/2023 05:05:46 06/12/20 23 06/14/2023 CBC (INCL UDES DIFF/ PLT) RDW 12.6 % 11.0-1 5.0 normal Not Available [address], [address], 06/14/2023 05:05:46 06/12/20 23 06/14/2023 CBC (INCL UDES DIFF/ PLT) platelet count 301 thous and/u L 140-40 0 normal Not Available [address], [address], 06/14/2023 05:05:46 06/12/20 23 06/14/2023 CBC (INCL UDES DIFF/ PLT) MPV 9.6 fL 7.5-12 .5 normal Not Available [address], [address], 06/14/2023 05:05:46 06/12/20 23 06/14/2023 CBC (INCL UDES DIFF/ PLT) absolute neutrophils 4759 cells /uL 1500-7 800 normal Not Available [address], [address], 06/14/2023 05:05:46 06/12/20 23 06/14/2023 CBC (INCL UDES DIFF/ PLT) absolute lymphocytes 1620 cells /uL 850-39 00 normal Not Available [address], [address], 06/14/2023 05:05:46 06/12/20 23 06/14/2023 CBC (INCL UDES DIFF/ PLT) absolute monocytes 576 cells /uL 200-95 0 normal Not Available [address], [address], 06/14/2023 05:05:46 06/12/20 23 06/14/2023 CBC (INCL UDES DIFF/ PLT) absolute eosinophils 202 cells /uL 15-500 normal Not Available [address], [address], 06/14/2023 05:05:46 06/12/20 23 06/14/2023 CBC (INCL UDES DIFF/ PLT) absolute basophils 43 cells /uL 0-200 normal Not Available [address], [address], 06/14/2023 05:05:46 06/12/20 23 06/14/2023 CBC (INCL UDES DIFF/ PLT) neutrophils 66.1 % normal Not Available [address], [address], 06/14/2023 05:05:46 06/12/2006/14/2023 CBC (INCL UDES DIFF/ PLT) lymphocytes 22.5 % normal Not Available [address], [address], 06/14/2023 05:05:46 06/12/20 23 06/14/2023 CBC (INCL UDES DIFF/ PLT) monocytes 8.0 % normal Not Available [facility] [address], [address], 06/14/2023 05:05:46 06/12/20 23 06/14/2023 CBC (INCL UDES DIFF/ PLT) eosinophils 2.8 % normal Not Available [facility] [address], [address], 06/14/2023 05:05:46 06/12/2006/14/2023 CBC (INCL UDES DIFF/ PLT) basophils 0.6 % normal Not Available [facility] [address], [address], 06/14/2023 05:05:46 06/12/2006/14/2023 URINA LYSIS , COMPL ETE color YELLOW yellow normal Not Available [facility] [address], [address], 06/14/2023 05:05:47 06/12/2006/14/2023 URINA LYSIS , COMPL ETE appearance CLEAR clear normal Not Available [address], [address], 06/14/2023 05:05:47 06/12/2006/14/2023 URINA LYSIS , COMPL ETE specific gravity 1.013 1.001- 1.035 normal Not Available [facility] [address], [address], 06/14/2023 05:05:47 06/12/2006/14/2023 URINA LYSIS , COMPL ETE pH 7.0 5.0-8. 0 normal Not Available [address], [address], 06/14/2023 05:05:47 06/12/2006/14/2023 URINA LYSIS , COMPL ETE glucose NEGATI VE negati ve normal Not Available [facility] [address], [place], [address], 06/14/2023 05:05:47 06/12/20 23 06/14/2023 URINA LYSIS , COMPL ETE bilirubin NEGATI VE negati ve normal Not Available [facility] [address] [address] [place], [address], 06/14/2023 05:05:47 06/12/2006/14/2023 URINA LYSIS , COMPL ETE ketones NEGATI VE negati ve normal Not Available [facility] [address] [address] [place], [address], 06/14/2023 05:05:47 06/12/2006/14/2023 URINA LYSIS , COMPL ETE occult blood NEGATI VE negati ve normal Not Available [address], [address], 06/14/2023 05:05:47 06/12/20 23 06/14/2023 URINA LYSIS , COMPL ETE protein NEGATI VE negati ve normal Not Available [address], [address], 06/14/2023 05:05:47 06/12/2006/14/2023 URINA LYSIS , COMPL ETE nitrite NEGATI VE negati ve normal Not Available [address], [address], 06/14/2023 05:05:47 06/12/2006/14/2023 URINA LYSIS , COMPL ETE leukocyte esterase NEGATI VE negati ve normal Not Available [address], [address], 06/14/2023 05:05:47 06/12/2006/14/2023 URINA LYSIS , COMPL ETE WBC NONE SEEN /hpf < or = 5 normal Not Available [address], [address], 06/14/2023 05:05:47 06/12/20 23 06/14/2023 URINA LYSIS , COMPL ETE RBC NONE SEEN /hpf < or = 2 normal Not Available [address] [address] [place], [address], 06/14/2023 05:05:47 06/12/20 23 06/14/2023 URINA LYSIS , COMPL ETE squamous epithelial cells NONE SEEN /hpf < or = 5 normal Not Available [facility] [address] [address] [place], [address], 06/14/2023 05:05:47 06/12/2006/14/2023 URINA LYSIS , COMPL ETE bacteria NONE SEEN /hpf none seen normal Not Available [address], [address], 06/14/2023 05:05:47 06/12/20 23 06/14/2023 URINA LYSIS , COMPL ETE hyaline cast NONE SEEN /lpf none seen normal Not Available [address], [address], 06/14/2023 05:05:47 06/12/2006/14/2023 EXTRA SPECI MEN extra tube received An extra speci men was recei luis daniel with no test reque sted. The [facility] case addit ional testi ng is neede allie Major e [facility] . Not Available [facility] [address], [address], 06/14/2023 05:05:48 06/12/2006/14/2023 EXTRA SPECI MEN specimen type received Urine Not Available [address], [address], 06/14/2023 05:05:48 06/12/20 06/14/2023 CULTU RE, URINE , ROUTI NE culture, urine, routine CULTU RE, URINE , ROUTI NE Micro Numbe r: [id number] Test Statu s: Final Speci men [...] or addit ional testi ng. Not Available [address] [address] [place], [address], 06/14/2023 05:05:48 05/16/20 24 05/19/2024 TSH+F REE T4 TSH 1.48 mIU/L 0.40-4 .50 normal Not Available [facility] [address] [address] [place], [address], 05/19/2024 03:49:49 05/16/2005/19/2024 TSH+F REE T4 T4, free 1.2 NG/dL 0.8-1. 8 normal Not Available [facility] [address] [address] [place], [address], 05/19/2024 03:49:49 05/16/20 24 05/19/2024 LIPID PANEL WITH RATIO S cholesterol, total 177 mg/dL <200 normal Not Available [facility] [address] [address] [place], [address], 05/19/2024 03:49:49 05/16/20 24 05/19/2024 LIPID PANEL WITH RATIO S HDL cholesterol 51 mg/dL > or = 40 normal Not Available [facility] [address] [address] [place], [address], 05/19/2024 03:49:49 05/16/20 24 05/19/2024 LIPID PANEL WITH RATIO S triglyceride s 60 mg/dL <150 normal Not Available [facility] [address] [address] [place], [address], 05/19/2024 03:49:49 05/16/20 24 05/19/2024 LIPID PANEL [...] 2068 (http ://ed ucati on.Qu [facility]. com/f aq/FA Q164) Not Available [facility] [address] [place], [address], 05/19/2024 03:49:49 05/16/20 24 05/19/2024 LIPID PANEL WITH RATIO S chol/HDLC ratio 3.5 (calc ) <5.0 normal Not Available [facility] [address] [place], [address], 05/19/2024 03:49:49 05/16/20 05/19/2024 LIPID PANEL WITH RATIO S LDL/HDL ratio 2.2 (calc ) Below [place] Risk: <2.28 [place] Risk: 2.29- 4.90 Moder ate Risk: 4.91- 7.12 High Risk: >7.13 Not Available [address], [address], 05/19/2024 03:49:49 05/16/20 24 05/19/2024 LIPID PANEL WITH RATIO S non HDL cholesterol 126 mg/dL _(girma c) <130 normal For patie nts with diabe ricco plus 1 major ASCVD risk facto r, treat ing to a non-H DL-C goal of <100 mg/dL (LDL- C of <70 mg/dL ) is consi dered a thera peuti c optio n. Not Available [address], [address], 05/19/2024 03:49:49 05/16/20 24 05/19/2024 COMPR EHENS JOVI METAB OLIC PANEL glucose 109 mg/dL 65-99 high Fasti ng refer ence inter angelina For someo ne witho ut known diabe ricco, a gluco se value betwe en 100 and 125 mg/dL is consi stent with predi abete s and shoul d be confi rmed with a follo w-up test. Not Available [address], [address], 05/19/2024 03:49:50 05/16/20 24 05/19/2024 COMPR EHENS JOVI METAB OLIC PANEL urea nitrogen (BUN) 13 mg/dL 7-25 normal Not Available [address], [address], 05/19/2024 03:49:50 05/16/20 24 05/19/2024 COMPR EHENS JOVI METAB OLIC PANEL creatinine 0.82 mg/dL 0.70-1 .35 normal Not Available [facility] [address] [place], [address], 05/19/2024 03:49:50 05/16/20 24 05/19/2024 COMPR EHENS JOVI METAB OLIC PANEL eGFR 101 mL/mi n/1.7 3m2 > or = 60 normal Not Available [address], [address], 05/19/2024 03:49:50 05/16/20 24 05/19/2024 COMPR EHENS JOVI METAB OLIC PANEL BUN/creatini ne ratio SEE NOTE: (calc ) 6-22 Not Repor luis enrique: BUN and Creat inine are withi n refer ence range . Not Available [address], [address], 05/19/2024 03:49:50 05/16/20 24 05/19/2024 COMPR EHENS JOVI METAB OLIC PANEL sodium 138 mmol/ L 135-14 6 normal Not Available [address], [address], 05/19/2024 03:49:50 05/16/20 24 05/19/2024 COMPR EHENS JOVI METAB OLIC PANEL potassium 4.6 mmol/ L 3.5-5. 3 normal Not Available [address], [address], 05/19/2024 03:49:50 05/16/20 24 05/19/2024 COMPR EHENS JOVI METAB OLIC PANEL chloride 102 mmol/ L 98-110 normal Not Available [address], [address], 05/19/2024 03:49:50 05/16/20 24 05/19/2024 COMPR EHENS JOVI METAB OLIC PANEL carbon dioxide 29 mmol/ L 20-32 normal Not Available [address], [address], 05/19/2024 03:49:50 05/16/20 24 05/19/2024 COMPR EHENS JOVI METAB OLIC PANEL calcium 9.2 mg/dL 8.6-10 .3 normal Not Available [address], [address], 05/19/2024 03:49:50 05/16/20 24 05/19/2024 COMPR EHENS JOVI METAB OLIC PANEL protein, total 7.0 g/dL 6.1-8. 1 normal Not Available [address], [address], 05/19/2024 03:49:50 05/16/2005/19/2024 COMPR EHENS JOVI METAB OLIC PANEL albumin 4.2 g/dL 3.6-5. 1 normal Not Available [address], [address], 05/19/2024 03:49:50 05/16/20 24 05/19/2024 COMPR EHENS JOVI METAB OLIC PANEL globulin 2.8 g/dL_ (calc ) 1.9-3. 7 normal Not Available [address], [address], 05/19/2024 03:49:50 05/16/20 24 05/19/2024 COMPR EHENS JOVI METAB OLIC PANEL albumin/glob ulin ratio 1.5 (calc ) 1.0-2. 5 normal Not Available [address], [address], 05/19/2024 03:49:50 05/16/20 24 05/19/2024 COMPR EHENS JOVI METAB OLIC PANEL bilirubin, total 0.4 mg/dL 0.2-1. 2 normal Not Available [address], [address], 05/19/2024 03:49:50 05/16/20 24 05/19/2024 COMPR EHENS JOVI METAB OLIC PANEL alkaline phosphatase 88 U/L 35-144 normal Not Available [facility] [address] [place], [address], 05/19/2024 03:49:50 05/16/20 24 05/19/2024 COMPR EHENS JOVI METAB OLIC PANEL AST 17 U/L 10-35 normal Not Available [facility] [address] [address] [place], [address], 05/19/2024 03:49:50 05/16/20 24 05/19/2024 COMPR EHENS JOVI METAB OLIC PANEL ALT 19 U/L 9-46 normal Not Available [address] [address] [place], [address], 05/19/2024 03:49:50 05/16/20 24 05/19/2024 HEMOG LOBIN [...] y [facility] hemog lobin Stand ardiz ation Progr am. Note that not all indiv idual s will have had a shift in their resul ts and direc t ganga rison s betwe en histo rical and curre nt resul ts for testi ng condu cted on diffe rent platf orms is not recom babs d. Not Available [facility] [address], [address], 05/19/2024 03:49:50 05/16/20 24 05/19/2024 CBC (INCL UDES DIFF/ PLT) white blood cell count 5.7 thous and/u L 3.8-10 .8 normal Not Available [address], [address], 05/19/2024 03:49:50 05/16/20 24 05/19/2024 CBC (INCL UDES DIFF/ PLT) red blood cell count 4.80 ayde on/uL 4.20-5 .80 normal Not Available [address], [address], 05/19/2024 03:49:50 05/16/20 24 05/19/2024 CBC (INCL UDES DIFF/ PLT) hemoglobin 14.5 g/dL 13.2-1 7.1 normal Not Available [facility] [address], [address], 05/19/2024 03:49:50 05/16/20 24 05/19/2024 CBC (INCL UDES DIFF/ PLT) hematocrit 44.1 % 38.5-5 0.0 normal Not Available [facility] [address], [address], 05/19/2024 03:49:50 05/16/20 24 05/19/2024 CBC (INCL UDES DIFF/ PLT) MCV 91.9 fL 80.0-1 00.0 normal Not Available [address], [address], 05/19/2024 03:49:50 05/16/20 24 05/19/2024 CBC (INCL UDES DIFF/ PLT) MCH 30.2 pg 27.0-3 3.0 normal Not Available [address], [address], 05/19/2024 03:49:50 05/16/20 24 05/19/2024 CBC (INCL UDES DIFF/ PLT) MCHC 32.9 g/dL 32.0-3 6.0 normal Not Available [address], [address], 05/19/2024 03:49:50 05/16/20 24 05/19/2024 CBC (INCL UDES DIFF/ PLT) RDW 12.7 % 11.0-1 5.0 normal Not Available [address], [address], 05/19/2024 03:49:50 05/16/2005/19/2024 CBC (INCL UDES DIFF/ PLT) platelet count 273 thous and/u L 140-40 0 normal Not Available [address], [address], 05/19/2024 03:49:50 05/16/20 24 05/19/2024 CBC (INCL UDES DIFF/ PLT) MPV 10.0 fL 7.5-12 .5 normal Not Available [address], [address], 05/19/2024 03:49:50 05/16/20 24 05/19/2024 CBC (INCL UDES DIFF/ PLT) absolute neutrophils 2958 cells /uL 1500-7 800 normal Not Available [address], [address], 05/19/2024 03:49:50 05/16/20 24 05/19/2024 CBC (INCL UDES DIFF/ PLT) absolute lymphocytes 1613 cells /uL 850-39 00 normal Not Available [address], [address], 05/19/2024 03:49:50 05/16/20 24 05/19/2024 CBC (INCL UDES DIFF/ PLT) absolute monocytes 604 cells /uL 200-95 0 normal Not Available [address], [address], 05/19/2024 03:49:50 05/16/2005/19/2024 CBC (INCL UDES DIFF/ PLT) absolute eosinophils 485 cells /uL 15-500 normal Not Available [address], [address], 05/19/2024 03:49:50 05/16/20 24 05/19/2024 CBC (INCL UDES DIFF/ PLT) absolute basophils 40 cells /uL 0-200 normal Not Available [address], [address], 05/19/2024 03:49:50 05/16/20 24 05/19/2024 CBC (INCL UDES DIFF/ PLT) neutrophils 51.9 % normal Not Available [address], [address], 05/19/2024 03:49:50 05/16/2005/19/2024 CBC (INCL UDES DIFF/ PLT) lymphocytes 28.3 % normal Not Available [address], [address], 05/19/2024 03:49:50 05/16/20 24 05/19/2024 CBC (INCL UDES DIFF/ PLT) monocytes 10.6 % normal Not Available [address], [address], 05/19/2024 03:49:50 05/16/20 24 05/19/2024 CBC (INCL UDES DIFF/ PLT) eosinophils 8.5 % normal Not Available [address], [address], 05/19/2024 03:49:50 05/16/20 24 05/19/2024 CBC (INCL UDES DIFF/ PLT) basophils 0.7 % normal Not Available [address], [address], 05/19/2024 03:49:50 05/16/2005/19/2024 URINA LYSIS , COMPL ETE color YELLOW yellow normal Not Available [address], [address], 05/19/2024 03:49:51 05/16/2005/19/2024 URINA LYSIS , COMPL ETE appearance CLEAR clear normal Not Available [address], [address], 05/19/2024 03:49:51 05/16/2005/19/2024 URINA LYSIS , COMPL ETE specific gravity 1.020 1.001- 1.035 normal Not Available [address], [address], 05/19/2024 03:49:51 05/16/2005/19/2024 URINA LYSIS , COMPL ETE pH 5.5 5.0-8. 0 normal Not Available [address], [address], 05/19/2024 03:49:51 05/16/2005/19/2024 URINA LYSIS , COMPL ETE glucose NEGATI VE negati ve normal Not Available [address], [address], 05/19/2024 03:49:51 05/16/20 24 05/19/2024 URINA LYSIS , COMPL ETE bilirubin NEGATI VE negati ve normal Not Available [address], [address], 05/19/2024 03:49:51 05/16/20 24 05/19/2024 URINA LYSIS , COMPL ETE ketones NEGATI VE negati ve normal Not Available [address], [address], 05/19/2024 03:49:51 05/16/2005/19/2024 URINA LYSIS , COMPL ETE occult blood NEGATI VE negati ve normal Not Available [address], [address], 05/19/2024 03:49:51 05/16/20 24 05/19/2024 URINA LYSIS , COMPL ETE protein NEGATI VE negati ve normal Not Available [address], [address], 05/19/2024 03:49:51 05/16/20 24 05/19/2024 URINA LYSIS , COMPL ETE nitrite NEGATI VE negati ve normal Not Available [address], [address], 05/19/2024 03:49:51 05/16/20 24 05/19/2024 URINA LYSIS , COMPL ETE leukocyte esterase NEGATI VE negati ve normal Not Available [address], [address], 05/19/2024 03:49:51 05/16/20 24 05/19/2024 URINA LYSIS , COMPL ETE WBC NONE SEEN /hpf < or = 5 normal Not Available [address], [place], [address], 05/19/2024 03:49:51 05/16/20 24 05/19/2024 URINA LYSIS , COMPL ETE RBC NONE SEEN /hpf < or = 2 normal Not Available [facility] [address], [address], 05/19/2024 03:49:51 05/16/20 24 05/19/2024 URINA LYSIS , COMPL ETE squamous epithelial cells NONE SEEN /hpf < or = 5 normal Not Available [facility] [address], [address], 05/19/2024 03:49:51 05/16/20 24 05/19/2024 URINA LYSIS , COMPL ETE bacteria NONE SEEN /hpf none seen normal Not Available [address], [address], 05/19/2024 03:49:51 05/16/20 24 05/19/2024 URINA LYSIS , COMPL ETE hyaline cast NONE SEEN /lpf none seen normal Not Available [address], [address], 05/19/2024 03:49:51 05/16/20 24 05/19/2024 EXTRA SPECI MEN extra tube received An extra speci men was recei luis daniel with no test reque sted. The speci men will be maint ained in [facility] in case addit ional testi ng is gregorio Major e call [facility] . Not Available [facility] [address], [address], 05/19/2024 03:49:51 05/16/20 24 05/19/2024 EXTRA SPECI MEN specimen type received Urine Not Available [address], [address], 05/19/2024 03:49:51 05/16/20 24 05/19/2024 CULTU RE, URINE , ROUTI NE culture, urine, routine CULTU RE, URINE , ROUTI NE Micro Numbe r: [id number] Test Statu s: Final Speci men [...] or addit ional testi ng. Not Available [address] [address] [place], [address], 05/19/2024 03:49:52 04/13/20 22 03/27/2022 home sleep study No observ ation record ed. [id number] [place] [address], [address], 11/28/2022 02:59:32 06/29/20 22 06/23/2022 US, echoc ardio gram, trans thora cic, compl ete, w/ color flow No observ ation record ed. [id number] [address] [facility], [place], [address], 11/28/2022 02:59:32 07/30/20 22 07/03/2022 polys omnog timothy , titra tion study (PROC ) No observ ation record ed. [email or web address] [facility] [address] [place], [address], 11/28/2022 02:59:32 09/12/20 22 07/29/2018 audio logic asses sment (PROC ) No observ ation record ed. [id number] [facility] [address], [place], [address], 11/28/2022 02:59:32 02/07/20 23 02/06/2023 xuan can cardi olite stres s test (PROC ) No observ ation record ed. [email or web address] [facility] [address], [place], [address], 06/24/2023 17:38:35 05/02/20 23 05/02/2023 colon oscop y proce dure (PROC ) No observ ation record ed. [email or web address] Cuco Weeks MD [address] [facility] [address], [place], [address], 06/24/2023 17:38:20 Result Notes None recorded. Problems Name Problem SNOMED Code Status Onset Date Resolution Date Notes Provider Name and Address Organization Details Recorded Time Tight chest 02592536 Active 2021 Not Available [facility] 3 17:05:14 Seasonal allergic rhinitis 945976936 Active 2021 Not Available [facility] 3 17:05:14 Left ventricular diastolic dysfunction 927082204 Active 2021 Not Available [facility] 3 17:05:14 Prostate specific antigen above reference range 683703891 Active 2021 Not Available [facility] 3 17:05:14 Dyspnea on exertion 95602132 Active 2021 Not Available [facility] 3 17:05:14 Sleep apnea 27899422 Active 2021 Not Available [facility] 3 17:05:14 Obstructive sleep apnea syndrome 08620782 Active 2021 Not Available [facility] 3 17:05:14 Atypical chest pain 218340158 Active 2022 Not Available [facility] 3 17:05:14 Allergic rhinitis 79220938 Active 2022 Not Available [facility] 3 17:05:14 Blood glucose outside reference range 044197442 Active 2022 Not Available [facility] 3 17:05:14 Erectile dysfunction 680118241 Active 2022 Not Available [facility] 3 17:05:14 Problem Notes None recorded. Procedures Surgical History Date Name Laterality Status Provider Name and Address Organization Details Recorded Time 2 Sinus Surgery completed Not Available [facility] 11/28/2022 02:44:54 6 partial repair of rotator cuff completed Not Available [facility] 11/28/2022 02:44:54 Imaging Results None recorded. Procedure Notes None recorded. Medical Equipment None [...] Not Available No t Available Flucelvax Quad (PF) 60 mcg (15 mcg x [...] active Approved wegovy. Valid: 12/13/22- 07/15/23 . PA# [facility] [phone]. Not Available Not Available Not [...] 3 177.8 cm 97.2 [degF] 47.8 kg/m2 093087. 26 g 16 /min 96 % 96 % 68 /min 122/80 mm[Hg] DANICA Fonseca [place] - [facility] [employer] [facility] 3 17:24:10 Date Recorded Body mass index (BMI) Body height Oxygen saturation Oxygen saturation in Arterial blood by Pulse oximetry Heart rate Respiratory rate Body temperature Body weight Systolic And Diastolic Provider Name and Address Organization Details Last Updated DateTime 2 46.9 kg/m2 177.8 cm 96 % 96 % 62 /min 20 /min 96.5 [degF] 717077. 7 g 126/70 mm[Hg] Not Available [facility] 3 02:47:50 Date Recorded Body mass index (BMI) Provider Name and Address Organization Details Last Updated DateTime 06/24/2023 48.8 kg/m2 ALESHIA Ervin [address] [facility], [facility] [address], [place], [address], [facility] [email or web address] 06/30/2023 11:50:50 Date Recorded Body height Body weight Body temperature Heart rate Oxygen saturation Oxygen saturation in Arterial blood by Pulse oximetry Systolic And Diastolic Provider Name and Address Organization Details Last Updated DateTime 3 177.8 cm 087869. 41 g 97.3 [degF] 71 /min 98 % 98 % 132/70 mm[Hg] Meryl Howell RN [facility] [email or web address] [facility] 3 17:31:56 Date Recorded Body mass index (BMI) Body height Oxygen saturation Oxygen saturation in Arterial blood by Pulse oximetry Heart rate Body temperature Body weight Systolic And Diastolic Provider Name and Address Organization Details Last Updated DateTime 1 46.9 kg/m2 177.8 cm 98 % 98 % 64 /min 98 [degF] 302581. 7 g 120/80 mm[Hg] Not Available [facility] 3 02:47:50 Date Recorded Body mass index (BMI) Body height Oxygen saturation Oxygen saturation in Arterial blood by Pulse oximetry Heart rate Respiratory rate Body temperature Body weight Systolic And Diastolic Provider Name and Address Organization Details Last Updated DateTime 2 46.6 kg/m2 177.8 cm 95 % 95 % 62 /min 20 /min 97.1 [degF] 535307. 52 g 130/82 mm[Hg] Not Available [facility] 3 02:47:50 Social History Question Answer Notes LastModified by Organizat ion Details LastModified Time Tobacco Smoking Status Never Smoker Not Available [facility] 11/28/2022 02:39:11 What Is Your Level Of Caffeine Consumption? Heavy [id number] Information not available 11/28/2022 How Much Tobacco Do You Chew? None [id number] Information not available 11/28/2022 In The 14 Days Before Symptom Onset, Have You Had Close Contact With A Laboratory-confirm ed COVID-19 While That Case Was Ill? No [id number] Information not available 11/28/2022 In The 14 Days Before Symptom Onset, Have You Had Close Contact With A Person Who Is Under Investigation For COVID-19 While That Person Was Ill? No [id number] Information not available 11/28/2022 What Type Of Diet Are You Following? REGULAR [id number] Information not available 11/28/2022 Which Illicit Or Recreational Drugs Have You Used? None MIGRATION.[id number] 026 Information not available 11/28/2022 Have There Been Any Changes To Your Family Or Social Situation? No MIGRATION.[id number] 026 Information not available 11/28/2022 Are There Any Guns Present In Your Home? No MIGRATION.[id number] 026 Information not available 11/28/2022 Do You Use Insect Repellent Routinely? No MIGRATION.[id number] 026 Information not available 11/28/2022 What Is Your Relationship Status? MIGRATION.[id number] 026 Information not available 11/28/2022 Do You Use Your Seat Belt Or Car Seat Routinely? Yes [email or web address] Information not available 06/21/2023 Do You Have Smoke And Carbon Monoxide Detectors In Your Home? Yes MIGRATION.8108750 026 Information not available 11/28/2022 How Much Tobacco Do You Smoke? No MIGRATION.3561184 026 Information not available 11/28/2022 Do You Use Sunscreen Routinely? Yes MIGRATION.[id number] 026 Information not available 11/28/2022 How Many Years Have You Smoked Tobacco? 0 MIGRATION.5591080 026 Information not available 11/28/2022 Have You Recently Traveled Abroad? No MIGRATION.5466462 026 Information not available 11/28/2022 Do You Have Any Dietary Restrictions? No MIGRATION.9231119 026 Information not available 11/28/2022 Sex: Unknown Functional Status Question Answer Note LastModified by Organizat ion Details LastModified Time Do you use any illicit or recreational drugs? No MIGRATION.[id number] 026 Information not available 11/28/2022 Do you or have you ever used any other forms of tobacco or nicotine? No MIGRATION.7864056 026 Information not available 11/28/2022 What is your level of alcohol consumption? Occasional MIGRATION.1183109 026 Information not available 11/28/2022 What is your exercise level? None MIGRATION.0680911 026 Information not available 11/28/2022 Mental Status None recorded. Family History Relationship Description Onset Age of this Age Resolved Age Notes LastModified by Organization Details LastModified Time Brother Pulmonary embolism [id number] Not available 11/28/2022 02:44:58 Sister Pulmonary embolism MIGRATION.[id number] Not available 11/28/2022 02:44:58 Sister Malignant tumor of pancreas MIGRATION.[id number] Not available 11/28/2022 02:44:58 Father General health good MIGRATION.993 [id number] Not available 11/28/2022 02:44:58 Medical History Condition Response NERVE DISEASE N BLINDNESS N RHEUMATIC FEVER N KIDNEY STONES N BLADDER PROBLEMS N OTHER # 1 N POLIO N LUNG DISEASE/DISORDER N COPD N RADIATION / CHEMOTHERAPY N Other # 2 N BLOOD DISEASES N SURGERY N EAR OR HEARING PROBLEMS N MUMPS N DEPRESSION (INCLUDING POST ) N BOWEL PROBLEMS N STROKE/TIA N ULCERS N BENIGN PROSTATIC HYPERPLASIA N MEASLES N MYOCARDIAL INFARCTION N OBESITY N GERD/NAUSEA N ANEURYSM N URINARY/BLADDER/KIDNEY PROBLEMS N CORONARY ARTERY DISEASE (CAD) N INPATIENT PSYCH CARE N ADDICTION CONCERNS N Impotence N ENDOMETRIOSIS N USE OF BLOOD THINNERS N SKIN [...] APNEA N CHICKENPOX N INFECTIOUS DISEASE N PROSTATE N HEART ARRHYTHMIA N INSOMNIA N HIGH CHOLESTEROL / HYPERLIPIDEMIA N EYE PROBLEMS N HYPERTHYROIDISM N NEUROLOGICAL PROBLEMS N EDEMA N CHRONIC PAIN SYNDROME N HYPOTHYROIDISM N CAROTID BLOCKAGE N CONSTIPATION N BACK / NECK PROBLEMS N HAVE YOU BEEN HOSPITALIZED OR SEEN IN [facility] IN THE PAST YEAR ? N [...] N ALZHEIMER'S DISEASE N Brain Problems N DEMENTIA N HERPES N SEIZURES/EPILEPSY N HEADACHES/MIGRAINES N VASCULAR DISEASE N PACEMAKER N Blood Disorder N DIZZINESS N HEART DISEASE/HEART PROBLEMS N KIDNEY DISEASE N MULTIPLE SCLEROSIS N CANCER: SPECIFY N CARDIAC ARRHYTHMIA N ANESTHESIA COMPLICATIONS N ATRIAL FIBRILLATION N Gall Stones N PULMONARY EMBOLISM N AUTOIMMUNE DISEASE N Immunizations Vaccine Type Date Status Note Provider Nam e and Address Organization Details Recorded Time Influenza, split virus, quadrivalent, preservative 1 completed Not Available [facility] 11/28/2022 02:58:46 Influenza, split virus, quadrivalent, preservative 2 completed Not Available [facility] 11/28/2022 02:58:46 COVID-19, mRNA, LNP-S, PF, 30 mcg/0.3 mL dose 2 completed Not Available [facility] 11/28/2022 02:58:46 COVID-19, mRNA, LNP-S, PF, 100 mcg/0.5mL dose or 50 mcg/0.25mL dose 1 completed Not Available [facility] 11/28/2022 02:58:46 COVID-19, mRNA, LNP-S, PF, 30 mcg/0.3 mL dose 1 completed Not Available [facility] 11/28/2022 02:58:47 COVID-19, mRNA, LNP-S, PF, 30 mcg/0.3 mL dose 1 completed Not Available [facility] 11/28/2022 02:58:47 Influenza, split virus, quadrivalent, preservative 8 completed Not Available [facility] 11/28/2022 02:58:47 influenza, unspecified formulation 3 completed Mariama Keenan RMMilagros null, [place] [facility] 07/10/2023 15:01:17 COVID-19, mRNA, LNP-S, PF, 30 mcg/0.3 mL dose 3 completed Mariama Keenan RMA null, [place] [facility] 07/10/2023 15:02:52 zoster, unspecified formulation 3 completed Mariama Keenan RMA null, [place] [facility] 08/30/2023 15:56:28 pneumococcal, unspecified formulation 3 completed DANICA Fonseca null, [place] [facility] 08/30/2023 15:57:05 Past Encounters Encounter ID Performer Location Encounter Start Date Encounter Closed Date Diagnosis/Indication Diagnosis SNOMED-CT Code Diagnosis ICD10 Code Diagnosis Note [id number] ALESHIA Ervin [facility] [place] [address] [place] [address] 12/12/2020 00:00:00 12/28/2020 11:59:58 [id number] ALESHIA Ervin [facility] [place] [address] [place] [address] 04/05/2021 00:00:00 04/23/2021 17:34:08 [id number] ALESHIA Ervin [facility] [place] [address] [place] [address] 08/11/2021 00:00:00 09/20/2021 13:45:16 [id number] Tripp Mena MD [facility] [place] [address] [place] [address] 02/07/2022 00:00:00 02/18/2022 12:24:38 [id number] ALESHIA Ervin [facility] [place] [address] [place] [address] 08/13/2022 00:00:00 08/29/2022 18:38:52 [id number] ALESHIA Ervin [facility] [place] [address] [place] [address] 12/10/2022 17:15:05 12/10/2022 17:52:32 Obstructive sleep apnea syndrome 27123589 G47.33 on cpap , still trying to get used to it. Atypical chest pain 1025 68791 R07.89 refer again for lexiscan stress testing. pt cannot complete treadmill testing due to arthritis in the knees. Left ventr icular diastolic dysfunction 933616716 I50.30 on diltiazem and stable. Prostate s pecific antigen above reference range 370507219 R97.20 followed routinely with urology and UTD on exam Allergic rhinitis 439504 04 J30.9 stable on singulair and flonase. History of polyp of colon 086825609 Z86.010 due for f/u colonoscop y Body mass index 40+ - severely obese 612276783 Z68.42 start wegovy if insurance will cover Long-term drug therapy 990744077 Z79.899 next labs set due in may Blood gluc ose outside reference range 319295364 R73.09 following A1c. Cholesterol screening 27 2867884 Z13.634 [id number] ALESHIA Ervin [facility] [place] [address] [place] [address] 06/24/2023 17:26:02 06/24/2023 18:02:43 Adult health examination 676552750 Z00.01 well exam completed. . Left ventr icular diastolic dysfunction 516422922 I50.30 on diltiazem and stable. (noted on echo testing) Prostate s pecific antigen above reference range 679625058 R97.20 followed routinely with urology and UTD on exam Obstructiv e sleep apnea syndrome 27154538 G47.33 on cpap , still trying to get used to it. Allergic rhinitis 682149 04 J30.9 stable on singulair and flonase. Body mass index 40+ - severely obese 382152449 Z68.42 Long-term drug therapy 616804867 Z79.899 Erectile dysfunction 860 792171 F52.21 trial of tadalafil 20mg daily PRN Health Concerns Section Related Observation LastModified by Organization Detai ls LastModified Time None Recorded Concern Status LastModified by Organization Details LastModified Time None Recorded Advance Directives Directive None Recorded Payers Encounter Date Sequence Insurance Name Policy Number Policy Rojas Covered Member ID Rojas Member ID Guarantor Name 12/10/2022 1 [employer] [id number] Sourav Evans [id number] Sourav Evans 06/24/2023 1 [employer] [id number] 8 Sourav Evans [id number] Sourav Evans Notes Date Note Type Note Provider Name and Address Organization Details Recorded Time 08/11/2021 text/html Generic HPI TemplateReported bypatient.Notes:Pt is here today for a 6 month follow up, doing fine,no complaints Not Available [facility] 09/20/2021 13:45:16 02/07/2022 text/html Generic HPI TemplateReported bypatient.Notes:Here for wellness. No chronic problems. No major complaints. He does have chronic allergies and needs a rf on his nasal spray and montelukast. 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 ALESHIA Ervin [address] [facility] [place] [place], [address], [place] [facility] 12/16/2022 12:01:09 06/24/2023 text/html Obstructive Slee p [...] use to his CPAP. wellness ALESHIA Ervin [address], [place], [address], [place] [facility] 06/30/2023 11:53:13
--- OUTSIDE RECORDS SUMMARY | 2025-02-20 06:56 | XMS_ITS | Clinical Summary ---
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
[2025-02-20 08:17] LABS: Prostate Specific Antigen 0.4 ng/mL (< OR = 4.0)
== END 2025-02-20 06:53 | disposition home or self-care (01) ==
LOC: CHSLAB 06:54
PROVIDERS: PCP Physician Assistant; Visit Provider Nurse Practitioner
DX: C61 Malignant neoplasm of prostate (principal)
CPT/HCPCS: 36415; 84153